=== PATIENT | female | born 1960 | race Caucasian/White ===

== ENCOUNTER 2016-05-15 10:09 | Inpatient (IN) | payer MEDICAID ==
--- NOTE | 2016-05-15 10:11 | EDPHY ---
H & P HPI/ROS: CHIEF COMPLAINT: Fainting in general malaise HISTORY OF PRESENT ILLNESS: This is a 56-year-old female brought to the emergency department by ambulance. She has a history of peptic ulcer disease/ alcohol induced gastritis, anemia, IBS, and depression/PTSD. She initially stated that she had a syncopal episode at home this morning. Upon further questioning she tells me that she was washing her hair, bending her head forward over a basin, began to feel as if she might faint, and was able to lower herself to the ground. She states that there was no actual loss of consciousness. She has not been taking her PPI. She had dark stools about 3 weeks ago, none since. She has had some recent vomiting but has not had coffee- ground emesis or bloody emesis. She reports heartburn in some mid epigastric discomfort that is not unusual for her. She has not taken NSAIDs. She was hospitalized in the spring at that time had upper endoscopy and colonoscopy performed. She has had multiple endoscopic procedures for evaluation of her peptic ulcer disease, gastritis, GI bleeding, and anemia. In addition to the presyncopal episode that she reports she states that she feels poorly overall. She has fatigue, headache, sore throat, and sinus congestion. She believes that she has had fevers on and off at home over the last few days. REVIEW OF SYSTEMS: A ten point review of systems was performed and is negative with the exception of the items mentioned in the HPI. Source: Patient Exam Limitations: No limitations - Personal History Tetanus Vaccine Date: 2005 - Medical/Surgical History Hx Asthma: No Hx Chronic Respiratory Disease: No Hx Diabetes: No Hx Cardiac Disease: No Hx Renal Disease: No Hx Cirrhosis: No Hx Alcoholism: Yes Hx HIV/AIDS: No Hx Splenectomy or Spleen Trauma: No Other PMH: 1. Peptic ulcer disease/alcohol induced gastritis. 2. History of alcohol abuse, sober for 8 years. 3. History of anemia with baseline hemoglobin between 9 and 11. 4. Charcot Carol Tooth deformities. 5. Depression , anxiety, and PTSD. 6. GERD with esophageal stricture requiring dilatation. 7. Hypertension. Number a cholecystectomy in 2010. 9. Bilateral mastectomies with breast reconstruction. 10. Shingles involving her scalp - Social History Smoking Status: Never smoked Alcohol Use: Sober Drug Use: None Additional Social History: She lives alone. She is originally from [place]. 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 She reports that her mother in February. She has a new primary care physician, Dr. Prajapati. She sees Dr. Carver, neurology - Physical Exam Exam: General Appearance: Alert. Vital signs reviewed. Blood pressure 141/92. Head: Scabs on the vertex that have been present for months. No vesicles. Eyes: Pupils equal and round, no conjunctival injection, no discharge. Anicteric. ENT, Mouth: Mucous membranes are slightly dry, mild oropharyngeal erythema or edema. Swallowing and managing her secretions easily. There is a tender 1/2 cm mass behind the right pinna. No mastoid tenderness. Neck: No lymphadenopathy, supple. Trachea midline. Respiratory: Lungs are clear to auscultation; no wheezes, rales, or rhonchi. Cardiovascular: Regular rate and rhythm; no murmur, rub, or gallop. Gastrointestinal: Abdomen is soft and nontender, no masses or organomegaly, bowel sounds normal. Skin: Warm and dry, normal color. Back: Nontender to palpation over the thoracolumbar spine. No CVAT. Extremities: No lower extremity edema, no calf tenderness or swelling. There is a cast on the left foot and lower leg. Neurological: Alert and oriented. Moving all four extremities easily and equally. Cranial nerves II through XII are examined and are intact (visual acuity not tested). Strength is 5 over 5 bilaterally with testing of all major motor groups--left lower extremity not tested due to cast in place. Sensation is intact to light touch over all 4 extremities. . Psychiatric: Slightly anxious. Constitutional: Initial Vital Signs Temperature (C) 37.7 C 05/15/16 10:10 Heart Rate 96 05/15/16 10:10 Respiratory Rate 16 05/15/16 10:10 Blood Pressure 141/92 H 05/15/16 10:10 O2 Sat (%) 99 05/15/16 10:10 O2 Delivery Mode Room Air Allergies/Adverse Reactions: Penicillins Allergy (Severe, Verified 04/02/16 09:54) Anaphylaxis meperidine HCl [From Demerol] Allergy (Mild, Verified 04/02/16 09:54) SITE RASH atenolol Allergy (Verified 04/02/16 09:54) hydrocodone bitartrate [From Lortab] Allergy (Verified 04/02/16 09:54) morphine Allergy (Verified 04/02/16 09:54) venom-honey bee [bee venom (honey bee)] Allergy (Verified 04/02/16 09:54) Home Medications: Medication Instructions Recorded Baclofen [Baclofen 10 mg (*)] 30 mg PO TID 11/12/11 Calcium Carb W/Vit D [Calcium Carb 500 mg PO DAILY 11/12/11 W/Vit D 500/200 (*)] Losartan/Hydrochlorothiazide 1 each PO DAILY 11/12/11 [Losartan-Hctz 100-25 mg Tab] clonazePAM [Klonopin (*)] 1 mg PO BID 11/12/11 Escitalopram Oxalate [Lexapro] 20 mg PO DAILY 03/23/14 Topiramate [Topamax 25MG (*)] 50 mg PO DAILY 08/15/14 Vitamin B Complex [B Complex] 1 each PO DAILY 08/15/14 Pantoprazole Sodium [Protonix 40mg 40 mg PO DAILY #30 tab 08/17/14 (*)] Pregabalin [Lyrica 75mg (*)] 75 mg PO BID 05/15/16 hydrOXYzine HCL [hydrOXYzine HCL 25 mg PO QID PRN 05/15/16 (RX)] Medical Decision Making - Diagnostics EKG Interpretation: 12 lead EKG is interpreted in Trace master View by emergency department physician. ED Course/Re-evaluation: 56-year-old female with a history of anemia and peptic ulcer disease who presents with what sounds like a presyncopal episode. I suspect that this is secondary to anemia and poor oral intake. I doubt a cardiac etiology. EKG shows normal sinus rhythm. She is found to have a hemoglobin of 6.7 and hematocrit of 23. Stool is negative for occult blood. She is not tachycardic or hypotensive in the emergency department. It is not clear whether there is ongoing bleeding or whether this is her chronic anemia. She is being typed and crossed for packed red blood cells. She will be admitted to the hospitalist service. Gastroenterology has been consulted via telephone. She has complained of headache, sinus congestion, and sore throat. Temperature was 37.7 in the emergency department. She does not have signs of strep pharyngitis on exam. Influenza is a possibility,albeit unlikely. She could have sinus infection--these are usually viral. I have reviewed her previous records, including her upper endoscopy report and colonoscopy report from August of 2014. Differential Diagnosis: Syncope including but not limited to vasovagal syncope, arrhythmia, dehydration , and blood loss. - Data Points Laboratory Results: Laboratory Results 05/15/16 10:12 05/15/16 10:12 05/15/16 05/15/16 05/15/16 11:55 11:30 10:12 WBC 6.83 10^3/uL (3.80-9.50) RBC 3.09 L 10^6/uL (4.18-5.33) Hgb 6.7 L g/dL (12.6-16.3) Hct 23.5 L % (38.0-47.0) MCV 76.1 L fL (81.5-99.8) MCH 21.7 L pg (27.9-34.1) MCHC 28.5 L g/dL (32.4-36.7) RDW 18.0 H % (11.5-15.2) Plt Count 605 H 10^3/uL (150-400) MPV 10.1 fL (8.7-11.7) Neut % (Auto) 75.8 H % (39.3-74.2) Lymph % (Auto) 17.3 % (15.0-45.0) [place] % (Auto) 6.1 % (4.5-13.0) Eos % (Auto) 0.1 L % (0.6-7.6) Baso % (Auto) 0.1 L % (0.3-1.7) Nucleat RBC Rel Count 0.3 H % (0.0-0.2) Absolute Neuts (auto) 5.17 10^3/uL (1.70-6.50) Absolute Lymphs (auto) 1.18 10^3/uL (1.00-3.00) Absolute Monos (auto) 0.42 10^3/uL (0.30-0.80) Absolute Eos (auto) 0.01 L 10^3/uL (0.03-0.40) Absolute Basos (auto) 0.01 L 10^3/uL (0.02-0.10) Absolute Nucleated RBC 0.02 H 10^3/uL (0-0.01) Immature Gran % 0.6 % (0.0-1.1) Immature Gran # 0.04 10^3/uL (0.00-0.10) Platelet Estimate INCREASED H (ADEQ) Polychromasia 1+ H Hypochromasia 2+ H Microcytic Cells 2+ H Target Cells 1+ H Tear Drop Cells 1+ H Stomatocytes 2+ H Elliptocytes 1+ H Smear Review By Pending Sodium 140 mEq/L (134-144) Potassium 3.6 mEq/L (3.5-5.2) Chloride 103 mEq/L (97-110) Carbon Dioxide 19 L mEq/l (22-31) Anion Gap 18 mEq/L (8-16) BUN 16 mg/dL (7-23) Creatinine 0.7 mg/dL (0.6-1.0) Estimated GFR > 60 Glucose 111 H mg/dL (70-100) Calcium 9.5 mg/dL (8.5-10.4) Iron 17.0 L mcg/dL (37-170) TIBC 559 H ug/dL (260-490) Iron Saturation 3 L % (20-55) Ferritin 3.5 L ng/mL (6.2-264.0) Troponin I < 0.012 ng/mL (0-0.034) Stool Occult Bld Scrn NEGATIVE (NEGATIVE) Patient ABO/Rh O POSITIVE Antibody Screen NEGATIVE Crossmatch IS Only See Detail Medications Given: Discontinued Medications Acetaminophen (Tylenol) 1,000 mg PO EDNOW ONE Stop: 05/15/16 10:41 Last Admin: 05/15/16 10:47 Dose: 500 mg Hydromorphone HCl (Dilaudid) 0.5 mg IVP EDNOW ONE Stop: 05/15/16 12:01 Last Admin: 05/15/16 12:36 Dose: 0.5 mg Lorazepam (Ativan Injection) 1 mg IVP EDNOW ONE Stop: 05/15/16 12:02 Last Admin: 05/15/16 12:37 Dose: 1 mg Ondansetron HCl (Zofran) 4 mg IVP EDNOW ONE Stop: 05/15/16 12:01 Last Admin: 05/15/16 12:37 Dose: 4 mg Oxycodone/Acetaminophen (Percocet 5/325) 1 tab PO EDNOW ONE Stop: 05/15/16 10:49 Last Admin: 05/15/16 10:50 Dose: 1 tab Departure - Departure Disposition: [facility] Inpatient Acute Clinical Impression: Pre-syncope Anemia Qualifiers: Anemia type: unspecified type Qualifier Code: (D64.9) Anemia, unspecified Condition: Good
--- NOTE | 2016-05-15 10:33 | CPEKG ---
Heart Rate: 94 RR Interval: 638 P-R Interval: 144 QRSD Interval: 78 QT Interval: 408 QTC Interval: 511 P [place]: 72 QRS [place]: 69 T Wave [place]: 8 EKG Severity - ABNORMAL ECG - EKG Impression: SINUS RHYTHM EKG Impression: PROLONGED QT INTERVAL Electronically Signed By: Jennifer Sellers 15-May-2016 15:18:52
[2016-05-15] MEDS ORDERED: ACETAMINOPHEN 500 MG TAB PO ONE (10:40)
[2016-05-15 10:42] LABS: % IMMATURE GRANULYOCYTES 0.6 % (0.0-1.1); ABSOLUTE IMMATURE GRANULOCYTES 0.04 10^3/uL (0.00-0.10); ABSOLUTE NRBC COUNT 0.02 10^3/uL (0-0.01); ADD DIFF? NO; ADD MORPH? YES; ADD SCAN? NO; ATYPICAL LYMPHOCYTE FLAG 20 (0-99); FRAGMENT RBC FLAG 40 (0-99); HEMATOCRIT 23.5 % (38.0-47.0); LEFT SHIFT FLG 0 (0-99); LIPEMIA HEMOLYSIS FLAG 70 (0-99); MEAN CELL HEMOGLOBIN 21.7 pg (27.9-34.1); MEAN CELL VOLUME 76.1 fL (81.5-99.8); MEAN PLATELET VOLUME 10.1 fL (8.7-11.7); NRBC-AUTO% 0.3 % (0.0-0.2); PLATELET CLUMPS FLAG 0 (0-99); PLATELET COUNT 605 10^3/uL (150-400); RED BLOOD CELL COUNT 3.09 10^6/uL (4.18-5.33)
[2016-05-15 10:43] LABS: HEMOGLOBIN 6.7 g/dL (12.6-16.3); MEAN CELL HEMOGLOBIN CONCENTR. 28.5 g/dL (32.4-36.7)
[2016-05-15] MEDS ORDERED: OXYCODONE/APAP 5/325 TAB PO ONE (10:48)
[2016-05-15] MEDS ORDERED: OXYCODONE/APAP 5/325 TAB ONE (10:48)
[2016-05-15 10:50] LABS: ANION GAP 18 mEq/L (8-16); CALCIUM 9.5 mg/dL (8.5-10.4); CARBON DIOXIDE 19 mEq/l (22-31); CHLORIDE 103 mEq/L (97-110); CREATININE 0.7 mg/dL (0.6-1.0); GLOMERULAR FILTRATION RATE > 60; GLUCOSE 111 mg/dL (70-100); POTASSIUM 3.6 mEq/L (3.5-5.2); SODIUM 140 mEq/L (134-144)
[2016-05-15 11:10] LABS: HYPOCHROMIA 2+; MICROCYTES 2+; POLYCHROMASIA 1+
[2016-05-15 11:11] LABS: ELLIPTOCYTES 1+; PLATELET ESTIMATE INCREASED (ADEQ); STOMATOCYTES 2+; TARGET CELLS 1+
[2016-05-15] MEDS ORDERED: PANTOPRAZOLE SODIUM 80 MG in NS 100 ML IV ONE ×2 (11:32→19:00)
[2016-05-15] MEDS ORDERED: HYDROmorphONE/DILAUDID 1 MG/ML SYR IVP ONE (12:00)
[2016-05-15] MEDS ORDERED: ONDANSETRON 4 MG/2 ML VIAL IVP ONE (12:00)
[2016-05-15] MEDS ORDERED: LORazepam 2 MG/ML INJ IVP ONE (12:01)
[2016-05-15] MEDS ORDERED: ONDANSETRON 4 MG/2 ML VIAL IVP PRN (13:25)
[2016-05-15] MEDS ORDERED: ONDANSETRON DISINTEGRATING 4 MG TAB PO PRN (13:25)
[2016-05-15] MEDS ORDERED: hydrOXYzine HCL 25 MG TAB PO PRN (13:31)
--- NOTE | 2016-05-15 14:44 | GHP ---
[f rep st] HISTORY AND PHYSICAL DATE OF ADMISSION: 05/15/2016 CHIEF COMPLAINT: Syncope, anemia. HISTORY OF PRESENT ILLNESS: Patient is a 56-year-old female with history of peptic ulcer disease, chronic anemia, alcohol-induced gastritis, presenting after a syncopal episode today. She reports having a syncopal episode about a week ago in which she went downstairs to get a package from the mailman. After climbing the stairs, she said she stumbled into her apartment. At that time, she reported only nausea with the episode. Today, she was getting ready to go to her new PCP appointment and just was feeling terrible all over. She felt a clammy sensation, sweaty, and a tightness in her chest, and then passed out. She said she was not out very long and she awoke without any confusion. Denies any tongue biting, or bowel or bladder incontinence. She says that she feels this way when she is needing blood. She reports having black, melenic stools 3 weeks ago for about 2-3 days. This was associated with increased heartburn and cramping. Also reports increased fatigue over this time period and has had a headache for 2 days. She also reports having sinus infection symptoms, including congestion, sore throat. She reports epigastric pain intermittently with decreased p.o. intake. Has had some nausea and vomiting this morning without any blood or coffee-grounds emesis. She has history of IBS and has loose stools, anywhere from 2-5 a day. She reports chronic numbness in hands and feet secondary to Charcot-Carol- Tooth. She also reports having shingles for several months and was never treated for it on her scalp. 02/2011: Normal colonoscopy, large hiatal hernia 08/2014: rectal polyp, duodenal biopsy negative REVIEW OF SYSTEMS: A complete a 10-point review of systems negative except as noted in HPI. PAST MEDICAL HISTORY: 1. Peptic ulcer disease, alcohol-induced gastritis. 2. Esophageal stricture, status post several dilatations. 3. History of anemia with a baseline hemoglobin 9.5 to 11. 4. History of alcoholism. 5. Jpryoss-Zniqe-Lfqcl. 6. Left broken foot in February 2016. 7. Major depressive disorder, anxiety, and PTSD. 8. GERD. 9. History of chronic pain . 10. IBS PAST SURGICAL HISTORY: 1. Bilateral mastectomies prophylactically. 2. Breast reconstruction bilaterally. 3. Gallbladder. 4. Ankle surgery on the right. 5. Several esophageal dilatations. SOCIAL HISTORY: Lives in [place] alone in an apartment with her dog. Recovering alcoholic, sober for 8 years. No illicits or drugs. Mother recently in February of 2016. ALLERGIES: Penicillin, Demerol, morphine. MEDICATIONS: See medication reconciliation. FAMILY HISTORY: Two sisters of breast cancer. Mother with aplastic anemia. PHYSICAL EXAM: VITAL SIGNS: Temperature 38, blood pressure 115/63, heart rate 80, respirations 18, 97% on room air. GENERAL: Patient is a tired-appearing, pale. HEENT: PERRLA, EOMI. Oropharynx with a left swollen tonsil, but no exudate or significant erythema. Airway is patent. Midline scalp: She has a scabbed over lesion. Pale conjunctivae. CV: Regular rate and rhythm. No murmurs, gallops, or rubs. LUNGS: Clear to auscultation bilaterally. ABDOMEN : Soft, nontender, nondistended. Positive bowel sounds. : No suprapubic tenderness. MUSCULOSKELETAL: 5/5 upper and lower extremity strength. Left foot is in a cast. NEURO: 2-12 intact. No focal deficits. PSYCH: Alert and oriented x3. Difficult to keep on point when asking questions. LABS: WBC 6.8, hemoglobin 6.7, hematocrit 23, platelets 605. Sodium 140, potassium 3.6, chloride 103, bicarb 26, BUN 16, creatinine 0.7, glucose 111. Iron studies are pending. Urine is pending. Fecal occult blood is negative. ASSESSMENT AND PLAN: 1. Syncope: Suspect this is multifactorial in the setting of anemia and decreased p.o. intake. There is no evidence of ischemia on the EKG. We will check a troponin. Monitor on telemetry. 2. Microcytic anemia: H/H here 6.7 23; baseline 02/02. Patient reports having dark, tarry stools 3 weeks ago; none recently. No recent NSAID use. Does have a history of peptic ulcer disease. In the last hospitalization in 2013 , she had an endoscopy, as well as a capsule study. She was supposed to follow up with a ticket manager at that time, which she has not done. It sounds like she has not. Will transfuse 2 units RBCs and GI will be consulted for further recommendations. Iron studies are pending. 3. History of gastroesophageal reflux disease: PPI drip. 4. Depression: Continue home medications. 5. Wnehhxq-Nlvuz-Jzymh: Continue home medications. 6. Reported shingles: Patient has scabbed over lesions over her scalp for several months; no blister or open lesions. Distribution not c/w shingles. 7. History of alcohol abuse: Reports being sober for 8 years. 8. Diet: clear diet 9. Deep venous thrombosis prophylaxis: SCDs given anemia. DISPOSITION: Patient warrants observation admission given anemia, warranting blood transfusion and GI evaluation. /[id number]/MODL MTDD
[2016-05-15 15:01] LABS: % SATURATION 3 % (20-55); TOTAL IRON BINDING CAPACITY 559 ug/dL (260-490)
[2016-05-15 15:06] LABS: TROPONIN I < 0.012 ng/mL (0-0.034)
[2016-05-15 15:29] LABS: FERRITIN - BCH 3.5 ng/mL (6.2-264.0)
[2016-05-15 16:00] LABS: APTT 28.6 SEC (23.0-38.0); PROTIME(PATIENT) 13.1 SEC (12.0-15.0)
[2016-05-15] MEDS: ACETAMINOPHEN 325 MG TAB PO PRN (16:07)
[2016-05-15] MEDS: BACLOFEN 10 MG TAB PO SCH ×2 (16:07→21:29)
[2016-05-15 16:24] LABS: ALBUMIN 3.9 g/dL (3.5-5.0); BILIRUBIN,TOTAL 0.4 mg/dL (0.1-1.4); BILIRUBIN-CONJUGATED 0.3 mg/dL (0.0-0.5); BILIRUBIN-UNCONJUGATED 0.1 mg/dL (0.0-1.1); TOTAL PROTEIN 6.7 g/dL (6.3-8.2)
[2016-05-15] MEDS: PSEUDOEPHEDRINE HCL 30 MG TAB PO PRN (17:18)
[2016-05-15] MEDS: guaiFENesin 200 MG TAB PO PRN (21:28)
[2016-05-15] MEDS: clonazePAM 0.5 MG TAB PO SCH (21:28)
[2016-05-15] MEDS: ZOLPIDEM TARTRATE 5 MG TAB PO PRN (21:28)
[2016-05-15] MEDS: PANTOPRAZOLE SODIUM 80 MG in NS 100 ML IV SCH (21:29)
[2016-05-15] MEDS: PREGABALIN 75 MG CAP PO SCH (21:29)
[2016-05-15 21:46] LABS: HEMATOCRIT 27.7 % (38.0-47.0); HEMOGLOBIN 8.5 g/dL (12.6-16.3)
[2016-05-15] MEDS: NS 1,000 ML IV SCH (22:03)
[2016-05-16] MEDS: PSEUDOEPHEDRINE HCL 30 MG TAB PO PRN ×2 (02:50→22:49)
[2016-05-16] MEDS: ACETAMINOPHEN 325 MG TAB PO PRN (04:47)
[2016-05-16] MEDS: guaiFENesin 200 MG TAB PO PRN ×4 (04:47→22:31)
[2016-05-16] MEDS: NS 1,000 ML IV SCH (06:06)
[2016-05-16] MEDS: PANTOPRAZOLE SODIUM 80 MG in NS 100 ML IV SCH ×2 (06:06→17:08)
[2016-05-16 06:15] LABS: HEMATOCRIT 25.6 % (38.0-47.0); HEMOGLOBIN 7.6 g/dL (12.6-16.3); MEAN CELL HEMOGLOBIN 23.6 pg (27.9-34.1); MEAN CELL HEMOGLOBIN CONCENTR. 29.7 g/dL (32.4-36.7); MEAN CELL VOLUME 79.5 fL (81.5-99.8); RED BLOOD CELL COUNT 3.22 10^6/uL (4.18-5.33); RED CELL DISTRIBUTION WIDTH 17.7 % (11.5-15.2)
[2016-05-16 06:33] LABS: ANION GAP 13 mEq/L (8-16); CALCIUM 8.2 mg/dL (8.5-10.4); CARBON DIOXIDE 20 mEq/l (22-31); CHLORIDE 110 mEq/L (97-110); CREATININE 0.5 mg/dL (0.6-1.0); GLOMERULAR FILTRATION RATE > 60; GLUCOSE 96 mg/dL (70-100); POTASSIUM 3.5 mEq/L (3.5-5.2); SODIUM 143 mEq/L (134-144)
[2016-05-16] MEDS: VITAMIN B COMPLEX 1 EA CAP/TAB PO SCH (08:56)
[2016-05-16] MEDS: PREGABALIN 75 MG CAP PO SCH ×2 (08:56→22:30)
[2016-05-16] MEDS: TOPIRAMATE 25 MG TAB PO SCH (08:57)
[2016-05-16] MEDS: BACLOFEN 10 MG TAB PO SCH ×3 (08:57→22:31)
[2016-05-16] MEDS: ESCITALOPRAM OXALATE 10 MG TAB PO SCH (08:57)
[2016-05-16] MEDS: CALCIUM CARB W/VIT D 500 MG TAB PO SCH (08:57)
[2016-05-16] MEDS: clonazePAM 0.5 MG TAB PO SCH ×2 (08:57→22:30)
[2016-05-16] MEDS ORDERED: FLU VACC QS 2016-17(3-64YR)/PF 0.5 ML SYR (FLUARIX QUAD) IM ONE ×2 (09:06→12:30)
[2016-05-16] MEDS ORDERED: PNEUMOCOCCAL 0.5ML VACCINE VIAL IM ONE ×2 (09:06→12:30)
[2016-05-16 12:39] LABS: HEMATOCRIT 28.3 % (38.0-47.0); HEMOGLOBIN 8.3 g/dL (12.6-16.3)
[2016-05-16] MEDS: CHLORHEXIDINE GLUCONATE 15 ML UDL PO SCH ×2 (14:40→22:31)
--- NOTE | 2016-05-16 15:18 | GCON ---
[f rep st] CONSULTATION DATE OF CONSULTATION: 05/16/2016 REFERRING PHYSICIAN: Chica Palomino MD INDICATION FOR CONSULTATION: Anemia. HISTORY OF PRESENT ILLNESS: Ms. Oseguera is a pleasant 56-year-old female, who is known from previous EGDs and colonoscopies in 2014 and 2010, for iron deficiency anemia. She also has a history of having peptic ulcer disease, likely related to her alcohol abuse in the past, and reportedly has esophageal strictures status post several dilations, though this was not done by our group , as our previous endoscopies did not reveal any evidence of esophageal strictures. She has history of anemia and had undergone EGD, colonoscopy, and capsule endoscopy in 2010, an EGD and colonoscopy in 2014. The source of blood loss was likely a large hiatal hernia with Ej erosions, even though they were not noted at time of EGD, as they can be difficult to see at times. She is supposed to be on pantoprazole twice daily but the Medicaid does not approve that, so she has only been taking it daily. Approximately 3 weeks ago she had an episode of melenic stools which cleared up after about 2-3 days. At that point she also has some increased heartburn and burping. She ran out of her Protonix about 7-10 days ago and has had some episodes of dysphagia, which she thinks is related to being off her medications. She states that she has had intermittent dysphagia to meats, prior to the most recent 1 about 3 months ago, and then about 6 months ago. She presented to the hospital because of syncope, dyspnea on exertion, and anemia. She has now received some blood transfusions, and she is on IV PPI. I am now called to help evaluate her anemia. PAST MEDICAL HISTORY: Major depressive disorder, anxiety, PTSD, Charcot-Carol- Tooth, history of alcoholism, but no drinks for approximately a year, history of anemia likely that became an erosion with previous EGD, colonoscopy, and capsule endoscopy as noted in the HPI. History of esophageal stricture, but we do not have them in our data, so it must have been prior to this, history of peptic ulcer disease likely related to some of her alcohol abuse as well, back pain, and IBS. PAST SURGICAL HISTORY: Includes bilateral mastectomies, breast reconstructions , cholecystectomy, ankle surgery to the right, and reported esophageal dilation. SOCIAL HISTORY: She lives in [place]. She has been sober for many years. Her mother from aplastic anemia. No tobacco. ALLERGIES: Penicillin - anaphylaxis. Demerol - site reaction. Atenolol - cough. MEDICATIONS: At home included pantoprazole, baclofen, Hyzaar, Lyrica, Lexapro. In hospital she is written for Tylenol p.r.n., baclofen 30 mg twice daily, calcium vitamin D 500 mg daily, Peridex 15 mg twice daily, Klonopin 1 mg twice daily, Lexapro 20 mg daily, guaifenesin p.r.n., hydroxyzine 25 mg p.o. four times daily anxiety, Zofran p.r.n., Protonix IV drip, Lyrica 75 mg twice daily, Sudafed p.r.n., Topamax 50 mg daily, vitamin B complex, Ambien 5 mg p.o. at bedtime. FAMILY HISTORY: Breast cancer in her sister. Mother from aplastic anemia. Father had colon cancer she thinks in his 50s. REVIEW OF SYSTEMS: A complete review of systems was done and negative other than in HPI. Pertinent negatives include no diaphoresis, palpitations, although she does have some chest discomfort which may be related to her reflux , off pantoprazole. Dysphagia as noted in the HPI. Dyspnea on exertion as noted in the HPI. No overt blood loss recently with no hematochezia, melena, hematemesis, hematuria. PHYSICAL EXAM: GENERAL: Well developed, well nourished, no acute distress. VITAL SIGNS: Blood pressure 114/77, pulse 94, respirations 20, 99% on room air. 36.8 temperature. HEENT: Eyes anicteric, PERRL, EOMI. Mouth no lesions, moist membranes. NECK: Supple. Full range of motion. No JVD. BACK: No spine tenderness. No CVA tenderness. LUNGS: Clear to auscultation. CARDIAC: S1, S2. Regular rate and rhythm. No murmurs, rubs, gallops appreciated. ABDOMEN: Bowel sounds are normal in pitch and frequency. Soft, nontender. No hepatosplenomegaly. EXTREMITIES: No cyanosis, clubbing, or edema. NEUROLOGIC : Cranial nerves intact. Nonfocal. SKIN: No stigmata of advanced liver disease. No rashes. LABORATORY DATA: From admission on May 15, 2016: WBC 6.3, hemoglobin 6.7, hematocrit 23.5, platelet count 605. This morning H and H are 8.3 and 28.3. ProTime from May 15, 2016, is 13.1, INR 1.0, PTT 28.5. From May 16, 2016, sodium 143, potassium 3.5, chloride 110, BUN 9, creatinine 0.5, glucose 96, calcium 8.2. From May 15, 2016, iron 17, TIBC 559, iron saturation 3%, ferritin 3.5. Also from the AST 22, ALT 27, alkaline phosphatase 94, bilirubin 0.4. From the , Hemoccult stool negative. EKG showed normal sinus rhythm. Somewhat prolonged QT. No evidence of ischemia. Previous Endoscopies: EGD and colonoscopy performed August 16, 2014. EGD showed large hiatal hernia. They did not note any Ej erosions, but as noted above these can be missed at times of EGDs. Small-bowel biopsies were obtained. Colonoscopy procedure report from that time: Rectal polyp measuring 5 mm. Rectal ulceration. Otherwise normal colonoscopy to cecum. From February 04, 2011: Colonoscopy with only fair prep, showed normal colonoscopy. EGD from February 03, 2011: Revealed a large hiatal hernia. She had a capsule endoscopy as an outpatient in 2010, which was not a great prep , and showed 1 tiny small erosion. Otherwise was normal. Pathology from February 2011: Duodenal mucosa showed no diagnostic features. Pathology report from August 2014: Revealed a rectal polyp to be hyperplastic. Duodenal biopsies were unremarkable. No evidence of celiac sprue. The biopsies of the ulceration mild superficial nonspecific changes. Negative for proctitis. ASSESSMENT: 1. Recurrent iron deficiency anemia. Likely related to Ej erosions from a large hiatal hernia. 2. Dysphagia, query motility disorder secondary to acid reflux versus EoE versus stricture. 3. Personal history of rectal polyp and family history of colon cancer in her father in his 50s. Recommend colonoscopy in 5 years. 4. Qsuzwdt-Kruxx-Vmfvr. 5. History of shingles. 6. DVT prophylaxis. RECOMMENDATIONS: 1. EGD for evaluation of dysphagia. I will evaluate her lager hiatal hernia to see if any Ej erosions are active. Even if I do not see Ej erosions, I think those are going to be the etiology for her iron deficiency anemia. 2. IF EGD is negative, recommend repeat capsule endoscopy as an outpatient. The procedure in 2010, was poor prep and we want to make sure there is no vascular ectasias. I am not worried about malignancy given the 6 year interval from her previous capsule endoscopy. 3. After PPI IV drip is finished, change to p.o. twice daily 40 mg of pantoprazole twice daily or omeprazole twice daily. 4. Antireflux lifestyle changes. She is to cut food into small pieces and chew well. 5. Treatment of her other issues: Depression, Tpksaqv-Zrybh-Kcwvx, shingles as per hospitalist. 6. I also recommend a colonoscopy in 5 years from previous, given family history. Thank you for allowing me to participate in the care of this patient. Please do not hesitate to call with questions. /[id number]/MODL MTDD
[2016-05-16] MEDS ORDERED: PROPOFOL/EMULSION 500 MG/50 ML BOTTLE IV ONE (16:22)
[2016-05-16] MEDS ORDERED: LIDOCAINE 2% 5 ML SDV ONE (16:27)
--- NOTE | 2016-05-16 16:52 | POSTOPPROG ---
Post Op Note Date of Operation: 05/16/16 Surgeon: Mark Robin Anesthesiologist: fabienne Anesthesia: Other (Specify) (IV general) Pre-op Diagnosis: dysphagia, anemia Post-op Diagnosis: gastritis, distal esoph stenosis, HH with Ej quinn, query EoE? Indication: dysphagia Procedure: EGD with bx and dilation Findings: possible EoE in mid esoph, distal esoph GE junstion stenosis, gastritis ero Inf/Abcess present in the surg proc area at time of surgery?: No EBL: Minimal (few ml) Complications: none immediate Specimen(s): 1) gastric antrum - gastritis (erosions on EGD) 2) mid esoph - r/o EoE 3) distal esoph - eval for EoE
--- NOTE | 2016-05-16 18:17 | HOSPPROG ---
Hospitalist Progress Note Assessment/Plan: #Microcytic anemia -appreciate GI consultation. Plan for EGD today. Cont PPI. H/H stabe #h/o gastritis: cont PPI #Depression/anxiety: very tearful today. Has a lot of stressors with mother passing Oct, breaking foot, etc. Feel that mood is effecting her overall symptoms -cont home meds. Follows at [facility] #Syncope -suspect due to anemia, decreased PO intake -no e/o arrhythmia, trop and EKG negative for ischemia #Chronic pain -cont home meds. Not increasing these here; she can FU with PCP #Diet: clears and ADAT DVT ppx: SCDs Disp: warrant inpt admission for EGD and serial H/H Subjective: tearful. Hurt all over. No melena Objective: Vital Signs Temp Pulse Resp BP Pulse Ox 37.1 C 84 18 117/90 H 93 05/16/16 18:02 05/16/16 18:02 05/16/16 18:02 05/16/16 18:02 05/16/16 18:02 05/15/16 05/16/16 05/17/16 05:59 05:59 05:59 Intake Total 150 Output Total 0 Balance 150 PT 13.1 SEC (12.0-15.0) 05/15/16 15:30 INR 1.00 (0.83-1.16) 05/15/16 15:30 - Physical Exam Constitutional: other (tearful) Eyes: PERRL, pale conjunctiva Ears, Nose, Mouth, Throat: moist mucous membranes, hearing normal Cardiovascular: regular rate and rhythym, no murmur, rub, or gallop Respiratory: no respiratory distress, no rales or rhonchi Gastrointestinal: normoactive bowel sounds, soft, non-tender abdomen, no palpable masses Genitourinary: no bladder fullness Musculoskeletal: other (left foot in cast) Neurologic: AAOx3 Psychiatric: anxious, other (tearful) ICD10 Worksheet Patient Problems: Problems Problem Status Diagnosed Alcohol abuse Active Esophagitis Active Gastritis Active Gastrointestinal hemorrhage Active Anemia Acute Pre-syncope Acute
[2016-05-16] MEDS: PANTOPRAZOLE SODIUM 40 MG TAB PO SCH (22:31)
[2016-05-16] MEDS: ZOLPIDEM TARTRATE 5 MG TAB PO PRN (22:31)
--- NOTE | 2016-05-17 03:39 | GPN ---
[f rep st] PROCEDURE NOTE PROCEDURE: Esophagogastroduodenoscopy with biopsy and dilation. INDICATIONS: 1. Dysphagia. 2. Anemia likely related to Ej erosions from hiatal hernia even though they were not seen on previous EGD. POSTOPERATIVE DIAGNOSES: 1. Possible eosinophilic esophagitis status post biopsies to mid and distal esophagus. 2. Esophageal stenosis at gastroesophageal junction status post dilation with TTS balloon from 15 through 20 mm. 3. Large hiatal hernia with Ej erosions noted. 4. Antral erosive gastritis. 5. Normal duodenal. INFORMED CONSENT: I had a detailed discussion with the patient regarding the procedure, alternatives, benefits, and risks including bleeding, perforation, infection, risk of medication. Informed consent was signed and witnessed. COMPLICATIONS: None immediate. MEDICATIONS USED: IV general as per Dr. Guy. DESCRIPTION OF PROCEDURE: After adequate sedation, patient was in left lateral decubitus position. The forward viewing upper endoscope and oropharynx advanced under direct visualization down the esophagus. There was some ringed mucosa in the midesophagus suggestive of EOE. The endoscope was advanced down to the distal esophagus. There was an obvious stenosis at the GE junction. The endoscope was advanced beyond this. There was a large hiatal hernia sac and active Ej erosions noted in the hiatal hernia area. The endoscope was advanced down into the antrum of the stomach and there was some erosive gastritis with a number of different small punctate erosions in the antrum. No active bleeding. The endoscope was advanced through pylorus into a normal duodenal bulb and sweep. The endoscope was withdrawn back in the stomach. Retroflex examination was performed. The Ej erosions were again noted. The endoscope was unretroflexed and biopsies were taken from the antrum for histologic review. The endoscope was withdrawn back into the esophagus and biopsies from the mid esophagus and distal esophagus were obtained in separate jars for evaluation of eosinophilic esophagitis. A TTS balloon was then placed through the endoscope, across the stenosis at the GE junction and inflated to 15 mm for 30 seconds with no significant resistance and then inflated to 16.5 mm with recommended pressure for 1 minute, then 18 mm recommended pressure for 1 minute. The balloon was deflated. The areas were examined endoscopically. Mild dilation was noted. Additional TTS balloon was placed through the endoscope, down into the GE junction, inflated to 19 mm under recommended pressure for 1 minute, then 20 mm under rectal pressure for 1 minute. The balloon was then deflated and withdrawn. The area was examined endoscopically. More moderate dilation was noted. The endoscope was then advanced in the stomach and any remaining air and fluid was suctioned out. The endoscope was then completely withdrawn, confirming the above findings. Patient tolerated the procedure well and was transferred to the recovery room in satisfactory condition. IMPRESSION: 1. Possible eosinophilic esophagitis in mid esophagus with ringed esophagus status post biopsies of the mid and distal esophagus for evaluation of eosinophilic esophagitis (EOE). 2. Distal esophageal stenosis at gastroesophageal junction status post TTS balloon dilation from 15-20 mm. 3. Large hiatal hernia with active Ej erosions. 4. Antral erosive gastritis. 5. Normal duodenal. RECOMMENDATIONS: 1. Follow up pathology. 2. If there is no evidence of H pylori on stomach biopsy, recommend rechecking H pylori antibody or stool antigen, although the antibody may be more accurate since she is on PPIs. 3. Follow up biopsy from the esophagus. If evidence of eosinophilic esophagitis, would recommend the patient see an labor delivery rn and we may treat with swallowed not inhaled fluticasone. 4. Cut food into small pieces and chew well. 5. Advance diet. 6. Return back to [facility] for [facility] care. 7. Patient can be discharged from [facility] when hospitalist feels that she is stable. I do not think that she will have any significant active bleeding from the lesions that we noted. 8. PPI p.o. b.i.d. half an hour before breakfast and dinner as a treatment for her Ej erosions. We may need to contact Medicaid in order to approve a b.i.d. dosage. 9. Iron replacement until no longer iron deficient, then stop iron and follow on PPI BID. If becomes anemic again, then capsule endoscopy. She may require [facility] iron replacement. If she emains with good Hb/HCT, after 6 months can try on PPI once daily, although I suspect she will probalby bleed from her Ej erosion on once daily PPI. The correct amount of PPI is the least amount that control her slow GI blood loss from her Ej erosions. 10. Further recommendations following the above and clinical course. Thank you for allowing me to participate in this patient's healthcare. Do not hesitate to call me with any questions. /[id number]/MODL MTDD
[2016-05-17 05:11] LABS: HEMATOCRIT 23.4 % (38.0-47.0); HEMOGLOBIN 7.2 g/dL (12.6-16.3); MEAN CELL HEMOGLOBIN 23.9 pg (27.9-34.1); MEAN CELL HEMOGLOBIN CONCENTR. 30.8 g/dL (32.4-36.7); MEAN CELL VOLUME 77.7 fL (81.5-99.8); RED BLOOD CELL COUNT 3.01 10^6/uL (4.18-5.33); RED CELL DISTRIBUTION WIDTH 17.6 % (11.5-15.2)
[2016-05-17 05:33] LABS: ANION GAP 8 mEq/L (8-16); CALCIUM 8.6 mg/dL (8.5-10.4); CARBON DIOXIDE 25 mEq/l (22-31); CHLORIDE 108 mEq/L (97-110); CREATININE 0.6 mg/dL (0.6-1.0); GLOMERULAR FILTRATION RATE > 60; GLUCOSE 94 mg/dL (70-100); POTASSIUM 3.6 mEq/L (3.5-5.2); SODIUM 141 mEq/L (134-144)
[2016-05-17] MEDS: ACETAMINOPHEN 325 MG TAB PO PRN ×2 (05:42→21:10)
[2016-05-17] MEDS: guaiFENesin 200 MG TAB PO PRN ×2 (05:42→21:09)
[2016-05-17] MEDS: PSEUDOEPHEDRINE HCL 30 MG TAB PO PRN ×2 (05:42→21:18)
--- NOTE | 2016-05-17 08:37 | HOSPPROG ---
Hospitalist Progress Note Assessment/Plan: #UGIB -appreciate GI consultation -EGD showed large hiatal hernia with Ej lesions, erosive gastritis -possible eosinophilic esophagitis; bx pending -H pylori negative -cont PPI BID, repeat H/H low, but stable #Symptomatic microcytic anemia -dizzy this morning with small drop in H/H. Suspect due to instrumentation with EGD -will monitor overnight #h/o gastritis: cont PPI BID #Depression/anxiety: very tearful today. Has a lot of stressors with mother passing Oct, breaking foot, etc. Feel that mood is effecting her overall symptoms -cont home meds. Follows at [facility] #Syncope -suspect due to anemia, decreased PO intake -no e/o arrhythmia, trop and EKG negative for ischemia #Chronic pain -cont home meds. Not increasing these here; she can FU with PCP #Diet: clears and ADAT DVT ppx: SCDs Disp: plan for DC in morning if H/H stable Subjective: dark stool this morning and dizzy Objective: Vital Signs Temp Pulse Resp BP Pulse Ox 37.1 C 88 20 119/72 94 05/17/16 07:19 05/17/16 07:19 05/17/16 07:19 05/17/16 07:19 05/17/16 07:19 Laboratory Results 05/17/16 04:49 05/17/16 04:49 05/16/16 05/17/16 05/18/16 05:59 05:59 05:59 Intake Total 350 Output Total 0 Balance 350 PT 13.1 SEC (12.0-15.0) 05/15/16 15:30 INR 1.00 (0.83-1.16) 05/15/16 15:30 - Physical Exam Constitutional: other (pale) Eyes: PERRL, pale conjunctiva Ears, Nose, Mouth, Throat: moist mucous membranes, hearing normal Cardiovascular: regular rate and rhythym, no murmur, rub, or gallop Respiratory: no respiratory distress, no rales or rhonchi Gastrointestinal: normoactive bowel sounds, soft, non-tender abdomen, no palpable masses Genitourinary: no bladder fullness Musculoskeletal: other (left foot in cast) Neurologic: AAOx3 Psychiatric: interacting appropriately ICD10 Worksheet Patient Problems: Problems Problem Status Diagnosed Alcohol abuse Active Esophagitis Active Gastritis Active Gastrointestinal hemorrhage Active Anemia Acute Pre-syncope Acute
[2016-05-17] MEDS: BACLOFEN 10 MG TAB PO SCH ×3 (08:58→21:09)
[2016-05-17] MEDS: CALCIUM CARB W/VIT D 500 MG TAB PO SCH (08:58)
[2016-05-17] MEDS: TOPIRAMATE 25 MG TAB PO SCH (08:58)
[2016-05-17] MEDS: VITAMIN B COMPLEX 1 EA CAP/TAB PO SCH (08:58)
[2016-05-17] MEDS: PREGABALIN 75 MG CAP PO SCH ×2 (08:58→21:09)
[2016-05-17] MEDS: ESCITALOPRAM OXALATE 10 MG TAB PO SCH (08:59)
[2016-05-17] MEDS: CHLORHEXIDINE GLUCONATE 15 ML UDL PO SCH ×2 (08:59→21:10)
[2016-05-17] MEDS: clonazePAM 0.5 MG TAB PO SCH ×2 (08:59→21:09)
[2016-05-17] MEDS: PANTOPRAZOLE SODIUM 40 MG TAB PO SCH ×2 (08:59→21:09)
--- NOTE | 2016-05-17 09:46 | SOAPPROG ---
[facility] Progress Note Assessment/Plan: Assessment:Plan: 1) UGI bleed - EGD with erosive gastritis and Ej erosions and large HH, no DU no . Will need PPI BID (see EGD report), check h pylori 2) Lower HB/HCT this am - did bx's and dilation, BUN/Cr ratio increased, so wonder if the blood loss form that accounts for drop and darkish stools last, monitor H/H later today 3) Esoph Stricture - s/p dilation and bx, either related to acid reflux or EoE, follow up bx, PPI BID for now 4) Diet - regular pt's history is a bit off, she is quite tangential when answering questions. She now says she been taking PPI BID and ran out 10-12 days ago. I spoke to [facility] and she did get 90 days of PPI in February - if on BID should have ran out over a month ago. Not clear to me exactly what dose she has been taking. 05/17/16 09:48 Subjective: CC- UBGI blood loss with anemia, large HH with Ej erosions, esoph stricture had dark stool last night, some abdo pain with PO intake no n/v, no CP Objective: Vital Signs Temp Pulse Resp BP Pulse Ox 37.1 C 88 20 119/72 94 05/17/16 07:19 05/17/16 07:19 05/17/16 07:19 05/17/16 07:19 05/17/16 07:19 Laboratory Results 05/17/16 04:49 05/17/16 04:49 05/16/16 05/17/16 05/18/16 05:59 05:59 05:59 Intake Total 350 Output Total 0 Balance 350 PT 13.1 SEC (12.0-15.0) 05/15/16 15:30 INR 1.00 (0.83-1.16) 05/15/16 15:30 A+Ox3 CTA S1S2, RRR +BS, soft mild tenderness no r/g Laboratory Tests 05/16/16 05/16/16 05/17/16 06:03 12:33 04:49 Hgb 7.6 L 8.3 L 7.2 L Hct 25.6 L 28.3 L 23.4 L Carbon Dioxide 20 L 25 Anion Gap 13 8 H. pylori IgG Antibody Pending ICD10 Worksheet Patient Problems: Problems Problem Status Diagnosed Alcohol abuse Active Esophagitis Active Gastritis Active Gastrointestinal hemorrhage Active Anemia Acute Pre-syncope Acute
[2016-05-17 12:34] LABS: HEMATOCRIT 25.2 % (38.0-47.0); HEMOGLOBIN 7.9 g/dL (12.6-16.3)
[2016-05-17] MEDS ORDERED: LORazepam 1 MG TAB PO ONE (13:01)
[2016-05-17] MEDS: BACITRACIN OINTMENT 1 PACKET TP SCH ×2 (13:25→21:10)
--- NOTE | 2016-05-17 17:18 | DX ---
Portable Chest May 17, 2016, 1622 hours Clinical Indications: Fever, cough. Findings: Compare 2013 and 2011. Frontal view (only) shows clear lungs and no masses. Heart size a nd pulmonary vessels appear normal. No evidence of pleural effusion. Breast implants are present. Hi atal hernia appears larger than before. Impression: Hiatal hernia. Recommend departmental PA and lateral chest radiographs.
[2016-05-17] MEDS ORDERED: NS 1,000 ML IV SCH (17:30)
[2016-05-17 17:52] LABS: COLOR YELLOW; LEUKOCYTE ESTERASE,URINE 2+ (NEGATIVE); NITRITE,URINE NEGATIVE (NEGATIVE)
[2016-05-17 18:03] LABS: AMORPHOUS PRESENT /hpf (NONE-1+); BACTERIA TRACE /hpf (NONE SEEN); MUCUS TRACE /lpf (NONE-1+); RBC,URINE NONE SEEN /hpf (0-3); WBC,URINE 50-182 /hpf (0-3)
[2016-05-17 19:54] VITALS: RESP 16
[2016-05-17] MEDS: ZOLPIDEM TARTRATE 5 MG TAB PO PRN (21:09)
[2016-05-18 05:53] LABS: HEMATOCRIT 23.9 % (38.0-47.0); HEMOGLOBIN 7.2 g/dL (12.6-16.3); MEAN CELL HEMOGLOBIN 23.3 pg (27.9-34.1); MEAN CELL HEMOGLOBIN CONCENTR. 30.1 g/dL (32.4-36.7); MEAN CELL VOLUME 77.3 fL (81.5-99.8); RED BLOOD CELL COUNT 3.09 10^6/uL (4.18-5.33); RED CELL DISTRIBUTION WIDTH 17.7 % (11.5-15.2)
[2016-05-18 07:57] VITALS: BP 136/105; PULSE 82; TEMP 98.1; O2SAT 95
--- NOTE | 2016-05-18 08:20 | SOAPPROG ---
[facility] Progress Note Assessment/Plan: Assessment:Plan: 1) UGI bleed - EGD with erosive gastritis and Ej erosions and large HH, no DU no . Will need PPI BID (see EGD report), check h pylori 2) Lower HB/HCT this am - did bx's and dilation, BUN/Cr ratio increased, so wonder if the blood loss form that accounts for drop and darkish stools last, monitor H/H later today 3) Esoph Stricture - s/p dilation and bx, either related to acid reflux or EoE, follow up bx, PPI BID for now 4) Diet - regular pt's history is a bit off, she is quite tangential when answering questions. She now says she been taking PPI BID and ran out 10-12 days ago. I spoke to [facility] and she did get 90 days of PPI in February - if on BID should have ran out over a month ago. Not clear to me exactly what dose she has been taking. 05/17/16 09:48 05/18/16 08:16 as above 1) HH with Ej erosions - PPI BID, iron replacement, when iron is nml, stop iron and keep PPI BID. IF becomes iron def again, then need buttermaker iron. H pylori negative 2) Anemia - iron replacement, PCP to follow. Stable BUN /Cr ratio going down so bleeding has stopped 3) esoph stricture - repeat EGD prn dysphagia, PPI, antireflux lifestyle changes will sign off please recall if needed thank you Subjective: CC- UGI bleed, Ej erosions no pain, no melena, no n/v Objective: Vital Signs Temp Pulse Resp BP Pulse Ox 36.7 C 82 16 136/105 H 95 05/18/16 07:55 05/18/16 07:55 05/18/16 07:55 05/18/16 07:55 05/18/16 07:55 Laboratory Results 05/18/16 05:01 05/17/16 04:49 05/17/16 05/18/16 05/19/16 05:59 05:59 05:59 Intake Total 350 1520 Output Total 0 1800 Balance 350 -280 PT 13.1 SEC (12.0-15.0) 05/15/16 15:30 INR 1.00 (0.83-1.16) 05/15/16 15:30 A+Ox3 CTA S1S2 +BS, soft nt Laboratory Tests 05/17/16 05/17/16 05/18/16 04:49 12:20 05:01 Hgb 7.2 L 7.9 L 7.2 L Hct 23.4 L 25.2 L 23.9 L ICD10 Worksheet Patient Problems: Problems Problem Status Diagnosed Alcohol abuse Active Esophagitis Active Gastritis Active Gastrointestinal hemorrhage Active Anemia Acute Pre-syncope Acute
[2016-05-18] MEDS: PREGABALIN 75 MG CAP PO SCH (09:10)
[2016-05-18] MEDS: CHLORHEXIDINE GLUCONATE 15 ML UDL PO SCH (09:10)
[2016-05-18] MEDS: clonazePAM 0.5 MG TAB PO SCH (09:10)
[2016-05-18] MEDS: BACLOFEN 10 MG TAB PO SCH (09:10)
[2016-05-18] MEDS: ESCITALOPRAM OXALATE 10 MG TAB PO SCH (09:10)
[2016-05-18] MEDS: TOPIRAMATE 25 MG TAB PO SCH (09:11)
[2016-05-18] MEDS: BACITRACIN OINTMENT 1 PACKET TP SCH (09:11)
[2016-05-18] MEDS: PANTOPRAZOLE SODIUM 40 MG TAB PO SCH (09:11)
[2016-05-18] MEDS: VITAMIN B COMPLEX 1 EA CAP/TAB PO SCH (09:11)
[2016-05-18] MEDS: CALCIUM CARB W/VIT D 500 MG TAB PO SCH (09:11)
--- NOTE | 2016-05-18 15:57 | PDIAF ---
- Diagnosis Diagnosis: GIB Code Status: Full Code - Medication Management Discharge Medications: Medications to Continue on Transfer Baclofen [Baclofen 10 mg (*)] 30 mg PO TID 11/12/11 [Last Taken 05/14/16 21:00] Calcium Carb W/Vit D [Calcium Carb W/Vit D 500/200 (*)] 500 mg PO DAILY [Last Taken 08/15/14] Losartan/Hydrochlorothiazide [Losartan-Hctz 100-25 mg Tab] 1 each PO DAILY 11/11 [Last Taken 05/14/16] clonazePAM [Klonopin (*)] 1 mg PO BID 11/12/11 [Last Taken 05/14/16 21:00] Escitalopram Oxalate [Lexapro] 20 mg PO DAILY 03/23/14 [Last Taken 05/14/16] Topiramate [Topamax 25MG (*)] 50 mg PO DAILY 08/15/14 [Last Taken 05/14/16] Vitamin B Complex [B Complex] 1 each PO DAILY 08/15/14 [Last Taken 08/15/14] Pregabalin [Lyrica 75mg (*)] 75 mg PO BID 05/15/16 [Last Taken 05/14/16 21:00] Pantoprazole Sodium [Protonix 40mg (*)] 40 mg PO BID #60 tab 05/17/16 [Last Taken Unknown] Discharge Medications: Refer to the Discharge Home Medication list for PRN reason. - Orders Services needed: Home Care, Registered Nurse, Physical Therapy Home Care Face to Face: I certify that this patient was under my care and that I had the required [id number] encounter meeting the encounter requirements on the discharge day. My findings support the fact that the patient is homebound as defined in CMS Chapter 7 Medicare Benefits Manual 30.1.1, The condition of the patient is such that there exists a normal inability to leave home and consequently, leaving home would require a considerable and taxing effort. Diet Recommendation: no restrictions on diet Diet Texture: Regular Texture Diet - Follow Up Care Current Providers and Referrals: IN STATE,. [Unknown] - Mark Robin MD [Medical Doctor] -
--- NOTE | 2016-05-19 03:40 | GDS ---
[f rep st] DISCHARGE SUMMARY DISCHARGE DIAGNOSES: Include: 1. Upper gastrointestinal bleed secondary to Ej lesions and erosive gastritis. 2. Severe microcytic anemia. 3. Depression and anxiety. 4. Syncope thought secondary to anemia and hypovolemia. 5. Chronic pain. 6. History of esophageal stricture status post dilation. 7. History of alcoholism. 8. Irritable bowel syndrome. HISTORY OF PRESENT ILLNESS: A 56-year-old female with a history of peptic ulcer disease, anemia, and alcohol-induced gastritis who presents with syncope. For details of patient's initial presentation, please see the History and Physical dated 05/15/2015. CONSULTATIVE SERVICES: Include gastroenterology, Dr. Robin. PROCEDURES: On 05/16/2016, patient underwent EGD with biopsy and dilation. HOSPITAL COURSE: By issue: 1. Acute upper GI bleed. Patient was stabilized and taken for EGD. Biopsies were obtained and the patient is being discharged on b.i.d. PPI. She has received 3-unit blood transfusion during her hosp ital stay and is hemodynamically stable on the day of disposition. She is to follow in the outpatien t setting with both Dr. Robin and her primary care provider for post disposition followup and lab ch ecks. 2. Severe anemia. Patient was symptomatic at presentation. Presented with a hemoglobin of 6.7. As mentioned above, she received 3-unit blood transfusion prior to disposition. H and H remained stabl e in the last 48 hours of her stay. She will be sent on b.i.d. PPI and outpatient monitoring. 3. Depression/anxiety. Continued on her home medications. FOLLOWUP: Appointments include: 1. With Home Health to follow in the short course post disposition for lab checks and vital monitori ng. 2. With Dr. Robin for post disposition followup of her EGD results and path from her biopsies. 3. With her primary care provider for long-term management of her chronic pain and medical comorbidi ties. PENDING STUDIES: At the time of this dictation include pathology specimens from her EGD which are pe nding. Dr. Robin will follow. I spent greater than 30 minutes in the planning and coordination of this discharge. /[id number]/MODL
== END 2016-05-18 15:16 | disposition home or self-care (01) | DRG 379 ==
LOC: EDUNIT# → INTOOBSV 12:05 → F3E 13:57 → OBSVTOIN 05-16 14:44
PROVIDERS: ADMIT Internal Medicine; ATTEND Hospitalist
PROC: 0DB68ZX Excision of Stomach, Via Natural or Artificial Opening Endoscopic, Diagnostic (ICD-10-PCS; principal; 2016-05-16 16:23)
PROC: 30233N1 Transfusion of Nonautologous Red Blood Cells into Peripheral Vein, Percutaneous Approach (ICD-10-PCS; principal; 2016-05-16 16:23)
PROC: 0DB28ZX Excision of Middle Esophagus, Via Natural or Artificial Opening Endoscopic, Diagnostic (ICD-10-PCS; principal; 2016-05-16 16:23)
PROC: 0D738ZZ Dilation of Lower Esophagus, Via Natural or Artificial Opening Endoscopic (ICD-10-PCS; principal; 2016-05-16 16:23)
PROC: 0DB38ZX Excision of Lower Esophagus, Via Natural or Artificial Opening Endoscopic, Diagnostic (ICD-10-PCS; principal; 2016-05-16 16:23)
DX: K92.2 Gastrointestinal hemorrhage, unspecified (principal); D50.9 Iron deficiency anemia, unspecified; K29.60 Other gastritis without bleeding; K22.2 Esophageal obstruction; R13.10 Dysphagia, unspecified; K44.9 Diaphragmatic hernia without obstruction or gangrene; K21.0 Gastro-esophageal reflux disease with esophagitis; R55 Syncope and collapse; I10 Essential (primary) hypertension; K58.0 Irritable bowel syndrome with diarrhea; G89.29 Other chronic pain; F43.10 Post-traumatic stress disorder, unspecified; F10.21 Alcohol dependence, in remission; G60.0 Hereditary motor and sensory neuropathy; Z87.11 Personal history of peptic ulcer disease; Z23 Encounter for immunization
CPT/HCPCS: 96374; 97165-GO; C1726; G0008; G0009; G0378; J1170; J2405; J2704; P9016

== ENCOUNTER 2016-09-03 12:25 | Observation (INO) | payer MEDICAID ==
[2016-09-03 13:09] LABS: COLOR YELLOW; LEUKOCYTE ESTERASE,URINE TRACE (NEGATIVE); NITRITE,URINE NEGATIVE (NEGATIVE)
[2016-09-03 13:12] LABS: BACTERIA TRACE /hpf (NONE SEEN); MUCUS TRACE /lpf (NONE-1+); RBC,URINE 15-25 /hpf (0-3)
--- NOTE | 2016-09-03 13:17 | EDPHY ---
H & P Time Seen by Provider: 09/03/16 12:57 HPI/ROS: CHIEF COMPLAINT: Multiple complaints HISTORY OF PRESENT ILLNESS: 56-year-old female with a history of peptic ulcer disease and chronic pain presents with multiple complaints. 5 months ago she sustained fractures of 3 metacarpals in the left foot. She was placed in a cast and then a walking boot. The pain had almost completely resolved. She states that 2 days ago she was getting out of bed when she twisted her foot wrong and now has recurrent pain in her left foot. The pain is moderate and increases with any movement or with weight-bearing. She also complains of dysuria and urinary frequency and thinks that she has a urinary tract infection. She also has a history of GI bleeds. 2 weeks ago she had 1 episode of black stools, but no black stool since then. She is concerned that she is anemic again and requests a CBC. REVIEW OF SYSTEMS: Constitutional: No fever, no chills Eyes: No visual changes ENT: No sore throat Respiratory: No cough, no shortness of breath Cardiac: No chest pain Gastrointestinal: No nausea, no vomiting, no abdominal pain Skin: No rash Neurological: No headache, no numbness, no weakness Past Medical/Surgical History: Chronic pain Anxiety UTIs GI bleed Social History: No recent alcohol Smoking Status: Never smoked Physical Exam: General Appearance: Alert, does not appear in pain Eyes: Pupils equal and round, conjunctival pallor ENT, Mouth: Mucous membranes moist Neck: Normal inspection Respiratory: Lungs are clear to auscultation Cardiovascular: Regular rate and rhythm Gastrointestinal: Abdomen is soft and nontender Neurological: A&O, nonfocal exam Skin: Warm and dry Extremities: left foot-tenderness and swelling over the entire midfoot and forefoot, especially over the lateral aspect distal forefoot, no erythema or warmth Psychiatric: Mood and affect normal Constitutional: Initial Vital Signs Temperature (C) 38 C 09/03/16 12:31 Heart Rate 92 09/03/16 12:31 Respiratory Rate 18 09/03/16 12:31 Blood Pressure 123/86 H 09/03/16 12:31 O2 Sat (%) 94 09/03/16 12:31 O2 Delivery Mode Room Air Allergies/Adverse Reactions: Penicillins Allergy (Severe, Verified 09/03/16 12:29) Anaphylaxis meperidine HCl [From Demerol] Allergy (Mild, Verified 09/03/16 12:29) SITE RASH atenolol Allergy (Verified 09/03/16 12:29) hydrocodone bitartrate [From Lortab] Allergy (Verified 09/03/16 12:29) morphine Allergy (Verified 09/03/16 12:29) venom-honey bee [bee venom (honey bee)] Allergy (Verified 09/03/16 12:29) Home Medications: Medication Instructions Recorded Baclofen [Baclofen 10 mg (*)] 10 mg PO TID 09/03/16 Calcium Carbonate/Vitamin D3 1 each PO DAILY 09/03/16 [Calcium 500-Vit D3 200 Tablet] Escitalopram Oxalate [Lexapro] 20 mg PO DAILY 09/03/16 Losartan/Hydrochlorothiazide 1 each PO DAILY 09/03/16 [Losartan-Hctz 100-25 mg Tab] Pregabalin [Lyrica 75mg (*)] 75 mg PO BID PRN 09/03/16 Topiramate [Topamax 100MG (*)] 100 mg PO BID 09/03/16 clonazePAM [Klonopin (*)] 0.5 mg PO DAILY 09/03/16 hydrOXYzine HCL [Vistaril 25MG] 25 mg PO QID PRN 09/03/16 oxyCODONE IR [Oxycodone Ir (*)] 5 mg PO TID PRN 09/03/16 Pantoprazole Sodium [Protonix 40mg 40 mg PO BID #60 tab 09/04/16 (*)] levOFLOXACIN [levAQUIN (*)] 500 mg PO DAILY AT 10AM #3 tab 09/04/16 Medical Decision Making ED Course/Re-evaluation: This patient presents with multiple concerns, but the primary reason for her visit today is because of pain in her left foot. Tylenol and a Lidoderm patch given for foot pain. X-ray results discussed with the patient. She will be placed in a [facility] boot. She will follow up with her orthopedic surgeon as an outpatient. She also has a possible urinary tract infection. Keflex prescribed and a urine culture was sent. Her hematocrit is 23.7, similar to her hematocrit when she was discharged from the hospital in May 2016. She is symptomatic, with fatigue and generalized weakness. She is requesting a blood transfusion, which is certainly reasonable given her severe anemia. 1 unit of packed red blood cells were ordered. No evidence of hemodynamic instability. The hospitalist service was consulted for admission. Differential Diagnosis: Includes though not limited to pyelonephritis, kidney stone, dislocation, severe ongoing hemorrhage, hypotension. - Data Points Laboratory Results: Laboratory Results 09/03/16 13:55 Microbiology Results: MICROBIOLOGY 09/03/16 12:45 Urine,Clean Catch Urine Culture - Final Escherichia Coli Medications Given: Discontinued Medications Acetaminophen (Tylenol) 650 mg PO EDNOW ONE Stop: 09/03/16 13:58 Last Admin: 09/03/16 14:02 Dose: 650 mg Acetaminophen (Tylenol) 650 mg PO Q4HRS PRN PRN Reason: Pain, Mild/Fever, Can Take PO Stop: 03/02/17 16:26 Last Admin: 09/04/16 08:38 Dose: 650 mg Artificial Tears (Natural Balance Tears) 1 drop EACHEYE Q2 PRN PRN Reason: Dry Irritated Eyes Stop: 03/02/17 20:20 Last Admin: 09/03/16 21:32 Dose: 1 drop Baclofen (Baclofen) 10 mg PO TID MICHELLE Stop: 03/02/17 21:59 Last Admin: 09/04/16 08:38 Dose: 10 mg Clonazepam (Klonopin) 0.5 mg PO DAILY MICHELLE Stop: 03/03/17 08:59 Last Admin: 09/04/16 08:39 Dose: 0.5 mg Escitalopram Oxalate (Lexapro) 20 mg PO DAILY MICHELLE Stop: 03/03/17 08:59 Last Admin: 09/04/16 08:38 Dose: 20 mg HCTZ/Losartan Potassium (Hyzaar 50/12.5) 2 tab PO DAILY MICHELLE Stop: 03/03/17 08:59 Last Admin: 09/04/16 08:40 Dose: 2 tab Ferric Sodium Gluconate Complex 125 mg/ Sodium Chloride 110 mls @ 110 mls/hr IV DAILY MICHELLE Stop: 03/02/17 16:29 Last Admin: 09/04/16 08:38 Dose: 110 mls Levofloxacin (Levaquin) 750 mg PO EDNOW ONE PRN Reason: Protocol Stop: 09/03/16 15:02 Last Admin: 09/03/16 15:17 Dose: 750 mg Levofloxacin (Levaquin) 500 mg PO DAILY AT 10AM MICHELLE PRN Reason: Protocol Stop: 10/04/16 09:59 Last Admin: 09/04/16 08:40 Dose: 500 mg Lidocaine (Lidoderm 5%) 1 ea TD EDNOW ONE Stop: 09/04/16 13:13 Last Admin: 09/03/16 13:33 Dose: 1 ea Oxycodone HCl (Oxycodone Ir) 5 mg PO TID PRN PRN Reason: Pain, Breakthrough Stop: 09/13/16 16:28 Last Admin: 09/04/16 08:40 Dose: 5 mg Pantoprazole Sodium (Protonix) 40 mg PO DAILY [facility] Stop: 03/03/17 08:59 Last Admin: 09/04/16 08:39 Dose: 40 mg Phenazopyridine HCl (Pyridium) 200 mg PO PC [facility] Stop: 03/03/17 08:59 Last Admin: 09/04/16 08:38 Dose: 200 mg Pregabalin (Lyrica) 75 mg PO BID PRN PRN Reason: SHINGLES Stop: 03/02/17 16:28 Last Admin: 09/04/16 08:39 Dose: 75 mg Topiramate (Topamax) 100 mg PO BID [facility] Stop: 03/02/17 20:59 Last Admin: 09/04/16 08:39 Dose: 100 mg Departure - Departure Disposition: Home, Routine, Self-Care Clinical Impression: Severe anemia Metatarsal fracture Qualifiers: Encounter type: initial encounter Metatarsal bone: fifth Fracture type: closed Fracture alignment: nondisplaced Laterality: left Qualified Code(s): S92.355A - Nondisplaced fracture of fifth metatarsal bone, left foot, initial encounter for closed fracture Urinary tract infection Qualifiers: Urinary tract infection type: acute cystitis Hematuria presence: without hematuria Qualified Code(s): N30.00 - Acute cystitis without hematuria Condition: Fair
[2016-09-03] MEDS ORDERED: LIDOCAINE 5% 1 EA PATCH TD ONE (13:28)
[2016-09-03] MEDS ORDERED: ACETAMINOPHEN 325 MG TAB PO ONE (13:57)
[2016-09-03 14:07] LABS: % IMMATURE GRANULYOCYTES 0.5 % (0.0-1.1); ABSOLUTE IMMATURE GRANULOCYTES 0.04 10^3/uL (0.00-0.10); ADD DIFF? NO; ADD MORPH? YES; ADD SCAN? NO; ATYPICAL LYMPHOCYTE FLAG 40 (0-99); FRAGMENT RBC FLAG 40 (0-99); HEMATOCRIT 23.7 % (38.0-47.0); LEFT SHIFT FLG 0 (0-99); LIPEMIA HEMOLYSIS FLAG 70 (0-99); MEAN CELL HEMOGLOBIN CONCENTR. 29.1 g/dL (32.4-36.7); MEAN CELL VOLUME 75.5 fL (81.5-99.8); MEAN PLATELET VOLUME 9.9 fL (8.7-11.7); PLATELET CLUMPS FLAG 20 (0-99); PLATELET COUNT 358 10^3/uL (150-400); RED BLOOD CELL COUNT 3.14 10^6/uL (4.18-5.33); RED CELL DISTRIBUTION WIDTH 18.1 % (11.5-15.2)
[2016-09-03 14:12] LABS: HEMOGLOBIN 6.9 g/dL (12.6-16.3)
[2016-09-03 14:53] LABS: HYPOCHROMIA 2+; MICROCYTES 1+
[2016-09-03 14:54] LABS: PLATELET ESTIMATE ADEQUATE (ADEQ); POLYCHROMASIA 1+
[2016-09-03] MEDS ORDERED: ACETAMINOPHEN 325 MG TAB PO PRN (16:27)
[2016-09-03] MEDS ORDERED: ONDANSETRON 4 MG/2 ML VIAL IVP PRN (16:27)
[2016-09-03] MEDS ORDERED: ONDANSETRON DISINTEGRATING 4 MG TAB PO PRN (16:27)
[2016-09-03] MEDS ORDERED: hydrOXYzine HCL 25 MG TAB PO PRN (16:29)
--- NOTE | 2016-09-03 16:58 | GHP ---
[f rep st] HISTORY AND PHYSICAL DATE OF ADMISSION: 09/03/2016 CHIEF COMPLAINT: Worsening anemia, possible urinary tract infection, left foot pain. HISTORY OF PRESENT ILLNESS: This is a 56-year-old female with a history of chronic iron deficiency anemia. She was admitted in May of this year for syncope and anemia. At that time, she underwe nt EGD which showed Ej erosions and esophagitis. She has had multiple workups in the past in 2 011 and in 2014, which included a capsule endoscopy in 2010 and EGD and colonoscopy in 2014. She says she has been feeling tired, consistent with previous anemia. She had 1 episode of melena a week ago. She has some abdominal discomfort, it feels like food does not get through into her smal l intestines. The patient is also complaining of dysuria and thinks she has urinary tract infection. She has had some chills and back pain in regard to this. Patient also has left foot pain. She has a history of Hfhiymf-Nqedr-Lihua and some previous broken bones in her foot. She twisted her foot and broke her 5th toe. REVIEW OF SYSTEMS: A 10-point review of systems was obtained and was otherwise negative. PAST MEDICAL HISTORY: 1. Chronic anemia with workup as above including EGD, capsule endoscopy and colonoscopy with last E GD in May showing esophageal stenosis, status post dilation, with a large hiatal hernia and Came billy erosions, and possibly eosinophilic esophagitis but biopsy did not confirm that. 2. History of esophageal stricture, status post several dilations. 3. History of peptic ulcer disease and alcohol-induced gastritis. 4. History of alcoholism 8-9 years ago. 5. Wxcaqcx-Uonry-Wtjgg. 6. Chronic pain. 7. IBS. 8. Depression and anxiety. PTSD. PAST SURGICAL HISTORY: 1. Bilateral mastectomies prophylactically. 2. Breast reduction surgery bilaterally. 3. Gallstone cholecystitis. 4. Ankle surgery on the right. 5. Several esophageal dilations. SOCIAL HISTORY: Lives in [place]. Quit alcohol 8-9 years ago. Mother in February 2016 but the patient talks as if it was just recently. She is quite tearful about it. FAMILY HISTORY: Mother of aplastic anemia. Sister of breast cancer. Another sister as well. PHYSICAL EXAM: VITAL SIGNS: Afebrile, blood pressure is 131/73, heart rate 102, oxygen saturation 99% on room air. GENERAL: The patient is well developed, in no apparent distress although she is s omewhat tearful during the interview. HEENT: Nonicteric sclerae. Extraocular movements intact. M oist mucous membranes. NECK: Supple. No thyromegaly. LUNGS: Good effort. Clear to auscultation bilaterally. CARDIOVASCULAR: Regular rate and rhythm. No murmurs, gallops. ABDOMEN: Positive b owel sounds. Slightly distended, soft. Mild epigastric tenderness. No rebound or guarding. EXTRE MITIES: No clubbing, cyanosis, or edema. NEUROLOGIC: Alert and oriented x3. Moving all 4 extremi ties equally. PSYCH: Normal mood and affect. LABS: White count 8, hemoglobin is 6.9 with an MCV of 75; her hemoglobin on discharge was 7.2. Sod ium 141, potassium 3.6, BUN is 14, creatinine 0.6. UA does suggest urinary tract infection. Foot x -ray shows left 5th toe fracture, metatarsal. ASSESSMENT: This is a 56-year-old female with a history of chronic anemia, presenting with symptoms of anemia, although her hemoglobin is not much changed from previous, among other complaints. 1. Chronic microcytic anemia. We will check iron studies. She is getting a unit of blood. We dontae l give her a couple doses of IV iron for her iron deficiency, which I am sure she has. She has had several workups in the past including capsule endoscopy, EGD and colonoscopy. At this point, I am n ot sure repeating these studies would be of benefit. She probably should be on oral iron. I am sweta ng to hold off on calling Gastroenterology at this time. I think that we can give her a unit of blo od and she can follow up with them outpatient. 2. Urinary tract infection. We will continue Levaquin, it has been given in the emergency departme nt. 3. Left foot fracture. She will need outpatient followup. 4. Anxiety, depression. Continue medications. 5. Hypertension. We will continue her medicines. 6. History of shingles on the scalp with a postherpetic neuralgia. We will continue Lyrica and Top amax. 7. Admission: The patient will be admitted under observation status. Case discussed with ER physi chito. Old records reviewed and summarized in the HPI. /[id number]/MODL
[2016-09-03 17:43] LABS: FERRITIN - BCH 5.4 ng/mL (6.2-264.0)
[2016-09-03 17:53] LABS: % SATURATION 4 % (20-55); TOTAL IRON BINDING CAPACITY 475 ug/dL (260-490)
[2016-09-03] MEDS: PREGABALIN 75 MG CAP PO PRN (18:03)
[2016-09-03] MEDS: oxyCODONE IR 5 MG TAB PO PRN ×2 (18:03→22:14)
[2016-09-03] MEDS: SODIUM FERRIC GLUCONAT/SUCROSE 125 MG in NS 100 ML IV SCH (19:22)
[2016-09-03] MEDS ORDERED: TEARS/DEXTRAN 70/HYPROMELLOSE 15 ML OPHT.BTL EACHEYE PRN (20:21)
[2016-09-03] MEDS: BACLOFEN 10 MG TAB PO SCH (21:32)
[2016-09-03] MEDS: TOPIRAMATE 100 MG TAB PO SCH (22:19)
[2016-09-04 04:35] LABS: % IMMATURE GRANULYOCYTES 0.5 % (0.0-1.1); ABSOLUTE IMMATURE GRANULOCYTES 0.03 10^3/uL (0.00-0.10); ADD DIFF? NO; ADD MORPH? NO; ADD SCAN? NO; ATYPICAL LYMPHOCYTE FLAG 0 (0-99); FRAGMENT RBC FLAG 20 (0-99); HEMATOCRIT 25.5 % (38.0-47.0); HEMOGLOBIN 7.8 g/dL (12.6-16.3); LEFT SHIFT FLG 0 (0-99); LIPEMIA HEMOLYSIS FLAG 80 (0-99); MEAN CELL HEMOGLOBIN 22.7 pg (27.9-34.1); MEAN CELL HEMOGLOBIN CONCENTR. 30.6 g/dL (32.4-36.7); MEAN CELL VOLUME 74.1 fL (81.5-99.8); MEAN PLATELET VOLUME 10.1 fL (8.7-11.7); PLATELET CLUMPS FLAG 0 (0-99); PLATELET COUNT 346 10^3/uL (150-400); RED BLOOD CELL COUNT 3.44 10^6/uL (4.18-5.33); RED CELL DISTRIBUTION WIDTH 17.5 % (11.5-15.2)
[2016-09-04 04:59] LABS: ANION GAP 9 mEq/L (8-16); CALCIUM 9.2 mg/dL (8.5-10.4); CARBON DIOXIDE 22 mEq/l (22-31); CHLORIDE 109 mEq/L (97-110); CREATININE 0.7 mg/dL (0.6-1.0); GLOMERULAR FILTRATION RATE > 60; GLUCOSE 88 mg/dL (70-100); POTASSIUM 4.3 mEq/L (3.5-5.2); SODIUM 140 mEq/L (134-144)
[2016-09-04 08:09] VITALS: BP 105/64; PULSE 80; RESP 19; TEMP 98.7; O2SAT 90
[2016-09-04] MEDS: BACLOFEN 10 MG TAB PO SCH (08:38)
[2016-09-04] MEDS: SODIUM FERRIC GLUCONAT/SUCROSE 125 MG in NS 100 ML IV SCH (08:38)
[2016-09-04] MEDS: TOPIRAMATE 100 MG TAB PO SCH (08:39)
[2016-09-04] MEDS: PREGABALIN 75 MG CAP PO PRN (08:39)
[2016-09-04] MEDS: oxyCODONE IR 5 MG TAB PO PRN (08:40)
[2016-09-04] MEDS ORDERED: PANTOPRAZOLE SODIUM 40 MG TAB PO SCH (09:00)
[2016-09-04] MEDS ORDERED: ESCITALOPRAM OXALATE 10 MG TAB PO SCH (09:00)
[2016-09-04] MEDS ORDERED: PHENAZOPYRIDINE HCL 200 MG TAB PO SCH (09:00)
[2016-09-04] MEDS ORDERED: NON-FORMULARY NEW DRUG (Escitalopram Oxalate [Lexapro] 20 MG) PO SCH (09:00)
[2016-09-04] MEDS ORDERED: NON-FORMULARY NEW DRUG (Losartan/Hydrochlorothiazide [Losartan-Hctz 100-25 Mg Tab] 1 EACH) PO SCH (09:00)
[2016-09-04] MEDS ORDERED: LOSARTAN/HCTZ 50/12.5 1 TAB PO SCH (09:00)
[2016-09-04] MEDS ORDERED: clonazePAM 0.5 MG TAB PO SCH (09:00)
[2016-09-04] MEDS ORDERED: LIDOCAINE 5% 1 EA PATCH TD ONE (13:12)
--- NOTE | 2016-09-05 04:17 | GDS ---
[f rep st] DISCHARGE SUMMARY DISCHARGE DIAGNOSES: 1. Iron-deficiency anemia. 2. Slow persistent gastrointestinal bleed. 3. Urinary tract infection. 4. Left foot fracture. 5. Postherpetic neuralgia. 6. Anxiety and depression. HISTORY: The patient is a 56-year-old female with a chronic iron-deficiency anemia. She most recen tly had an EGD which showed Ej erosions and esophagitis. She has also previously had colonosco py and capsule endoscopy. She had an episode of melena 1 week ago. She presented with fatigue cons istent with her previous anemia. She was found to have a hemoglobin of 6.9 and a hematocrit of 23.7 . She was admitted under observation. She was given a unit of blood. It was not felt that recurre nt endoscopy was needed at this time, and she can follow up as an outpatient. I did increase her pr oton pump inhibitor to twice a day. Patient presented with symptoms of urinary tract infection. Urinalysis was positive. She was start ed on Levaquin. Urine culture is pending at discharge, and she has followup already scheduled with her primary care doctor tomorrow. She also complains of left foot pain and has a history of Crdthfh-Wieub-Tejzj. X-ray did show a new acute fracture. In the emergency room, she was put in a splint and recommended for outpatient orth opedic surgery followup. Regarding her iron-deficiency anemia, she is intolerant of oral iron. She was given 2 doses of IV i billy as an inpatient. She has an established outpatient relationship with Dr. Shah, and it is rec ommended she follow up with him and consider IV iron as an outpatient to prevent future similar admi ssions. DISCHARGE MEDICATIONS: Please see computer record for full detailed list. New medications: Levaqu in 500 mg p.o. daily for 3 more days. Protonix increased to 40 mg p.o. b.i.d. ADDITIONAL DISCHARGE INSTRUCTIONS: 1. Follow up with Dr. Shah regarding iron-deficiency anemia and consideration for outpatient IV iron infusions. 2. Outpatient orthopedic surgery consultation for foot fracture. 3. Followup with primary care is already scheduled in 24 hours. Patient was seen and examined by me on the day of discharge. /[id number]/MODL
== END 2016-09-04 12:42 | disposition home or self-care (01) ==
LOC: F2W 17:19
PROVIDERS: ADMIT Internal Medicine; ATTEND Internal Medicine
PROC: 2W3TXYZ Immobilization of Left Foot using Other Device (ICD-10-PCS; principal; 2016-09-03)
PROC: 30233N1 Transfusion of Nonautologous Red Blood Cells into Peripheral Vein, Percutaneous Approach (ICD-10-PCS; principal; 2016-09-03)
DX: K92.2 Gastrointestinal hemorrhage, unspecified (principal); D50.9 Iron deficiency anemia, unspecified; N39.0 Urinary tract infection, site not specified; S92.355A Nondisplaced fracture of fifth metatarsal bone, left foot, initial encounter for closed fracture; B02.29 Other postherpetic nervous system involvement; I10 Essential (primary) hypertension; X58.XXXA Exposure to other specified factors, initial encounter; Y92.013 Bedroom of single-family (private) house as the place of occurrence of the external cause
CPT/HCPCS: 73630; 97161; G0378; P9016; J2916; L4386

== ENCOUNTER 2016-09-26 12:30 | Inpatient (IN) | payer MEDICAID ==
--- NOTE | 2016-09-26 12:56 | EDPHY ---
H & P Time Seen by Provider: 09/26/16 12:49 HPI/ROS: CHIEF COMPLAINT: Tarry stools HISTORY OF PRESENT ILLNESS: The patient is a 56-year-old female with h/o recurrent GI bleed secondary to esophagitis and Ej erosions presenting with 2 days of black, tarry stools. She has associated moderate abdominal pain and generalized weakness. Feels that she needs a blood transfusion. She saw her PCP yesterday and had Hemoccult and blood work done. The patient reports she vomited after eating today. No associated hematemesis. She states she is concerned she has cancer, though she has never had a diagnosis of cancer. REVIEW OF SYSTEMS: A comprehensive 10 point review of systems is otherwise negative aside from elements mentioned in the history of present illness. Past Medical/Surgical History: Chronic anemia, Esophageal stricture, Peptic ulcer disease, Alcoholism-quit 8-9 years ago, IBS, Chronic pain, Depression, Anxiety. Social History: Lives in [place]. Quit alcohol 8-9 years ago. Smoking Status: Never smoked Physical Exam: General Appearance: Alert, tearful Eyes: Pupils equal and round, conjunctival pallor ENT, Mouth: Mucous membranes moist Neck: Normal inspection Respiratory: Lungs are clear to auscultation Cardiovascular: Regular rate and rhythm Gastrointestinal: mild epigastric tenderness Rectal: Black stool Neurological: A&O, nonfocal exam Skin: Warm and dry, no rash Extremities: Nontender, no pedal edema Psychiatric: Mood and affect normal Constitutional: Initial Vital Signs Temperature (C) 37.4 C 09/26/16 13:21 Heart Rate 99 09/26/16 13:21 Respiratory Rate 16 09/26/16 13:21 Blood Pressure 100/85 H 09/26/16 13:21 O2 Sat (%) 95 09/26/16 13:21 O2 Delivery Mode Room Air Allergies/Adverse Reactions: Penicillins Allergy (Severe, Verified 09/03/16 12:29) Anaphylaxis meperidine HCl [From Demerol] Allergy (Mild, Verified 09/03/16 12:29) SITE RASH atenolol Allergy (Verified 09/03/16 12:29) hydrocodone bitartrate [From Lortab] Allergy (Verified 09/03/16 12:29) morphine Allergy (Verified 09/03/16 12:29) venom-honey bee [bee venom (honey bee)] Allergy (Verified 09/03/16 12:29) Home Medications: Medication Instructions Recorded Baclofen [Baclofen 10 mg (*)] 30 mg PO TID 09/03/16 Escitalopram Oxalate [Lexapro] 20 mg PO DAILY 09/03/16 Losartan/Hydrochlorothiazide 1 each PO DAILY 09/03/16 [Losartan-Hctz 100-25 mg Tab] Pregabalin [Lyrica 75mg (*)] 75 mg PO BID PRN 09/03/16 Topiramate [Topamax 100MG (*)] 200 mg PO DAILY 09/03/16 clonazePAM [Klonopin (*)] 0.5 mg PO DAILY 09/03/16 hydrOXYzine HCL [Vistaril 25MG] 25 mg PO QID PRN 09/03/16 oxyCODONE IR [Oxycodone Ir (*)] 5 mg PO TID PRN 09/03/16 Pantoprazole Sodium [Protonix 40mg 40 mg PO BID #60 tab 09/04/16 (*)] Medical Decision Making ED Course/Re-evaluation: The patient is a 56-year-old female with history of peptic ulcer disease, who presents with black tarry stools for the past 2 days. Patient has associated abdominal pain with one episode of emesis. Rectal exam shows black stool. The patient was admitted 09/03/16 for chronic anemia. Plan for Hemoccult, BMP, and CBC. IV was established, the patient received 40mg Protonix and 1L normal saline. Lab work is consistent with severe anemia. Hgb 7.2, Hct 23.6 Stool occult is positive for blood. Findings are consistent with upper GI bleed. Hematocrit is similar to prior recent hematocrits. The patient feels quite weak and feels that she needs a blood transfusion. 1 unit packed red blood cells ordered. 1:45 p.m.: The hospitalist service was consulted for admission. The patient will be admitted to Dr. Sierra. Differential Diagnosis: Differential diagnosis includes does not limited to peptic ulcer disease, esophageal varices, diverticulitis, AVM. - Data Points Laboratory Results: Laboratory Results 09/26/16 13:25 09/26/16 13:25 Medications Given: Discontinued Medications Sodium Chloride (Ns) 1,000 mls @ 0 mls/hr IV ONCE ONE PRN Reason: Wide Open Stop: 09/26/16 13:01 Last Admin: 09/26/16 13:28 Dose: 1,000 mls Pantoprazole Sodium (Protonix) 40 mg IVP EDNOW ONE Stop: 09/26/16 13:01 Last Admin: 09/26/16 13:41 Dose: 40 mg Departure - Departure Disposition: [facility] Inpatient Acute Clinical Impression: Upper GI bleed Condition: Fair Report Scribed for: Angie Mcelroy Report Scribed by: Althea Rodrigues Date of Report: 09/26/16 Time of Report: 12:52 Physician Review and Approval Statement: 09/26/16 12:52 Portions of this note were transcribed by a medical sales. I personally performed the history, physical exam, and medical decision-making; and confirmed the accuracy of the information in the transcribed note.
[2016-09-26] MEDS ORDERED: NS 1,000 ML IV ONE (13:00)
[2016-09-26] MEDS ORDERED: PANTOPRAZOLE SODIUM 40 MG VIAL IVP ONE (13:00)
[2016-09-26 13:34] LABS: % IMMATURE GRANULYOCYTES 0.4 % (0.0-1.1); ABSOLUTE IMMATURE GRANULOCYTES 0.02 10^3/uL (0.00-0.10); ADD DIFF? NO; ADD MORPH? YES; ADD SCAN? NO; ATYPICAL LYMPHOCYTE FLAG 20 (0-99); FRAGMENT RBC FLAG 40 (0-99); HEMATOCRIT 23.6 % (38.0-47.0); HEMOGLOBIN 7.2 g/dL (12.6-16.3); LEFT SHIFT FLG 0 (0-99); LIPEMIA HEMOLYSIS FLAG 80 (0-99); MEAN CELL HEMOGLOBIN 23.8 pg (27.9-34.1); MEAN CELL HEMOGLOBIN CONCENTR. 30.5 g/dL (32.4-36.7); MEAN CELL VOLUME 77.9 fL (81.5-99.8); MEAN PLATELET VOLUME 9.8 fL (8.7-11.7); PLATELET CLUMPS FLAG 0 (0-99); PLATELET COUNT 373 10^3/uL (150-400); RED BLOOD CELL COUNT 3.03 10^6/uL (4.18-5.33)
[2016-09-26 13:35] LABS: RED CELL DISTRIBUTION WIDTH 21.7 % (11.5-15.2)
[2016-09-26 13:44] LABS: ANION GAP 9 mEq/L (8-16); CALCIUM 8.9 mg/dL (8.5-10.4); CARBON DIOXIDE 21 mEq/l (22-31); CHLORIDE 110 mEq/L (97-110); CREATININE 0.7 mg/dL (0.6-1.0); GLOMERULAR FILTRATION RATE > 60; GLUCOSE 86 mg/dL (70-100); POTASSIUM 3.9 mEq/L (3.5-5.2); SODIUM 140 mEq/L (134-144)
[2016-09-26 14:35] LABS: ELLIPTOCYTES 1+; HYPOCHROMIA 2+; KERATOCYTES 1+; MICROCYTES 2+; PLATELET ESTIMATE ADEQUATE (ADEQ)
[2016-09-26] MEDS ORDERED: HYDROmorphONE/DILAUDID 1 MG/ML SYR ONE (16:12)
[2016-09-26] MEDS ORDERED: HYDROmorphONE/DILAUDID 2 MG TAB PO PRN (16:20)
[2016-09-26] MEDS ORDERED: ONDANSETRON 4 MG/2 ML VIAL IVP PRN (16:22)
[2016-09-26] MEDS ORDERED: ONDANSETRON DISINTEGRATING 4 MG TAB PO PRN ×2 (16:22→16:28)
[2016-09-26] MEDS ORDERED: PROMETHAZINE HCL 25 MG TAB PO PRN (16:30)
[2016-09-26] MEDS: HYOSCYAMINE SULFATE 0.125 MG TAB PO PRN ×2 (16:58→22:31)
[2016-09-26] MEDS ORDERED: hydrOXYzine HCL 25 MG TAB PO PRN (17:22)
[2016-09-26] MEDS ORDERED: oxyCODONE IR 5 MG TAB PO PRN (17:22)
[2016-09-26 17:28] LABS: INR 1.03 (0.83-1.16); PROTIME(PATIENT) 13.4 SEC (12.0-15.0)
[2016-09-26 17:29] LABS: APTT 27.2 SEC (23.0-38.0)
--- NOTE | 2016-09-26 18:15 | GHP ---
[f rep st] HISTORY AND PHYSICAL DATE OF ADMISSION: 09/26/2016 CHIEF COMPLAINT: Abdominal pain and dark-colored diarrhea. HISTORY OF PRESENT ILLNESS: This is a 56-year-old female with history of chronic anemia that has be en worked up extensively with EGD, capsule endoscopy, and colonoscopy, where she has been found to h ave a large hiatal hernia and Ej erosions as well as possible eosinophilic esophagitis, and pre sents to the emergency department today with abdominal pain and dark-colored diarrhea. The patient states that on Saturday afternoon, she had multiple episodes of what she describes as dark -colored diarrhea. This was associated with severe 10/10 diffuse cramping over her abdomen. She fulton s also had some nonbloody emesis. Since the onset on Saturday, she has continued to have similar prob lems ever since. She was seen by her PCP on Saturday where reportedly her hemoglobin was above 8. Sh e denies any fevers or chills. She has been compliant with her PPI medication. PAST MEDICAL HISTORY: 1. Chronic anemia as detailed in the HPI. 2. Esophageal stricture, status post several dilations. 3. Peptic ulcer disease and alcohol induced gastritis. 4. Alcoholism, in remission. 5. Wgreuve-Fthnp-Xwtqb syndrome. 6. Chronic abdominal pain. 7. IBS. 8. Depression and anxiety. 9. PTSD. PAST SURGICAL HISTORY: 1. Bilateral mastectomy. 2. Breast reduction surgery bilaterally. 3. Cholecystectomy for cholecystitis. 4. Right ankle surgery. 5. Multiple esophageal dilations. HOME MEDICATIONS: Were reviewed. Refer to navabi for details. ALLERGIES: Were reviewed. Refer to navabi for details. SOCIAL HISTORY: She lives in [place]. She quit drinking about 8 or 9 years ago. Her mother in February of 2016. Denies any tobacco or illicit drug use. FAMILY HISTORY: Significant for aplastic anemia in her mother as well as 2 sisters with breast canc er. REVIEW OF SYSTEMS: A comprehensive 10-point review of systems was done and was negative except for as mentioned in the HPI. PHYSICAL EXAMINATION: VITAL SIGNS: Blood pressure 113/78, pulse 78, respiratory rate 18, O2 satura tion 97% on room air, temperature afebrile. GENERAL: No acute distress. HEENT: Head: Normocepha lic, atraumatic. Eyes are PERRLA. Sclerae anicteric. Mouth: Moist mucous membranes. NECK: Supp le. No lymphadenopathy. CARDIOVASCULAR: S1-S2. No murmurs, rubs, clicks, gallops, or JVD. No lo wer extremity edema. PULMONARY: Lungs are clear. No wheezes, rales, or rhonchi. ABDOMEN: Soft, mildly distended. Normoactive bowel sounds. There is no guarding or rebound tenderness. EXTREMITI ES: No clubbing or cyanosis. Left foot in a boot. NEUROLOGIC: Cranial nerves 2-12 grossly intact . No focal motor or sensory deficits. SKIN: Clear. No rashes, however, the nurse reported after the time of my exam that she has some scabbed over vesicles over her scalp that once again I did not notice. DIAGNOSTICS: WBC is 4.89, hemoglobin 7.2, hematocrit 23.6, platelets 373. 2+ hypochromasia, 2+ anna rocytic cells, 1+ elliptocytes, 1+ keratocytes. Coags are pending. Sodium 140, potassium 3.9, chlo ride 110, CO2 of 21, BUN 27, creatinine 0.7, glucose 86. Stool occult blood was positive. H pylori antibody was negative in May of 2016. Discharge summary dated 09/04/2016, was reviewed at which time she was recommended to follow up with Dr. Shah regarding iron deficiency anemia. ASSESSMENT AND PLAN: This is a 56-year-old female with history of chronic iron deficiency anemia wi th Ej ulcers seen on esophagogastroduodenoscopy 05/16/2016, presenting with: 1. Abdominal pain with heme-positive stools. Plan: The patient will be placed on observation wher e we will continue her b.i.d. Protonix. We will trial Levsin for abdominal pain and continue both I V and p.o. opiates as needed. I discussed the case with Dr. Aldo Zimmer, who is personal banker for GI, w ho asked to be notified in the morning if she continues to have signs of bleeding at which time she would likely require a repeat endoscopy. The patient has been typed and screened, and we will trans fuse per protocol. We will repeat a CBC later on tonight. We will need to follow up coags. 2. Left foot fracture. Continue boot and outpatient followup with Ortho. 3. Reported healing herpes zoster on the scalp. Plan: Once again, I did not notice this on my exa m and was notified about this by the nurse after I had left the hospital. The patient will be start ed on contact isolation per hospital protocol if indicated. 4. Lovenox for deep venous thrombosis prophylaxis, contraindicated in light of possible bleeding. We will order SCDs. /[id number]/MODL
[2016-09-26] MEDS: HYDROmorphONE/DILAUDID 1 MG/ML SYR IVP PRN ×2 (18:49→22:30)
[2016-09-26] MEDS: BACLOFEN 10 MG TAB PO SCH (22:31)
[2016-09-26] MEDS: PREGABALIN 75 MG CAP PO PRN (22:31)
[2016-09-26] MEDS: oxyCODONE IR 5 MG TAB PO PRN (22:32)
[2016-09-26] MEDS: PANTOPRAZOLE SODIUM 40 MG TAB PO SCH (22:33)
[2016-09-26 22:48] LABS: HEMATOCRIT 22.2 % (38.0-47.0)
[2016-09-26 22:49] LABS: HEMOGLOBIN 6.6 g/dL (12.6-16.3)
[2016-09-27] MEDS: oxyCODONE IR 5 MG TAB PO PRN ×2 (03:38→08:56)
[2016-09-27] MEDS: HYOSCYAMINE SULFATE 0.125 MG TAB PO PRN ×3 (03:38→22:18)
[2016-09-27 06:11] LABS: % IMMATURE GRANULYOCYTES 0.5 % (0.0-1.1); ABSOLUTE IMMATURE GRANULOCYTES 0.02 10^3/uL (0.00-0.10); ADD DIFF? NO; ADD MORPH? YES; ADD SCAN? NO; ATYPICAL LYMPHOCYTE FLAG 40 (0-99); FRAGMENT RBC FLAG 20 (0-99); HEMATOCRIT 23.8 % (38.0-47.0); HEMOGLOBIN 7.3 g/dL (12.6-16.3); LEFT SHIFT FLG 0 (0-99); LIPEMIA HEMOLYSIS FLAG 80 (0-99); MEAN CELL HEMOGLOBIN 25.2 pg (27.9-34.1); MEAN CELL HEMOGLOBIN CONCENTR. 30.7 g/dL (32.4-36.7); MEAN CELL VOLUME 82.1 fL (81.5-99.8); MEAN PLATELET VOLUME 9.7 fL (8.7-11.7); PLATELET CLUMPS FLAG 10 (0-99); PLATELET COUNT 273 10^3/uL (150-400)
[2016-09-27] MEDS: HYDROmorphONE/DILAUDID 1 MG/ML SYR IVP PRN ×4 (06:11→22:16)
[2016-09-27 06:12] LABS: RED CELL DISTRIBUTION WIDTH 21.2 % (11.5-15.2)
[2016-09-27 06:33] LABS: ANION GAP 7 mEq/L (8-16); CALCIUM 8.3 mg/dL (8.5-10.4); CARBON DIOXIDE 23 mEq/l (22-31); CHLORIDE 111 mEq/L (97-110); CREATININE 0.7 mg/dL (0.6-1.0); GLOMERULAR FILTRATION RATE > 60; GLUCOSE 82 mg/dL (70-100); POTASSIUM 4.1 mEq/L (3.5-5.2); SODIUM 141 mEq/L (134-144)
[2016-09-27 06:38] LABS: ELLIPTOCYTES 1+; HYPOCHROMIA 2+; MICROCYTES 2+; PLATELET ESTIMATE ADEQUATE (ADEQ); POLYCHROMASIA 1+
[2016-09-27] MEDS: LOSARTAN/HCTZ 50/12.5 1 TAB PO SCH (08:40)
[2016-09-27] MEDS: ESCITALOPRAM OXALATE 10 MG TAB PO SCH (08:48)
[2016-09-27] MEDS: clonazePAM 0.5 MG TAB PO SCH (08:52)
[2016-09-27] MEDS: PANTOPRAZOLE SODIUM 40 MG TAB PO SCH ×2 (08:53→22:19)
[2016-09-27] MEDS: BACLOFEN 10 MG TAB PO SCH ×3 (08:53→22:19)
[2016-09-27] MEDS: TOPIRAMATE 100 MG TAB PO SCH (10:28)
--- NOTE | 2016-09-27 10:31 | HOSPPROG ---
Hospitalist Progress Note Assessment/Plan: 56 yo F w iron deficient anemia anemia dark diarrhea: concerning for ongoing blood loss in setting of known HH w zuleyma lesions last scope 2 months ago no NSAIDS or alcohol i think repeat egd indicated acute on chronic blood loss anemia: give add'l unit packed cells now zoster: lesions not seen continue contact precaustions proph: scd's dispo: inpt Subjective: case discussed w dr carter. continued dark diarrhea. no hematemesis. minimal bump from 1 unit of packed cellls Objective: Vital Signs Temp Pulse Resp BP Pulse Ox 36.8 C 74 18 104/70 91 L 09/27/16 08:00 09/27/16 08:00 09/27/16 08:00 09/27/16 08:40 09/27/16 08:00 Laboratory Results 09/27/16 05:40 09/27/16 05:40 09/26/16 09/27/16 09/28/16 05:59 05:59 05:59 Intake Total 3000 Output Total 450 Balance 2550 PT 13.4 SEC (12.0-15.0) 09/26/16 17:07 INR 1.03 (0.83-1.16) 09/26/16 17:07 - Physical Exam Constitutional: no apparent distress, appears nourished Eyes: PERRL, anicteric sclera Ears, Nose, Mouth, Throat: moist mucous membranes, hearing normal Cardiovascular: regular rate and rhythym, no murmur, rub, or gallop Respiratory: no respiratory distress, no rales or rhonchi Gastrointestinal: normoactive bowel sounds, soft, non-tender abdomen Genitourinary: No craft in urethra Skin: warm, normal color Musculoskeletal: full muscle strength Neurologic: AAOx3, sensation intact bilaterally ICD10 Worksheet Patient Problems: Problems Problem Status Onset Upper GI bleed Acute Alcohol abuse Active Esophagitis Active Gastritis Active Gastrointestinal hemorrhage Active Anemia Acute Metatarsal fracture Acute Pre-syncope Acute Severe anemia Acute Urinary tract infection Acute
[2016-09-27] MEDS ORDERED: LIDOCAINE 2% 5 ML SDV ONE (16:35)
[2016-09-27] MEDS ORDERED: PROPOFOL 200 MG/20 ML VIAL ONE (16:35)
[2016-09-27] MEDS ORDERED: MIDAZOLAM 2 MG/2 ML VIAL ONE (16:39)
--- NOTE | 2016-09-27 17:01 | SOAPPROG ---
SOAP Progress Note Assessment/Plan: Assessment:EGD requested for melena and anemia. Patient has h/o recurrent UGI bleeds suspected to be due to Ej ulcers in her large hiatal hernia. Hs has previous negative colonoscopy and capsule endoscopy performed by GI of the [facility]. EGD shows an 8 cm hiatal hernia will non bleeding Ej ulcerations. The remainder of the exam was negative. Plan:Transfusion as per Hospitalist team. Consideration should be given to Surgical repair of hiatal hernia. 09/27/16 16:59 Objective: Vital Signs Temp Pulse Resp BP Pulse Ox 37.2 C 72 16 91/51 L 98 09/27/16 12:29 09/27/16 12:29 09/27/16 12:29 09/27/16 12:29 09/27/16 12:29 PT 13.4 SEC (12.0-15.0) 09/26/16 17:07 INR 1.03 (0.83-1.16) 09/26/16 17:07 ICD10 Worksheet Patient Problems: Problems Problem Status Onset Upper GI bleed Acute Alcohol abuse Active Esophagitis Active Gastritis Active Gastrointestinal hemorrhage Active Anemia Acute Metatarsal fracture Acute Pre-syncope Acute Severe anemia Acute Urinary tract infection Acute
[2016-09-27] MEDS ORDERED: fentaNYL 100 MCG/2 ML INJ ONE (17:12)
--- NOTE | 2016-09-27 17:40 | GPN ---
[f rep st] PROCEDURE NOTE PROCEDURE: Gastroscopy. INDICATION: The patient is a 56-year-old female who presents with melena and anemia. She has a history of recurrent GI bleeding felt to be due to Ej ulcers. She has had multiple endoscopies, including one in May of this year. She has had previous colonoscopies and capsule endoscopy which, by report , are negative. Gastroscopy is being requested to evaluate for active upper GI bleeding and treat accordingly. PROCEDURE: After proper consent was obtained, patient was placed in left lateral decubitus position and received IV general anesthesia. Video gastroscope was introduced through the mouth, down the esophagus, into the stomach, and past the pylorus into the duodenal. FINDINGS: 1. Esophagus was normal. 2. An 8 cm hiatal hernia sac. 3. Multiple small Ej ulcerations, none of which were actively bleeding. 4. The remainder of stomach and duodenum are normal. At this point, instruments were removed. Patient tolerated procedure well and was returned to Recovery in stable condition. RECOMMENDATIONS: 1. Transfusions, as per Hospitalist team. 2. Continue proton pump inhibitors. 3. Consideration should be given to hiatal hernia repair by Surgery to try to correct the cause of these Ej ulcerations. 4. At this moment, I see no reason to proceed with a repeat colonoscopy or capsule endoscopy. /[id number]/MODL MTDD
[2016-09-27] MEDS: PREGABALIN 75 MG CAP PO PRN (22:19)
[2016-09-28] MEDS: ACETAMINOPHEN 325 MG TAB PO PRN ×3 (00:15→21:34)
[2016-09-28] MEDS: oxyCODONE IR 5 MG TAB PO PRN ×4 (00:16→20:12)
[2016-09-28] MEDS: HYDROmorphONE/DILAUDID 1 MG/ML SYR IVP PRN (02:43)
[2016-09-28 04:54] LABS: % IMMATURE GRANULYOCYTES 0.2 % (0.0-1.1); ABSOLUTE IMMATURE GRANULOCYTES 0.01 10^3/uL (0.00-0.10); ADD DIFF? NO; ADD MORPH? YES; ADD SCAN? NO; ATYPICAL LYMPHOCYTE FLAG 0 (0-99); FRAGMENT RBC FLAG 20 (0-99); HEMATOCRIT 28.8 % (38.0-47.0); HEMOGLOBIN 8.9 g/dL (12.6-16.3); LEFT SHIFT FLG 0 (0-99); LIPEMIA HEMOLYSIS FLAG 80 (0-99); MEAN CELL HEMOGLOBIN 25.8 pg (27.9-34.1); MEAN CELL HEMOGLOBIN CONCENTR. 30.9 g/dL (32.4-36.7); MEAN CELL VOLUME 83.5 fL (81.5-99.8); MEAN PLATELET VOLUME 9.6 fL (8.7-11.7); PLATELET CLUMPS FLAG 0 (0-99); PLATELET COUNT 259 10^3/uL (150-400); RED BLOOD CELL COUNT 3.45 10^6/uL (4.18-5.33)
[2016-09-28 05:05] LABS: RED CELL DISTRIBUTION WIDTH 20.2 % (11.5-15.2)
[2016-09-28 05:09] LABS: ANION GAP 7 mEq/L (8-16); CALCIUM 8.4 mg/dL (8.5-10.4); CARBON DIOXIDE 23 mEq/l (22-31); CHLORIDE 108 mEq/L (97-110); CREATININE 0.7 mg/dL (0.6-1.0); GLOMERULAR FILTRATION RATE > 60; GLUCOSE 86 mg/dL (70-100); POTASSIUM 4.2 mEq/L (3.5-5.2); SODIUM 138 mEq/L (134-144)
[2016-09-28 06:20] LABS: HYPOCHROMIA 2+; MACROCYTES 1+; MICROCYTES 1+; PLATELET ESTIMATE ADEQUATE (ADEQ); POLYCHROMASIA 1+
[2016-09-28] MEDS: BACLOFEN 10 MG TAB PO SCH ×3 (09:03→21:34)
[2016-09-28] MEDS: PANTOPRAZOLE SODIUM 40 MG TAB PO SCH ×2 (09:04→20:12)
[2016-09-28] MEDS: ESCITALOPRAM OXALATE 10 MG TAB PO SCH (09:04)
[2016-09-28] MEDS: clonazePAM 0.5 MG TAB PO SCH (09:04)
[2016-09-28] MEDS: TOPIRAMATE 100 MG TAB PO SCH (09:04)
[2016-09-28] MEDS: LOSARTAN/HCTZ 50/12.5 1 TAB PO SCH (09:04)
--- NOTE | 2016-09-28 10:12 | HOSPPROG ---
Hospitalist Progress Note Assessment/Plan: 56 yo F w iron deficient anemia anemia dark diarrhea: concerning for ongoing blood loss in setting of known HH w zuleyma lesions EGD yesterday showed zuleyma lesions, but no active bleeding H&H stable no NSAIDS or alcohol fever - new, possible viral etiology given general malaise and non-specific symptoms vs atelectasis vs PNA with cough, +recent UTI check ua, CXR, send BCx's add IS follow fever curve acute on chronic blood loss anemia: hgb stable this am s/p 2 units prbcs no e/o active bleeding zoster: lesions on scalp are old, excoriated, pt continues to pick at these. this does not appear c/w active zoster infection continue contact precaustions proph: scd's dispo: inpt Subjective: Pt feels poorly, reports general malaise, headache. Had a dark stool last night, but seemed improved from prior. Fever this am. Pt endorses cough. Had UTI recently, completed atbx course. Poor oral intake. Objective: Vital Signs Temp Pulse Resp BP Pulse Ox 38.4 C H 95 18 118/94 H 90 L 09/28/16 08:04 09/28/16 08:04 09/28/16 08:04 09/28/16 08:04 09/28/16 08:04 Laboratory Results 09/28/16 04:28 09/28/16 04:28 PT 13.4 SEC (12.0-15.0) 09/26/16 17:07 INR 1.03 (0.83-1.16) 09/26/16 17:07 - Physical Exam Constitutional: no apparent distress Eyes: PERRL Ears, Nose, Mouth, Throat: moist mucous membranes Cardiovascular: regular rate and rhythym, no murmur, rub, or gallop Respiratory: no respiratory distress, reduced air movement Gastrointestinal: normoactive bowel sounds, soft, non-tender abdomen Skin: warm Musculoskeletal: full muscle strength Neurologic: AAOx3 ICD10 Worksheet Patient Problems: Problems Problem Status Onset Upper GI bleed Acute Alcohol abuse Active Esophagitis Active Gastritis Active Gastrointestinal hemorrhage Active Anemia Acute Metatarsal fracture Acute Pre-syncope Acute Severe anemia Acute Urinary tract infection Acute
[2016-09-28 12:40] VITALS: RESP 16
[2016-09-28 15:40] LABS: COLOR PALE YELLOW; LEUKOCYTE ESTERASE,URINE NEGATIVE (NEGATIVE); NITRITE,URINE NEGATIVE (NEGATIVE)
[2016-09-28] MEDS: HYOSCYAMINE SULFATE 0.125 MG TAB PO PRN ×2 (16:37→21:34)
[2016-09-28] MEDS: PREGABALIN 75 MG CAP PO PRN (21:34)
[2016-09-29 04:40] VITALS: O2SAT 91
[2016-09-29 05:35] LABS: ADD DIFF? NO; ADD MORPH? YES; ADD SCAN? NO; ATYPICAL LYMPHOCYTE FLAG 0 (0-99); FRAGMENT RBC FLAG 20 (0-99); HEMATOCRIT 28.5 % (38.0-47.0); HEMOGLOBIN 8.9 g/dL (12.6-16.3); LEFT SHIFT FLG 0 (0-99); LIPEMIA HEMOLYSIS FLAG 80 (0-99); MEAN CELL HEMOGLOBIN 25.8 pg (27.9-34.1); MEAN CELL HEMOGLOBIN CONCENTR. 31.2 g/dL (32.4-36.7); MEAN CELL VOLUME 82.6 fL (81.5-99.8); MEAN PLATELET VOLUME 9.7 fL (8.7-11.7); PLATELET CLUMPS FLAG 0 (0-99); PLATELET COUNT 241 10^3/uL (150-400); RED BLOOD CELL COUNT 3.45 10^6/uL (4.18-5.33)
[2016-09-29 05:42] LABS: RED CELL DISTRIBUTION WIDTH 20.7 % (11.5-15.2)
[2016-09-29 05:46] LABS: ANION GAP 7 mEq/L (8-16); CALCIUM 8.8 mg/dL (8.5-10.4); CARBON DIOXIDE 24 mEq/l (22-31); CHLORIDE 108 mEq/L (97-110); CREATININE 0.6 mg/dL (0.6-1.0); GLOMERULAR FILTRATION RATE > 60; GLUCOSE 90 mg/dL (70-100); POTASSIUM 3.7 mEq/L (3.5-5.2); SODIUM 139 mEq/L (134-144)
[2016-09-29 07:16] LABS: HYPOCHROMIA 1+; MACROCYTES 1+; MICROCYTES 1+
[2016-09-29 07:17] LABS: PLATELET ESTIMATE ADEQUATE (ADEQ)
[2016-09-29 09:17] VITALS: BP 112/75; PULSE 64; TEMP 97.9
[2016-09-29] MEDS: ESCITALOPRAM OXALATE 10 MG TAB PO SCH (09:18)
[2016-09-29] MEDS: BACLOFEN 10 MG TAB PO SCH (09:18)
[2016-09-29] MEDS: TOPIRAMATE 100 MG TAB PO SCH (09:18)
[2016-09-29] MEDS: clonazePAM 0.5 MG TAB PO SCH (09:18)
[2016-09-29] MEDS: PANTOPRAZOLE SODIUM 40 MG TAB PO SCH (09:18)
--- NOTE | 2016-09-29 09:38 | GDS ---
[f rep st] DISCHARGE SUMMARY DISCHARGE DIAGNOSES: 1. Upper gastrointestinal bleed requiring 2 units packed red blood cells with discharge hemoglobin of 8.9. 2. Acute on chronic blood loss anemia, transfusion as above. 3. Hiatal hernia with Ej lesions. This is the suspected source of bleeding. 4. Fever, likely atelectatic, resolved. No evidence of infection. 5. Herpes zoster, resolving. Not likely an acute zoster infection. CONSULTANTS: Dr. Aldo Zimmer, gastroenterology. IMAGING/PROCEDURES: EGD performed September 27, 2016 showed a normal esophagus and an 8 cm hiatal hernia with multiple small Ej ulcerations, none of which were actively bleeding. The remainder of the stomach and duodenal were normal. HISTORY: For details, please see the history and physical dated September 26. In brief, the patient is a 56-year-old female with a history of chronic anemia in the setting of a large hiatal hernia and C ameron erosions, who presented to the emergency department with abdominal pain and melenic stool. HOSPITAL COURSE: The patient was admitted to the medical-surgical unit. She was started on PPI the rapy and a trial of Levsin for abdominal pain. Gastroenterology was consulted. An EGD was performe d with results as above. It is recommended that she have outpatient followup with General Surgery t o consider repair of her hiatal hernia, as this might resolve her bleeding source from the Ej l esions. I discussed the case with Dr. Lopez, and he agrees with outpatient consultation. She did require 2 units of packed red blood cells. Her hemoglobin improved from 6.6 to 8.9 and has uriel ined stable for greater than 48 hours with no evidence of active bleeding. The day of discharge, he modynamically stable. She did have 1 episode of a low-grade fever with a negative urinalysis and ne gative chest x-ray, and no localizing symptoms of infection. This was suspected to most likely be a n atelectatic fever, which is consistent with her findings on chest x-ray. She was given incentive spirometer. Her fevers resolved. DISPOSITION: Patient is discharged home in stable condition. FOLLOWUP: 1. Dr. Cliff Lopez, general surgery, to discuss possible hiatal hernia repair. 2. Primary care physician. DISCHARGE MEDICATIONS: Please see [facility] for complete updated outpatient medication list. She wi ll continue all outpatient medications as previously prescribed. New medication on discharge includ es Levsin 0.125 mg p.o. q.4 hours p.r.n. #60, no refills. /[id number]/MODL
== END 2016-09-29 11:20 | disposition home or self-care (01) | DRG 378 ==
LOC: EDUNIT# → F1N 14:35 → OBSVTOIN 09-27 12:26
PROVIDERS: ADMIT Family Medicine; ATTEND Hospitalist
DX: K92.2 Gastrointestinal hemorrhage, unspecified (principal); D62 Acute posthemorrhagic anemia; K22.10 Ulcer of esophagus without bleeding; K44.9 Diaphragmatic hernia without obstruction or gangrene; B02.9 Zoster without complications; S92.902D Unspecified fracture of left foot, subsequent encounter for fracture with routine healing
CPT/HCPCS: 96374; J1170; J2250; J2704; J3010; P9016; P9021

== ENCOUNTER 2016-10-29 09:22 | Inpatient (IN) | payer MEDICAID ==
[2016-10-29] MEDS ORDERED: BUPIVACAINE/EPI 0.25% 30 ML SDV ONE ×2 (09:26→09:33)
[2016-10-29] MEDS ORDERED: CLINDAMYCIN 900 MG/DEXTROSE 50 ML IV ONE (09:37)
[2016-10-29] MEDS ORDERED: LIDOCAINE 1% 2 ML INJ ID PRN (09:42)
[2016-10-29] MEDS ORDERED: LR 1,000 ML IV ONE (09:42)
[2016-10-29] MEDS ORDERED: LIDOCAINE 1% 2 ML INJ ONE (09:48)
--- NOTE | 2016-10-29 09:59 | PDGENHP ---
History and Physical - Chief Complaint Camerons - History of Present Illness Long standing GERD, Camerons ulcer with chronic UGIB History Information - Allergies/Home Medication List Allergies/Adverse Reactions: Penicillins Allergy (Severe, Verified 09/03/16 12:29) Anaphylaxis meperidine HCl [From Demerol] Allergy (Mild, Verified 09/03/16 12:29) SITE RASH atenolol Allergy (Verified 10/26/16 15:09) Wheezing hydrocodone bitartrate [From Lortab] Allergy (Verified 10/26/16 15:09) Itching morphine Allergy (Verified 10/26/16 15:09) Rash venom-honey bee [bee venom (honey bee)] Allergy (Verified 10/26/16 15:09) Anaphylaxis Home Medications: Baclofen [Baclofen 10 mg (*)] 30 mg PO TID 09/03/16 [Last Taken 10/28/16 19:00] Escitalopram Oxalate [Lexapro] 20 mg PO DAILY 09/03/16 [Last Taken 10/28/16 08: 00] Losartan/Hydrochlorothiazide [Losartan-Hctz 100-25 mg Tab] 1 each PO DAILY 09/03 [Last Taken 10/28/16] Pregabalin [Lyrica 75mg (*)] 75 mg PO BID PRN 09/03/16 [Last Taken 10/24/16] Topiramate [Topamax 100MG (*)] 200 mg PO DAILY 09/03/16 [Last Taken 10/28/16] clonazePAM [Klonopin (*)] 0.5 mg PO DAILY 09/03/16 [Last Taken 10/28/16 09:00] hydrOXYzine HCL [Vistaril 25MG] 25 mg PO QID PRN 09/03/16 [Last Taken 10/28/16] oxyCODONE IR [Oxycodone Ir (*)] 5 mg PO TID PRN 09/03/16 [Last Taken 10/22/16] I have personally reviewed and updated: family history, medical history, social history, surgical history - Social History Smoking Status: Never smoked Review of Systems ROS: 10pt was reviewed & negative except for what was stated in HPI & below Physical Exam Constitutional: no apparent distress Eyes: PERRL Cardiovascular: regular rate and rhythym Respiratory: no respiratory distress Gastrointestinal: normoactive bowel sounds Assessment & Plan Assessment: Camerons Ulcer Plan: OR, Hiatal hernia repair with Mario. RBA discussed
[2016-10-29 10:17] LABS: % IMMATURE GRANULYOCYTES 0.2 % (0.0-1.1); ABSOLUTE IMMATURE GRANULOCYTES 0.01 10^3/uL (0.00-0.10); ADD DIFF? NO; ADD MORPH? NO; ADD SCAN? NO; ATYPICAL LYMPHOCYTE FLAG 30 (0-99); FRAGMENT RBC FLAG 40 (0-99); HEMATOCRIT 23.7 % (38.0-47.0); HEMOGLOBIN 7.1 g/dL (12.6-16.3); LEFT SHIFT FLG 0 (0-99); LIPEMIA HEMOLYSIS FLAG 80 (0-99); MEAN CELL HEMOGLOBIN 24.5 pg (27.9-34.1); MEAN CELL VOLUME 81.7 fL (81.5-99.8); PLATELET CLUMPS FLAG 0 (0-99); PLATELET COUNT 298 10^3/uL (150-400); RED CELL DISTRIBUTION WIDTH 19.9 % (11.5-15.2)
[2016-10-29] MEDS ORDERED: MIDAZOLAM 2 MG/2 ML VIAL IVP ONE (10:18)
--- NOTE | 2016-10-29 10:18 | PDANEPAE ---
ANE History of Present Illness h/o GERD and hiatal hernia ANE Past Medical History - Cardiovascular History Hx Hypertension: No Hx Arrhythmias: No Hx Chest Pain: No Hx Coronary Artery / Peripheral Vascular Disease: No Hx CHF / Valvular Disease: No Hx Palpitations: No - Pulmonary History Hx COPD: No Hx Asthma/Reactive Airway Disease: No Hx Recent Upper Respiratory Infection: No Hx Oxygen in Use at Home: No - Neurologic History Hx Cerebrovascular Accident: No Hx Seizures: No Hx Dementia: No - Endocrine History Hx Diabetes: No - Renal History Hx Renal Disorders: No - Liver History Hx Hepatic Disorders: No - Neurological & Psychiatric Hx Hx Neurological and Psychiatric Disorders: Yes - Cancer History Hx Cancer: No - Congenital Disorder History Hx Congenital Disorders: No - GI History Hx Gastrointestinal Disorders: Yes - Chronic Pain History Chronic Pain: Yes ANE Review of Systems - Exercise capacity METS (RN): 4 METS ANE Patient History - Allergies Allergies/Adverse Reactions: Penicillins Allergy (Severe, Verified 09/03/16 12:29) Anaphylaxis meperidine HCl [From Demerol] Allergy (Mild, Verified 09/03/16 12:29) SITE RASH atenolol Allergy (Verified 10/26/16 15:09) Wheezing hydrocodone bitartrate [From Lortab] Allergy (Verified 10/26/16 15:09) Itching morphine Allergy (Verified 10/26/16 15:09) Rash venom-honey bee [bee venom (honey bee)] Allergy (Verified 10/26/16 15:09) Anaphylaxis - Home Medications Home Medications: Baclofen [Baclofen 10 mg (*)] 30 mg PO TID 09/03/16 [Last Taken 10/28/16 19:00] Escitalopram Oxalate [Lexapro] 20 mg PO DAILY 09/03/16 [Last Taken 10/28/16 08: 00] Losartan/Hydrochlorothiazide [Losartan-Hctz 100-25 mg Tab] 1 each PO DAILY 09/03 [Last Taken 10/28/16] Pregabalin [Lyrica 75mg (*)] 75 mg PO BID PRN 09/03/16 [Last Taken 10/24/16] Topiramate [Topamax 100MG (*)] 200 mg PO DAILY 09/03/16 [Last Taken 10/28/16] clonazePAM [Klonopin (*)] 0.5 mg PO DAILY 09/03/16 [Last Taken 10/28/16 09:00] hydrOXYzine HCL [Vistaril 25MG] 25 mg PO QID PRN 09/03/16 [Last Taken 10/28/16] oxyCODONE IR [Oxycodone Ir (*)] 5 mg PO TID PRN 09/03/16 [Last Taken 10/22/16] - NPO status NPO Since - Liquids (Date): 10/28/16 NPO Since - Liquids (Time): 23:55 NPO Since - Solids (Date): 10/28/16 NPO Since - Solids (Time): 20:00 - Anes Hx Anes Hx: no prior problems - Smoking Hx Smoking Status: Never smoked - Family Anes Hx Family Anes Hx: none Family Hx Anesthesia Complications: none ANE Labs/Vital Signs - Labs Result Diagrams: 10/29/16 10:12 - Vital Signs Blood Pressure: 146/89 Heart Rate: 95 Respiratory Rate: 18 O2 Sat (%): 97 Height: 162.56 cm Weight: 61.689 kg ANE Physical Exam - Airway Neck exam: FROM Mallampati Score: Class 1 Mouth exam: normal dental/mouth exam - Pulmonary Pulmonary: no respiratory distress - Cardiovascular Cardiovascular: regular rate and rhythym - ASA Status ASA Status: III ANE Anesthesia Plan Anesthesia Plan: general endotracheal anesthesia
[2016-10-29] MEDS ORDERED: fentaNYL 100 MCG/2 ML INJ ONE ×4 (10:25→13:07)
[2016-10-29] MEDS ORDERED: OXYCODONE/APAP 5/325 TAB PO PRN (12:43)
[2016-10-29] MEDS ORDERED: PROMETHAZINE HCL 25 MG/ML INJ IVP PRN ×2 (12:43→13:26)
[2016-10-29] MEDS ORDERED: ALBUTEROL 3 ML DEYVIAL IH PRN (12:43)
[2016-10-29] MEDS ORDERED: LABETALOL HCL 50 MG/10 ML SYR IVP PRN (12:43)
[2016-10-29] MEDS ORDERED: NALOXONE HCL 0.4 MG/ML INJ IVP PRN (12:43)
[2016-10-29] MEDS ORDERED: ONDANSETRON 4 MG/2 ML VIAL IVP PRN ×2 (12:43→13:26)
[2016-10-29] MEDS ORDERED: HYDROmorphONE/DILAUDID 1 MG/ML SYR ONE ×2 (12:56→13:07)
[2016-10-29] MEDS: fentaNYL 100 MCG/2 ML INJ IVP PRN ×4 (12:57→13:15)
--- NOTE | 2016-10-29 12:57 | POSTANESTH ---
Post Anesthetic Evaluation Cardiovascular Status: Normal, Stable Respiratory Status: Normal, Stable Level of Consciousness/Mental Status: Can Participate in Eval Pain Control: Adequate, Prn Tx Ordered Nausea/Vomiting Control: Adequate, Prn Tx Ordered Complications Possibly Related to Anesthesia: None Noted
[2016-10-29] MEDS: HYDROmorphONE/DILAUDID 1 MG/ML SYR IVP PRN ×6 (12:59→13:50)
[2016-10-29] MEDS ORDERED: HYDROCODONE/APAP 5/325 TAB PO PRN (13:26)
[2016-10-29] MEDS ORDERED: hydrOXYzine HCL 25 MG TAB PO PRN (13:41)
[2016-10-29] MEDS ORDERED: PREGABALIN 75 MG CAP PO PRN (13:41)
[2016-10-29] MEDS: D5W 1/2 NS W/ 20 KCl/L 1,000 ML IV SCH (14:41)
[2016-10-29] MEDS: BACLOFEN 10 MG TAB PO SCH ×2 (15:58→21:05)
[2016-10-29] MEDS: KETOROLAC 15 MG/1 ML SDV IVP SCH (18:11)
[2016-10-29] MEDS: oxyCODONE IR 5 MG TAB PO PRN (18:12)
--- NOTE | 2016-10-29 20:29 | GOP ---
[f rep st] OPERATIVE REPORT DATE OF OPERATION: 10/29/2016 SURGEON: Cliff Lopez MD WEBBING INSPECTOR: Nikolay Hess MD ANESTHESIA: General endotracheal. ANESTHESIOLOGIST: Dr. Núñez PREOPERATIVE DIAGNOSIS: 1. Transfusion-requiring Ej ulcers. 2. Longstanding gastroesophageal reflux. POSTOPERATIVE DIAGNOSIS: 1. Transfusion-requiring Ej ulcers. 2. Longstanding gastroesophageal reflux. PROCEDURE PERFORMED: 1. Laparoscopic hiatal hernia repair. 2. Mario fundoplication. FINDINGS: Fairly large hiatal hernia with about a third of the stomach within there successfully reduced. Hiatus reapproximated primarily. 360 degree wrap performed over 48-Yoruba bougie. SPECIMENS: None. ESTIMATED BLOOD LOSS: 20 cc. DESCRIPTION OF PROCEDURE: The patient was greeted in the preoperative suite. Once again, risks, benefits, and alternatives were discussed, consent was signed. She was then brought back to the operative suite, placed on the OR table in supine position. After all anesthesia machines, including SCDs, were on and functioning, a World Health Organization time-out was performed ending with all in agreement. Antibiotics were given on-call to the operating room. After successful anesthetic induction, the patient's abdomen was widely prepped and draped in the typical sterile fashion. I entered the abdomen using the Veress needle via a stab incision in the left upper quadrant and achieved pneumoperitoneum to 15 mmHg which was well tolerated. I then, using the Visiport technique, used a 12 mm trocar and inserted it into the left upper abdomen. I then inserted 5 additional trocars, both 5 and 12 mm throughout the abdomen all under direct visualization. I turned my attention first toward dividing the pars flaccida creating a window into the lesser sac. After this was done, I carried my dissection all the way to the right hugo where I freed it from the hernia sac and reduced the stomach contents into the patient's abdomen. I then carried my dissection circumferentially all the way around to the left hugo where I did that in the same manner. After the entire sac had been reduced back into the abdominal cavity and I had approximately 3 cm of esophagus into the patient's abdomen, I turned my attention toward the hugo and performed a posterior repair. Once again, inspected both crura which were free of any hernia contents and clean. Using multiple interrupted Ethibond sutures, I successfully reapproximated the crura posteriorly, leaving adequate room for the esophagus to enter the patient's abdomen. After this was done, I turned my attention toward dividing a portion of the short gastrics and the superior portion of the gastric fundus. Once this was done, I placed a 48-Yoruba bougie successfully into the patient's stomach. Over this, I fashioned my wrap. I performed a shoeshine maneuver successfully. I then fashioned my wrap using multiple interrupted Ethibond sutures incorporating the esophagus into the wrap itself. Once this was done, I removed the bougie, noted that the wrap was just tight enough to allow me to pass my dissector but not overly constricting. I then irrigated the right upper quadrant using a liter of warm normal saline, noting clear effluent in the suction canister. I infiltrated all port sites with local anesthesia which were then removed under direct visualization. I closed my initial port site using an interrupted 0 Vicryl stitch, noting excellent fascial reapproximation. All skin sites were closed with running 4-0 Monocryl over which Dermabond was placed. Patient was then extubated in the operative suite and placed in in the PACU in satisfactory condition. DRAINS: None. COUNTS: All counts were reported as correct x2. /[id number]/MODL MTDD
[2016-10-29] MEDS: PANTOPRAZOLE SODIUM 40 MG TAB PO SCH (21:05)
[2016-10-29] MEDS: oxyCODONE IR 5 MG TAB PO SCH (21:05)
[2016-10-30] MEDS: KETOROLAC 15 MG/1 ML SDV IVP SCH ×5 (00:41→23:22)
[2016-10-30] MEDS: D5W 1/2 NS W/ 20 KCl/L 1,000 ML IV SCH (00:41)
[2016-10-30] MEDS: oxyCODONE IR 5 MG TAB PO PRN ×4 (00:42→19:49)
[2016-10-30] MEDS: HYDROmorphONE/DILAUDID 1 MG/ML SYR IVP PRN ×4 (00:51→23:22)
[2016-10-30 07:22] LABS: HEMATOCRIT 20.4 % (38.0-47.0)
[2016-10-30] MEDS ORDERED: NON-FORMULARY NEW DRUG (Losartan/Hydrochlorothiazide [Losartan-Hctz 100-25 Mg Tab] 1 EACH) PO SCH (09:00)
--- NOTE | 2016-10-30 09:45 | SOAPPROG ---
SOAP Progress Note Assessment/Plan: Assessment/Plan: POD#1 s/p Lap hiatal hernia repair with Mario - Pain controlled, transition to orals - MADELINE - HDS - Abd soft, aTTP. TOlerating clears, will advance to fulls - Hb down to 6, only started pre op at 7. Transfusion today - Will likely be here addl 24hrs, advance diet, recheck Hb after transfusion 10/30/16 09:44 Subjective: Tired, no nausea Objective: Vital Signs Temp Pulse Resp BP Pulse Ox 36.6 C 86 16 115/72 91 L 10/30/16 07:38 10/30/16 07:38 10/30/16 07:38 10/30/16 07:38 10/30/16 07:38 Laboratory Results 10/30/16 07:15 10/29/16 10/30/16 10/31/16 05:59 05:59 05:59 Intake Total 2688 Output Total 950 Balance 1738 ICD10 Worksheet Patient Problems: Problems Problem Status Onset Alcohol abuse Active Esophagitis Active Gastritis Active Gastrointestinal hemorrhage Active Anemia Acute Metatarsal fracture Acute Pre-syncope Acute Severe anemia Acute Upper GI bleed Acute Urinary tract infection Acute
[2016-10-30] MEDS: oxyCODONE IR 5 MG TAB PO SCH ×3 (09:54→23:21)
[2016-10-30] MEDS: BACLOFEN 10 MG TAB PO SCH ×3 (09:54→23:21)
[2016-10-30] MEDS: ESCITALOPRAM OXALATE 10 MG TAB PO SCH (09:55)
[2016-10-30] MEDS: clonazePAM 0.5 MG TAB PO SCH (09:55)
[2016-10-30] MEDS: TOPIRAMATE 100 MG TAB PO SCH (09:55)
[2016-10-30] MEDS: LOSARTAN/HCTZ 50/12.5 1 TAB PO SCH (09:55)
[2016-10-30] MEDS: PANTOPRAZOLE SODIUM 40 MG TAB PO SCH ×2 (09:55→19:50)
[2016-10-30] MEDS: METOCLOPRAMIDE 10 MG/2 ML VIAL IVP PRN (23:22)
[2016-10-31] MEDS: D5W 1/2 NS W/ 20 KCl/L 1,000 ML IV SCH (03:52)
[2016-10-31] MEDS: HYDROmorphONE/DILAUDID 1 MG/ML SYR IVP PRN (03:52)
[2016-10-31] MEDS: KETOROLAC 15 MG/1 ML SDV IVP SCH ×4 (05:24→23:23)
[2016-10-31 07:20] LABS: HEMOGLOBIN 9.3 g/dL (12.6-16.3); MEAN CELL HEMOGLOBIN 26.4 pg (27.9-34.1); MEAN CELL HEMOGLOBIN CONCENTR. 32.1 g/dL (32.4-36.7); MEAN CELL VOLUME 82.4 fL (81.5-99.8); RED BLOOD CELL COUNT 3.52 10^6/uL (4.18-5.33)
[2016-10-31] MEDS: oxyCODONE IR 5 MG TAB PO PRN ×4 (07:52→23:23)
[2016-10-31] MEDS: BACLOFEN 10 MG TAB PO SCH ×3 (09:13→21:21)
[2016-10-31] MEDS: clonazePAM 0.5 MG TAB PO SCH (09:14)
[2016-10-31] MEDS: ESCITALOPRAM OXALATE 10 MG TAB PO SCH (09:14)
[2016-10-31] MEDS: PANTOPRAZOLE SODIUM 40 MG TAB PO SCH ×2 (09:14→21:20)
[2016-10-31] MEDS: TOPIRAMATE 100 MG TAB PO SCH (09:14)
[2016-10-31] MEDS: oxyCODONE IR 5 MG TAB PO SCH ×3 (09:14→21:20)
[2016-10-31] MEDS: LOSARTAN/HCTZ 50/12.5 1 TAB PO SCH (09:14)
--- NOTE | 2016-10-31 13:59 | SOAPPROG ---
SOAP Progress Note Assessment/Plan: Assessment/Plan: 56 Y F GERD, Ej ulcers, s/p lap large hiatal hernia repair , Mario fundoplication, POD#2. Acute on chronic anemia, 2/2 ej ulcers, acute post op blood loss. H&H much improved since transfusion. Repeat in AM. Advance to dysphagia II diet. Continue pain control. Continue routine post op care. Declines PT/OT eval. Dispo: wants to go home. Lives alone. Likely dc in am. S: c/o pain across upper abdomen, "like a stitch from running." +flatus, no BM. No N/V. No dizziness. O: alert, nad mmm chest clear cor rrr abd soft, +BS, inc cdi. 10/31/16 13:55 Objective: Vital Signs Temp Pulse Resp BP Pulse Ox 37.4 C 78 16 108/65 96 10/31/16 07:32 10/31/16 07:32 10/31/16 07:32 10/31/16 07:32 10/31/16 07:32 Laboratory Results 10/31/16 07:12 10/30/16 10/31/16 11/01/16 05:59 05:59 05:59 Intake Total 1474 2401 Output Total 950 2200 Balance 1738 -463 ICD10 Worksheet Patient Problems: Problems Problem Status Onset Alcohol abuse Active Esophagitis Active Gastritis Active Gastrointestinal hemorrhage Active Anemia Acute Metatarsal fracture Acute Pre-syncope Acute Severe anemia Acute Upper GI bleed Acute Urinary tract infection Acute
[2016-10-31] MEDS: METOCLOPRAMIDE 10 MG/2 ML VIAL IVP PRN (15:50)
[2016-11-01] MEDS: KETOROLAC 15 MG/1 ML SDV IVP SCH ×2 (05:09→11:41)
[2016-11-01] MEDS: oxyCODONE IR 5 MG TAB PO PRN (05:10)
[2016-11-01 05:19] LABS: HEMATOCRIT 33.4 % (38.0-47.0); HEMOGLOBIN 10.5 g/dL (12.6-16.3)
[2016-11-01 07:43] VITALS: BP 117/76; PULSE 70; RESP 17; TEMP 98.3; O2SAT 97
[2016-11-01] MEDS: TOPIRAMATE 100 MG TAB PO SCH (08:00)
[2016-11-01] MEDS: oxyCODONE IR 5 MG TAB PO SCH (08:00)
[2016-11-01] MEDS: PANTOPRAZOLE SODIUM 40 MG TAB PO SCH (08:00)
[2016-11-01] MEDS: clonazePAM 0.5 MG TAB PO SCH (08:00)
[2016-11-01] MEDS: ESCITALOPRAM OXALATE 10 MG TAB PO SCH (08:00)
[2016-11-01] MEDS: LOSARTAN/HCTZ 50/12.5 1 TAB PO SCH (08:01)
[2016-11-01] MEDS: BACLOFEN 10 MG TAB PO SCH (08:01)
--- NOTE | 2016-11-01 16:10 | PDDCSUM ---
Discharge Summary Discharge Summary: DISCHARGE SUMMARY Date of Admission: 10/29 Date of Discharge: 11/01 DISCHARGE DIAGNOSES - transfusion requiring Ej's ulcers - hiatal hernia - chronic gastroesophageal reflux disease HOSPITAL COURSE The patient was admitted on the above date for her elective procedure. Her surgery had no intraoperative complications. They were subsequently taken to the PACU and then the general medical floor. The hospital course was uneventful , their diet was advanced to a soft diet which was well tolerated and their pain was well controlled. They were discharged home in stable condition on November 01, 2016 DISCHARGE MEDICATIONS All home medications restarted, only new medications were oxycodone and Zofran ODT DISPOSITION Home FOLLOW UP Follow up with me in the office in 10-14 days for a general post-operative visit
== END 2016-11-01 14:27 | disposition home or self-care (01) | DRG 328 ==
LOC: F3E 09:22 → OBSVTOIN 13:27 → F3E 14:12
PROVIDERS: ADMIT Surgery; ATTEND Surgery
PROC: 0DV44ZZ Restriction of Esophagogastric Junction, Percutaneous Endoscopic Approach (ICD-10-PCS; principal; 2016-10-29 10:00)
PROC: 30233N1 Transfusion of Nonautologous Red Blood Cells into Peripheral Vein, Percutaneous Approach (ICD-10-PCS; 2016-10-30)
DX: K25.4 Chronic or unspecified gastric ulcer with hemorrhage (principal); K21.9 Gastro-esophageal reflux disease without esophagitis; K44.9 Diaphragmatic hernia without obstruction or gangrene
CPT/HCPCS: J1170; J1885; J2250; J2405; J2550; J2765; J3010; P9016

== ENCOUNTER 2017-07-20 14:58 | Inpatient (IN) | payer MEDICAID ==
[2017-07-20] MEDS ORDERED: NS 500 ML IV ONE (15:12)
--- NOTE | 2017-07-20 15:15 | EDPHY ---
H & P Time Seen by Provider: 07/20/17 15:02 HPI/ROS: CHIEF COMPLAINT: Fall HISTORY OF PRESENT ILLNESS: The patient is a 57-year-old female who fell [place]. Patient states he was of significantly steep great. She tumbled multiple times. She may have lost consciousness but she is not sure. She complains of a head laceration and headache. She also complains of left shoulder and left arm pain. She denies neck or back pain. No shortness of breath or chest pain. No abdominal pain. No nausea or vomiting. No pelvic pain. REVIEW OF SYSTEMS: My complete review of systems is negative except as mentioned in the HPI. Past Medical/Surgical History: Includes Dslireb-Osufb-Vumco, idiopathic neuropathy, post herpetic neuralgia, upper GI bleed, ulcers, anemia, esophageal stricture, alcoholism, IBS, depression, anxiety, chronic pain Smoking Status: Never smoked Physical Exam: Vitals noted GENERAL: Well-appearing, in no acute distress, alert. HEAD: Patient has a 4 cm gaping laceration on her right brow. There is a noted hematoma posterior to the laceration. Significant amount of dry blood. EYES: PERRLA, EOMI, normal to inspection. ENT: Airway intact, no dental or oral injury, no malocclusion, no hemotympanum , normal external examination. NECK: The trachea is midline. There is no crepitus. The C-spine is nontender. NEXUS criteria is negative (no midline tenderness, no distracting injury, no altered mental status, no recent alcohol use, no focal neurologic deficit). RESPIRATORY: Clear to auscultation bilaterally, no rales, rhonchi or wheezing. There is no crepitus or palpable rib fractures. CVS: Regular rate and rhythm, no rubs, murmurs, or gallops. ABDOMEN: Soft, nontender, nondistended, normal bowel sounds, no bruising or abrasions. Pelvis: Stable. No tenderness palpation. Hips full range of motion. GENITAL/RECTAL: Normal external exam. BACK: Normal to inspection, no spinal tenderness, no spinal step off, no notable bruising or abrasions. SKIN: Normal color, warm, dry. No pallor or diaphoresis. EXTREMITIES: Right upper extremity: Atraumatic. No visible signs of trauma. No tenderness palpation. Neurovascular intact distally. Left upper extremity: Patient has diffuse tenderness in her left upper extremity. There is no obvious deformity. The patient has a flex splint in place. Neurovascular intact distally. Right lower extremity: Atraumatic. No visible signs of trauma. No tenderness palpation. Neurovascular intact distally. Left lower extremity: Atraumatic. No visible signs of trauma. No tenderness palpation. Neurovascular intact distally. Atraumatic, neurovascularly intact distally in all extremities, pelvis is stable , hips with full range of motion, moves all extremities freely. NEURO/PSYCH: Alert and oriented x 3, GCS 15, normal mood and affect, normal motor sensory exam. Constitutional: Initial Vital Signs Temperature (C) 36.9 C 07/20/17 15:09 Heart Rate 94 07/20/17 15:09 Respiratory Rate 16 07/20/17 15:09 Blood Pressure 117/80 07/20/17 15:09 O2 Sat (%) 91 L 07/20/17 15:09 O2 Delivery Mode Nasal Cannula O2 (L/minute) 2 Allergies/Adverse Reactions: Penicillins Allergy (Severe, Verified 09/03/16 12:29) Anaphylaxis meperidine HCl [From Demerol] Allergy (Mild, Verified 09/03/16 12:29) SITE RASH atenolol Allergy (Verified 10/26/16 15:09) Wheezing hydrocodone bitartrate [From Lortab] Allergy (Verified 10/26/16 15:09) Itching morphine Allergy (Verified 10/26/16 15:09) Rash venom-honey bee [bee venom (honey bee)] Allergy (Verified 10/26/16 15:09) Anaphylaxis Home Medications: Medication Instructions Recorded Baclofen [Baclofen 10 mg (*)] 30 mg PO TID 09/03/16 Escitalopram Oxalate [Lexapro] 20 mg PO DAILY 09/03/16 Losartan/Hydrochlorothiazide 1 each PO DAILY 09/03/16 [Losartan-Hctz 100-25 mg Tab] Topiramate [Topamax 100MG (*)] 200 mg PO DAILY 09/03/16 clonazePAM [Klonopin (*)] 0.5 mg PO DAILY 09/03/16 hydrOXYzine HCL [Vistaril 25MG] 25 mg PO QID PRN 09/03/16 oxyCODONE IR [Oxycodone Ir (*)] 5 mg PO TID PRN 09/03/16 Calcium Carb W/Vit D [Calcium Carb 500 mg PO BID 07/20/17 W/Vit D 500/200 (*)] Ferrous Sulfate [Ferrous Sulf 325 325 mg PO DAILY 07/20/17 MG (*)] Herbals/Supplements -Info Only 1 tab PO DAILY 07/20/17 Multivitamins [Multivitamin (*)] 1 tab PO DAILY 07/20/17 Pregabalin [LYRICA] 200 mg PO BID 07/20/17 Medical Decision Making - Diagnostics Imaging Results: Imaging Impressions Cervical Spine CT 07/20/17 15:12 Impression: Scalp wound in the right frontal and parietal scalp. No evidence for skull fracture. No evidence for acute intracranial abnormality. CT Cervical Spine Without Contrast History: Trauma. Fall. Technique: 1.5 mm helical images were obtained of the cervical spine without contrast. Multiplanar evaluation was performed at the workstation. Radiation dose reduction technique was utilized. Findings: A nondisplaced fracture is seen in the left occipital condyle. 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 No other findings for a fracture. Disk height narrowing and osteophytosis of C3-C4, C4-C5 , C5-C6, and C6-C7. No significant spondylolisthesis. No evidence for prevertebral soft tissue swelling. Degenerative change is seen in the anterior arch of C1 articulation with the dens. There is mild to moderate bilateral neural foraminal narrowing and mild spinal canal narrowing at C3-C4, C4-C5, C5- C6, and C6-C7. Impression: 1. Nondisplaced fracture of the left occipital condyle. 2. 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 3. Multilevel degenerative disk and degenerative joint disease of the cervical spine at C3-C4 through C6-C7. Results called and discussed with Dr. Jacque Cole on 07/20/2017, 16:44. Chest X-Ray 07/20/17 15:12 Impression: No evidence for acute cardiopulmonary abnormality. Head CT 07/20/17 15:12 Impression: Scalp wound in the right frontal and parietal scalp. No evidence for skull fracture. No evidence for acute intracranial abnormality. CT Cervical Spine Without Contrast History: Trauma. Fall. Technique: 1.5 mm helical images were obtained of the cervical spine without contrast. Multiplanar evaluation was performed at the workstation. Radiation dose reduction technique was utilized. Findings: A nondisplaced fracture is seen in the left occipital condyle. 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 No other findings for a fracture. Disk height narrowing and osteophytosis of C3-C4, C4-C5 , C5-C6, and C6-C7. No significant spondylolisthesis. No evidence for prevertebral soft tissue swelling. Degenerative change is seen in the anterior arch of C1 articulation with the dens. There is mild to moderate bilateral neural foraminal narrowing and mild spinal canal narrowing at C3-C4, C4-C5, C5- C6, and C6-C7. Impression: 1. Nondisplaced fracture of the left occipital condyle. 2. 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 3. Multilevel degenerative disk and degenerative joint disease of the cervical spine at C3-C4 through C6-C7. Results called and discussed with Dr. Jacque Cole on 07/20/2017, 16:44. Shoulder X-Ray 07/20/17 15:12 Impression: Mildly displaced fracture of the distal left clavicle. Humerus X-Ray 07/20/17 15:13 Impression: No evidence for fracture of the humerus. There is a mildly displaced fracture of the distal clavicle and comminuted fracture of the mid diaphysis of the ulna included in the [id number]. Forearm X-Ray 07/20/17 15:14 Impression: Mildly comminuted and angulated fracture of mid diaphysis, left ulna. Knee X-Ray 07/20/17 16:20 Impression: Moderate degenerative change of medial and patellofemoral compartment of left knee. Hand X-Ray 07/20/17 17:23 Impression: No evidence for acute fracture of the right hand. ED Course/Re-evaluation: In the emergency department I met EMS on arrival. The patient was limited trauma activation. I took report from the entry level electrician. I discussed the plan with the patient. I answered all her questions. Patient was removed from the air splint. C-spine precautions were maintained. Laboratory studies, head CT, C-spine CT, chest x-ray, left arm x-rays were ordered. Patient was given fentanyl IV for pain and Zofran for nausea. Head CT/C-spine CT: Please refer the dictated report by Dr. Pinto. No intracranial bleed. The patient does have a fracture of the base of her occiput. The C-spine has degenerative change but otherwise intact. Left forearm x-ray: The patient has a midshaft comminuted ulna fracture with mild angulation. Left shoulder x-ray: The patient has a distal left clavicle fracture. Chest x-ray: A noted clavicle fracture. No pneumothorax or hemothorax. I discussed the results with the patient. I answered all her questions. She was placed in a [employer] Glass splint by the [facility]. She is placed in a shoulder sling for clavicle fracture. She is placed in a Kari collar to maintain her C-spine precautions. 1640: I discussed the case with Dr. Palmer from trauma. He will admit the patient for further care. 1645: I discussed the case with Dr. Kaur from [place]surgery[place] [address]. Hematocrit was low at 34. Platelets were normal at 282. Patient's chemistry panel was notable for a low carbon dioxide of 20. Her creatinine was 0.8 Patient was given fentanyl for pain control. Dr. Kaur was in the emergency department. We discussed the care plan. The patient is to be left in cervical collar. I discussed the case with Dr. Palmer when he came to the emergency department. I rechecked the patient on numerous occasions. She complained of right hand pain on repeat exam. Right hand x-ray was added. Hand x-ray: Please refer the dictated report. No fracture. I discussed the results with the patient. I answered her questions. Patient had her wound thoroughly cleaned numerous times by the [facility] and the PA. Please refer to the PAs procedure note. I discussed the wound with Dr. Palmer. He recommended irrigation and loose closure due to the contamination. Differential Diagnosis: My differential includes but is not limited to laceration, concussion, skull fracture, subarachnoid hemorrhage, subdural hematoma, epidural hematoma, spinal injury, shoulder fracture, dislocation, arm fracture, dislocation - Data Points Laboratory Results: Laboratory Results 07/20/17 17:00 07/20/17 17:00 07/20/17 07/20/17 07/20/17 17:00 17:00 17:00 WBC 17.78 10^3/uL H 10^3/uL (3.80-9.50) RBC 3.55 10^6/uL L 10^6/uL (4.18-5.33) Hgb 11.7 g/dL L g/dL (12.6-16.3) Hct 34.8 % L % (38.0-47.0) MCV 98.0 fL fL (81.5-99.8) MCH 33.0 pg pg (27.9-34.1) MCHC 33.6 g/dL g/dL (32.4-36.7) RDW 14.1 % % (11.5-15.2) Plt Count 282 10^3/uL 10^3/uL (150-400) MPV 9.8 fL fL (8.7-11.7) Neut % (Auto) 87.6 % H % (39.3-74.2) Lymph % (Auto) 6.3 % L % (15.0-45.0) Nelson % (Auto) 5.2 % % (4.5-13.0) Eos % (Auto) 0.0 % L % (0.6-7.6) Baso % (Auto) 0.2 % L % (0.3-1.7) Nucleat RBC Rel Count 0.0 % % (0.0-0.2) Absolute Neuts (auto) 15.59 10^3/uL H 10^3/uL (1.70-6.50) Absolute Lymphs (auto) 1.12 10^3/uL 10^3/uL (1.00-3.00) Absolute Monos (auto) 0.92 10^3/uL H 10^3/uL (0.30-0.80) Absolute Eos (auto) 0.00 10^3/uL L 10^3/uL (0.03-0.40) Absolute Basos (auto) 0.03 10^3/uL 10^3/uL (0.02-0.10) Absolute Nucleated RBC 0.00 10^3/uL 10^3/uL (0-0.01) Immature Gran % 0.7 % % (0.0-1.1) Immature Gran # 0.12 10^3/uL H 10^3/uL (0.00-0.10) PT 14.7 SEC SEC (12.0-15.0) INR 1.13 (0.83-1.16) APTT 26.1 SEC SEC (23.0-38.0) Sodium 144 mEq/L mEq/L (135-145) Potassium 3.7 mEq/L mEq/L (3.5-5.2) Chloride 112 mEq/L H mEq/L (97-110) Carbon Dioxide 20 mEq/l L mEq/l (22-31) Anion Gap 12 mEq/L mEq/L (8-16) BUN 19 mg/dL mg/dL (7-23) Creatinine 0.8 mg/dL mg/dL (0.6-1.0) Estimated GFR > 60 Glucose 122 mg/dL H mg/dL (70-100) Calcium 10.0 mg/dL mg/dL (8.5-10.4) Medications Given: Discontinued Medications Fentanyl (Sublimaze) 75 mcg IVP EDNOW ONE Stop: 07/20/17 15:09 Last Admin: 07/20/17 17:00 Dose: 50 mcg Fentanyl (Sublimaze) 50 mcg IVP EDNOW ONE Stop: 07/20/17 16:11 Last Admin: 07/20/17 16:12 Dose: 50 mcg Fentanyl (Sublimaze) 50 mcg IVP EDNOW ONE Stop: 07/20/17 16:56 Last Admin: 07/20/17 17:06 Dose: 50 mcg Fentanyl (Sublimaze) 50 mcg IVP EDNOW ONE Stop: 07/20/17 18:28 Last Admin: 07/20/17 18:34 Dose: 50 mcg Sodium Chloride (Ns) 500 mls @ 0 mls/hr IV ONCE ONE; Wide Open PRN Reason: Protocol Stop: 07/20/17 15:13 Last Admin: 07/20/17 17:02 Dose: 500 mls Ondansetron HCl (Zofran) 4 mg IVP EDNOW ONE Stop: 07/20/17 15:09 Last Admin: 07/20/17 15:26 Dose: 4 mg Departure - Departure Disposition: [facility] Acute Clinical Impression: Scalp laceration Qualifiers: Encounter type: initial encounter Qualified Code(s): S01.01XA - Laceration without foreign body of scalp, initial encounter Head injury Qualifiers: Encounter type: initial encounter Qualified Code(s): S09.90XA - Unspecified injury of head, initial encounter Ulnar fracture Qualifiers: Encounter type: initial encounter Ulna location: shaft Fracture type: closed Fracture morphology: comminuted Fracture alignment: displaced Laterality: left Qualified Code(s): S52.252A - Displaced comminuted fracture of shaft of ulna, left arm, initial encounter for closed fracture Condition: Good
[2017-07-20] MEDS: ONDANSETRON 4 MG/2 ML VIAL IVP ONE (15:26)
[2017-07-20] MEDS: fentaNYL 100 MCG/2 ML INJ IVP ONE ×2 (15:27→17:00)
[2017-07-20] MEDS ORDERED: fentaNYL 100 MCG/2 ML INJ IVP ONE ×3 (16:10→18:27)
[2017-07-20] MEDS ORDERED: fentaNYL 100 MCG/2 ML INJ ONE (16:11)
[2017-07-20 17:12] LABS: PLATELET COUNT 282 10^3/uL (150-400)
[2017-07-20 17:22] LABS: INR 1.13 (0.83-1.16); PROTIME(PATIENT) 14.7 SEC (12.0-15.0)
--- NOTE | 2017-07-20 17:29 | PDGENHP ---
History and Physical - Chief Complaint Trauma: Left forearm/shoulder pain, paresthesias in b/l upper extremities - History of Present Illness This is a 57-year-old woman with a history of Ykyzycg-Zrirp-Ylsvl who presents to the hospital after fall while hiking. The patient fell down removing it was witnessed. The patient did not lose consciousness. The patient complains of pain in her left arm and shoulder as well as paresthesias in both arms. She has abrasions along her right flank and abdomen. She also sustained a stellate right frontal temporal laceration. The patient was brought in by emergency medical services after extraction. She was found have left forearm fracture, distal left clavicle fracture and a nondisplaced left occipital fracture. History Information - Allergies/Home Medication List Allergies/Adverse Reactions: Penicillins Allergy (Severe, Verified 09/03/16 12:29) Anaphylaxis meperidine HCl [From Demerol] Allergy (Mild, Verified 09/03/16 12:29) SITE RASH atenolol Allergy (Verified 10/26/16 15:09) Wheezing hydrocodone bitartrate [From Lortab] Allergy (Verified 10/26/16 15:09) Itching morphine Allergy (Verified 10/26/16 15:09) Rash venom-honey bee [bee venom (honey bee)] Allergy (Verified 10/26/16 15:09) Anaphylaxis Home Medications: Baclofen [Baclofen 10 mg (*)] 30 mg PO TID 09/03/16 [Last Taken 10/28/16 19:00] Escitalopram Oxalate [Lexapro] 20 mg PO DAILY 09/03/16 [Last Taken 10/28/16 08: 00] Losartan/Hydrochlorothiazide [Losartan-Hctz 100-25 mg Tab] 1 each PO DAILY 09/03 [Last Taken 10/28/16] Pregabalin [Lyrica 75mg (*)] 75 mg PO BID PRN 09/03/16 [Last Taken 10/24/16] Topiramate [Topamax 100MG (*)] 200 mg PO DAILY 09/03/16 [Last Taken 10/28/16] clonazePAM [Klonopin (*)] 0.5 mg PO DAILY 09/03/16 [Last Taken 10/28/16 09:00] hydrOXYzine HCL [Vistaril 25MG] 25 mg PO QID PRN 09/03/16 [Last Taken 10/28/16] oxyCODONE IR [Oxycodone Ir (*)] 5 mg PO TID PRN 09/03/16 [Last Taken 10/22/16] I have personally reviewed and updated: family history, medical history, social history, surgical history - Past Medical History Additional medical history: Qdkqtxa-Jzckr-Rymqy. BRCA mutation - Surgical History Additional surgical history: Bilateral mastectomy with reconstruction, Mario fundoplication and paraesophageal hernia repair, multiple foot surgeries - Family History Additional family history: BRCA - Social History Smoking Status: Never smoked Alcohol Use: Sober Drug Use: None Review of Systems Review of Systems: ROS: 10pt was reviewed & negative except for what was stated in HPI & below Constitutional: Reports: weakness EENMT: Reports: other (Hearing loss) Muscolosketal: Reports: muscle stiffness Neurological: Reports: paresthesia, tingling Physical Exam Physical Exam: Alert and oriented x3 Stellate laceration right temporal region measures 6 cm x 2 cm for Pupils 3 mm reactive Bite intact Trachea midline Mild posterior neck tenderness Collar in place Left shoulder deformity mild consistent with clavicular fracture Ulnar gutter splint being placed on the left hand distally neurovascularly intact Clear to auscultation bilaterally Regular rate and rhythm Abdomen soft nontender nondistended well-healed scars Multiple abrasions on abdomen and flank on the right Right hand swelling abrasion and bruising No other extremity deformities Temp Pulse Resp BP Pulse Ox 36.9 C 86 16 127/89 H 99 07/20/17 17:16 07/20/17 17:16 07/20/17 17:16 07/20/17 17:16 07/20/17 17:16 O2 (L/minute) 2 Peripheral Pulses: 2+: carotid (R), carotid (L), femoral (R), femoral (L), dorsalis-pedis (R), dorsalis-pedis (L) Respiratory: No expiratory wheeze Lab Data & Imaging Review 07/20/17 17:00 07/20/17 17:00 WBC 17.78 10^3/uL (3.80-9.50) H 07/20/17 17:00 RBC 3.55 10^6/uL (4.18-5.33) L 07/20/17 17:00 Hgb 11.7 g/dL (12.6-16.3) L 07/20/17 17:00 Hct 34.8 % (38.0-47.0) L 07/20/17 17:00 MCV 98.0 fL (81.5-99.8) 07/20/17 17:00 MCH 33.0 pg (27.9-34.1) 07/20/17 17:00 MCHC 33.6 g/dL (32.4-36.7) 07/20/17 17:00 RDW 14.1 % (11.5-15.2) 07/20/17 17:00 Plt Count 282 10^3/uL (150-400) 07/20/17 17:00 MPV 9.8 fL (8.7-11.7) 07/20/17 17:00 Neut % (Auto) 87.6 % (39.3-74.2) H 07/20/17 17:00 Lymph % (Auto) 6.3 % (15.0-45.0) L 07/20/17 17:00 Crowley % (Auto) 5.2 % (4.5-13.0) 07/20/17 17:00 Eos % (Auto) 0.0 % (0.6-7.6) L 07/20/17 17:00 Baso % (Auto) 0.2 % (0.3-1.7) L 07/20/17 17:00 Nucleat RBC Rel Count 0.0 % (0.0-0.2) 07/20/17 17:00 Absolute Neuts (auto) 15.59 10^3/uL (1.70-6.50) H 07/20/17 17:00 Absolute Lymphs (auto) 1.12 10^3/uL (1.00-3.00) 07/20/17 17:00 Absolute Monos (auto) 0.92 10^3/uL (0.30-0.80) H 07/20/17 17:00 Absolute Eos (auto) 0.00 10^3/uL (0.03-0.40) L 07/20/17 17:00 Absolute Basos (auto) 0.03 10^3/uL (0.02-0.10) 07/20/17 17:00 Absolute Nucleated RBC 0.00 10^3/uL (0-0.01) 07/20/17 17:00 Immature Gran % 0.7 % (0.0-1.1) 07/20/17 17:00 Immature Gran # 0.12 10^3/uL (0.00-0.10) H 07/20/17 17:00 PT 14.7 SEC (12.0-15.0) 07/20/17 17:00 INR 1.13 (0.83-1.16) 07/20/17 17:00 APTT 26.1 SEC (23.0-38.0) 07/20/17 17:00 Imaging Review: Imaging Impressions Cervical Spine CT 07/20/17 15:12 Impression: Scalp wound in the right frontal and parietal scalp. No evidence for skull fracture. No evidence for acute intracranial abnormality. CT Cervical Spine Without Contrast History: Trauma. Fall. Technique: 1.5 mm helical images were obtained of the cervical spine without contrast. Multiplanar evaluation was performed at the workstation. Radiation dose reduction technique was utilized. Findings: A nondisplaced fracture is seen in the left occipital condyle. 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 No other findings for a fracture. Disk height narrowing and osteophytosis of C3-C4, C4-C5 , C5-C6, and C6-C7. No significant spondylolisthesis. No evidence for prevertebral soft tissue swelling. Degenerative change is seen in the anterior arch of C1 articulation with the dens. There is mild to moderate bilateral neural foraminal narrowing and mild spinal canal narrowing at C3-C4, C4-C5, C5- C6, and C6-C7. Impression: 1. Nondisplaced fracture of the left occipital condyle. 2. 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 3. Multilevel degenerative disk and degenerative joint disease of the cervical spine at C3-C4 through C6-C7. Results called and discussed with Dr. Jacque Cole on 07/20/2017, 16:44. Chest X-Ray 07/20/17 15:12 Impression: No evidence for acute cardiopulmonary abnormality. Head CT 07/20/17 15:12 Impression: Scalp wound in the right frontal and parietal scalp. No evidence for skull fracture. No evidence for acute intracranial abnormality. CT Cervical Spine Without Contrast History: Trauma. Fall. Technique: 1.5 mm helical images were obtained of the cervical spine without contrast. Multiplanar evaluation was performed at the workstation. Radiation dose reduction technique was utilized. Findings: A nondisplaced fracture is seen in the left occipital condyle. 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 No other findings for a fracture. Disk height narrowing and osteophytosis of C3-C4, C4-C5 , C5-C6, and C6-C7. No significant spondylolisthesis. No evidence for prevertebral soft tissue swelling. Degenerative change is seen in the anterior arch of C1 articulation with the dens. There is mild to moderate bilateral neural foraminal narrowing and mild spinal canal narrowing at C3-C4, C4-C5, C5- C6, and C6-C7. Impression: 1. Nondisplaced fracture of the left occipital condyle. 2. 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 3. Multilevel degenerative disk and degenerative joint disease of the cervical spine at C3-C4 through C6-C7. Results called and discussed with Dr. Jacque Cole on 07/20/2017, 16:44. Shoulder X-Ray 07/20/17 15:12 Impression: Mildly displaced fracture of the distal left clavicle. Humerus X-Ray 07/20/17 15:13 Impression: No evidence for fracture of the humerus. There is a mildly displaced fracture of the distal clavicle and comminuted fracture of the mid diaphysis of the ulna included in the [id number]. Forearm X-Ray 07/20/17 15:14 Impression: Mildly comminuted and angulated fracture of mid diaphysis, left ulna. Knee X-Ray 07/20/17 16:20 Impression: Moderate degenerative change of medial and patellofemoral compartment of left knee. Visualized and Interpreted Chest x-ray results: Yes Assessment & Plan Assessment: Head injury (Acute) Occipital fracture left nondisplaced Scalp laceration (Acute) Ulnar fracture (Acute) Left clavicular fracture Plan: [facility] to [facility] for nondisplaced occipital fx neurosurgery consultation Dr. Reyes Ulnar gutter splint orthopedic surgery consult Dr. Wallace Wound closure in the emergency room Right hand x-ray pending PT OT Regular diet
[2017-07-20] MEDS ORDERED: NALOXONE HCL 0.4 MG/ML INJ IVP PRN (17:35)
--- NOTE | 2017-07-20 17:35 | GCON ---
[f rep st] CONSULTATION DATE OF CONSULTATION: 07/20/2017 REASON FOR CONSULTATION: Left upper extremity injuries. HISTORY OF PRESENT ILLNESS: Patient is a 57-year-old, right-hand dominant woman who sustained a fall down a hill. She sustained occiput injury. Orthopedic injuries consisted of her left shoulder and left forearm. EXAMINATION: Relative to her consultation, there is tenderness and a palpable "fracture" along the m id aspect of her left ulna. She has minimal tenderness at her distal or proximal radioulnar joints. She is able to bend her wrist and elbow gently. Her distal neurovascular exam is grossly intact. S he is additionally tender along the distal aspect of her clavicle. IMAGING: AP and lateral radiographs were performed and show evidence of a mid-diaphyseal ulnar fract ure with mild angulation. There is no evidence of displacement at the distal or proximal radioulnar joints. AP radiograph of her left clavicle shows a minimally superiorly displaced distal clavicle fracture. ASSESSMENT: 1. Left "night stick" ulna fracture. 2. Left distal clavicle fracture. PLAN: It is recommended that a nonoperative treatment option be pursued for both these. Regarding t he ulna, she is placed in an ulnar gutter splint. She will be placed in a sling for her clavicle fra cture. Followup would be in approximately 1 week. /[id number]/MODL
--- NOTE | 2017-07-20 18:22 | PDMN ---
Medical Necessity Medical necessity: C/M review: est. > 2 MN LOS for eval and TX of acute - head injury, occipital fracture left nondisplaced, scalp laceration, left ulnar fracture, left clavicular fracture requiring scalp wound closure in ED, Neurosurgery consult, Orthopedic consult, planned Rehab eval consult, ongoing [facility] cervical collar, left ulnar gutter splint, frequent neuro checks, pain management, acute inpt PT/OT/ST, comorbid fall while hiking just prior to this admission, comorbid history of Rguaxqg-Iwvym-Bljwo, BRCA mutation per H/P.
[2017-07-20] MEDS: oxyCODONE IR 5 MG TAB PO PRN (20:32)
[2017-07-20] MEDS ORDERED: hydrOXYzine HCL 25 MG TAB PO PRN (21:11)
--- NOTE | 2017-07-20 21:11 | GCON ---
[f rep st] CONSULTATION NEUROSURGERY CONSULTATION DATE OF CONSULTATION: 07/20/2017 REASON FOR CONSULTATION: Left occipital condyle fracture. HISTORY OF PRESENT ILLNESS: The patient is a 57-year-old female with history of Nheufwi-Zdmst-Xxgmf, who presents to the hospital after a fall while hiking. It was a witnessed fall. She did not lose consciousness. She was complaining of pain in her left arm and shoulder as well as paresthesias in b oth arms. She was found have abrasions along her right flank and abdomen. She was found to have a l eft nondisplaced type I occipital condyle fracture. For this, I am consulted. She has no complaints on my interview. Her significant other is present with a service dog in his arms. PAST MEDICAL AND SURGICAL HISTORY: Per HPI, Onvqthv-Wrqyp-Mkppu syndrome, BRCA mutation, bilateral m astectomy with reconstruction, Mario fundoplication, paraesophageal hernia repair, and multiple foot surgeries. CODE STATUS: Full. ALLERGIES: Penicillins, meperidine, atenolol, hydrocodone, morphine, and honey bee venom. MEDICATIONS: Home medications are baclofen, Lexapro, losartan, hydrochlorothiazide, pregabalin, Topa max, Klonopin, hydroxyzine, and oxycodone. FAMILY HISTORY: She has a history of the BRCA mutation. SOCIAL HISTORY: Denies smoking, drinking, or illicit drug abuse. REVIEW OF SYSTEMS: Ten points reviewed and negative other than mentioned HPI. PHYSICAL EXAMINATION: VITAL SIGNS: Afebrile at 36.9, blood pressure is 117/80, heart rate is 94, re spiratory rate 16, saturating 91% on room air. NEUROLOGIC: The patient is awake, alert, and oriente d x3 and appears her stated age. She is lying flat on her gurney with her lacerations being tended t o by the nurses, but she is in no acute distress. She is able to communicate freely. She has normal cranial nerves and a nonfocal neurologic exam with normal strength and sensation and normal reflexes . LABS: White blood cell count 17.7, hemoglobin 11.7, platelets are 282. INR is 1.13. Sodium is 144, potassium is 3.7, BUN is 19, creatinine 0.8, glucose 122. Review of imaging: I reviewed the patient's head CT and CT of the cervical spine and agree she has a nondisplaced left occipital condyle fracture, which is a type I. IMPRESSION AND PLAN: A 57-year-old female with a fall when hiking with Kfimtvm-Dccpx-Kwbll syndrome. She has a nondisplaced left occipital condyle fracture. She has no neurologic complaints or neck p ain. She is neurologically intact. The patient can wear a hard external cervical collar and follow up with me in 4 weeks. There is no need for more imaging. She can be dispositioned from my standpoi nt. She can receive deep venous thrombosis prophylaxis from my standpoint. No further imaging is ne eded. I am following peripherally. I will see the patient in 4 weeks in my office. /[id number]/MODL
[2017-07-20] MEDS: HYDROmorphone HCL/NS 0.5 MG/ML SYR IVP PRN (22:53)
[2017-07-20] MEDS: BACLOFEN 20 MG TAB PO SCH (22:54)
[2017-07-20] MEDS ORDERED: PREGABALIN 100 MG CAP PO ONE (23:00)
[2017-07-20] MEDS: FAMOTIDINE 20 MG/NACL 50 ML IV SCH (23:04)
[2017-07-21] MEDS: oxyCODONE IR 5 MG TAB PO PRN ×5 (00:54→20:43)
[2017-07-21] MEDS: HYDROmorphone HCL/NS 0.5 MG/ML SYR IVP PRN ×5 (01:44→22:29)
[2017-07-21] MEDS: ONDANSETRON 4 MG/2 ML VIAL IVP PRN (02:46)
[2017-07-21] MEDS: BACLOFEN 20 MG TAB PO SCH ×3 (08:10→20:43)
[2017-07-21] MEDS: ESCITALOPRAM OXALATE 10 MG TAB PO SCH (08:11)
[2017-07-21] MEDS: CALCIUM CARB W/VIT D 500 MG TAB PO SCH ×2 (08:11→20:16)
[2017-07-21] MEDS: TOPIRAMATE 100 MG TAB PO SCH (08:11)
[2017-07-21] MEDS: clonazePAM 0.5 MG TAB PO SCH (08:11)
[2017-07-21] MEDS: PREGABALIN 100 MG CAP PO SCH ×2 (08:11→20:15)
[2017-07-21] MEDS: FAMOTIDINE 20 MG/NACL 50 ML IV SCH (08:12)
[2017-07-21] MEDS: ENOXAPARIN 40 MG/0.4 ML SYR SC SCH (08:12)
[2017-07-21] MEDS: FERROUS SULFATE 325 MG TAB PO SCH (08:12)
[2017-07-21] MEDS ORDERED: LOSARTAN/HCTZ 50/12.5 1 TAB PO SCH (09:00)
--- NOTE | 2017-07-21 10:52 | ASMTCMCOM ---
CM Note CM Note Notes: Patient admitted with multiple fractures after sustaining a fall while hiking. She has been admitted to the trauma service and consults for ortho and neurosurgery were placed. Neurosurgery has seen and recommends a hard cervical collar and outpatient follow up in 4 weeks. Orders for PT/OT/TILTING HEAD BAND SAWYER and inpatient rehab evaluations were also placed. Per stripper soft plastic staff, additional information regarding the cause of patient's fall was revealed when she arrived to the floor. Patient was accompanied by her boyfriend/roommate Suleman Musa, and she indicated to staff that she felt unsafe in his presence. Staff called the non-emergent [facility] dispatch line and two officers arrived shortly therafter. Suleman was peacefully escorted out of the room. A case, [id number], was assigned. This morning, Officer Enio Mello was here to speak with patient and informed us that he will be going to patient's home to speak with the boyfriend/roommate. [facility] will stay in touch with us regarding the case. In the meantime, Suleman Musa is not allowed to visit patient in the hospital, nor should we be sharing any information with him over the phone. With patient's permission, I called her son Rc who lives in [place]. He was very concerned since he'd seen a [employer] article that said patient had "life threatening injuries." I assured him that patient was in stable condition and able to communicate with him. He said he will call her and also inform his brother Mark. Both phone numbers were updated in patient's chart and written on the white board in her room. I spoke with patient briefly, she was tearful and complaining of pain. She is frustrated that she does not have her phone or glasses and wondered if Suleman could bring them. I reminded her that she requested that Suleman leave the hopsital and that she is involved in a police investigation. I encouraged her to focus on healing and call her sons for support. Case Management will follow, needs TBD. Date Signed: 07/21/2017 10:52 AM Electronically Signed By:Neyda Leahy RN
--- NOTE | 2017-07-21 12:35 | TRAUMAPN ---
Trauma Progress Note Assessment/Plan: 57 yo with charcot-annette tooth occipital condyle fx - seen by Dr. Kaur, collar for 4 weeks L ulna fracture - splint, seen by Dr. Wallace L clavicle fx - sling for comfort - both non op Has pain down right leg MRI L spine, was scheduled to get MRI c spine as outpatient, will add this Pain on L knee, difficulty with movement and strength. x rays negative. Will get MRI L knee Regular diet tertiary survey performed Pt vocalized concerns that she was [place] the [place]. Has no recollection of event. Specifically denies using drugs or alcohol for 10 years. SW and police involved S: Still in pain. Concerned about r leg, sciatic pain, left knee Objective: Vital Signs Temp Pulse Resp BP Pulse Ox 37.8 C 96 16 111/64 96 07/21/17 11:19 18 11:19 07/21/17 11:19 07/21/17 11:19 07/21/17 11:19 07/20/1718 07/22/17 05:59 05:59 05:59 Intake Total 575 Output Total 200 Balance 375 PT 14.7 SEC (12.0-15.0) 07/20/17 17:00 INR 1.13 (0.83-1.16) 07/20/17 17:00 Physical Exam - Physical Exam General Appearance: WD/WN, alert, no apparent distress EENT: PERRL/EOMI, No scleral icterus (R), No scleral icterus (L), No hearing deficit Neck: other (in collar) Respiratory: lungs clear, normal breath sounds Cardiac/Chest: regular rate, rhythm Abdomen: normal bowel sounds, non-tender, soft Skin: normal color, warm/dry Extremities: other (l arm in splint and sling. Pain with anterior drawer on L knee. No other abnormalities noted) Neuro/Psych: no motor/sensory deficits
[2017-07-21] MEDS: FAMOTIDINE 20 MG TAB PO SCH (20:15)
[2017-07-22] MEDS: oxyCODONE IR 5 MG TAB PO PRN ×5 (03:37→21:54)
[2017-07-22] MEDS: ONDANSETRON 4 MG/2 ML VIAL IVP PRN ×2 (03:46→09:15)
[2017-07-22] MEDS: ACETAMINOPHEN 325 MG TAB PO PRN ×2 (04:06→16:14)
[2017-07-22 04:43] LABS: PLATELET COUNT 172 10^3/uL (150-400)
[2017-07-22] MEDS: FERROUS SULFATE 325 MG TAB PO SCH (08:00)
[2017-07-22] MEDS: BACLOFEN 20 MG TAB PO SCH ×3 (08:00→21:55)
[2017-07-22] MEDS: ESCITALOPRAM OXALATE 10 MG TAB PO SCH (08:00)
[2017-07-22] MEDS: ENOXAPARIN 40 MG/0.4 ML SYR SC SCH (08:00)
[2017-07-22] MEDS: CALCIUM CARB W/VIT D 500 MG TAB PO SCH ×2 (08:00→21:55)
[2017-07-22] MEDS: PREGABALIN 100 MG CAP PO SCH ×2 (08:01→21:55)
[2017-07-22] MEDS: FAMOTIDINE 20 MG TAB PO SCH ×2 (08:01→21:55)
[2017-07-22] MEDS: TOPIRAMATE 100 MG TAB PO SCH (08:01)
[2017-07-22] MEDS: clonazePAM 0.5 MG TAB PO SCH (08:01)
[2017-07-22] MEDS: LOSARTAN POTASSIUM 50 MG TAB PO SCH (08:15)
--- NOTE | 2017-07-22 08:15 | SOAPPROG ---
SOAP Progress Note Assessment/Plan: Assessment: L tibial plateau fx. Pt. previously seen with L ulna and clavicle fx. New c/o L knee pain MRI shows non displaced L tibial plateau fx. Plan: Non op treatment. May be WBAT using hinged knee brace prn for comfort 07/22/17 08:13 Objective: Vital Signs Temp Pulse Resp BP Pulse Ox 36.9 C 81 17 102/68 98 07/22/17 07:59 07/22/17 07:59 07/22/17 07:59 07/22/17 07:59 07/22/17 07:59 Laboratory Results 07/22/17 04:20 07/21/17 07/22/17 07/23/17 05:59 05:59 05:59 Intake Total 575 400 Output Total 200 1550 Balance 375 -1150 PT 14.7 SEC (12.0-15.0) 07/20/17 17:00 INR 1.13 (0.83-1.16) 07/20/17 17:00 ICD10 Worksheet Patient Problems: Problems Problem Status Onset Head injury Acute Scalp laceration Acute Ulnar fracture Acute Alcohol abuse Active Esophagitis Active Gastritis Active Gastrointestinal hemorrhage Active Anemia Acute Metatarsal fracture Acute Pre-syncope Acute Severe anemia Acute Upper GI bleed Acute Urinary tract infection Acute
--- NOTE | 2017-07-22 12:47 | SOAPPROG ---
SOAP Progress Note Assessment/Plan: Assessment: Plan: dc when independant for adl- otherwise will need snf. 07/22/17 12:46 Subjective: pain contro inadequate on only 10 of oxycodone- pt narcotic dependant at home prior to admit. will up to 15 q 4 prn Objective: vss, af lungs clear abd soft forehead lac withoiut erythema. l hinged knee brace in place Vital Signs Temp Pulse Resp BP Pulse Ox 37.4 C 95 17 103/65 97 07/22/17 11:49 07/22/17 11:49 07/22/17 11:49 07/22/17 11:49 07/22/17 11:49 Laboratory Results 07/22/17 04:20 07/21/17 07/22/17 07/23/17 05:59 05:59 05:59 Intake Total 575 400 Output Total 200 1550 Balance 375 -1150 PT 14.7 SEC (12.0-15.0) 07/20/17 17:00 INR 1.13 (0.83-1.16) 07/20/17 17:00 ICD10 Worksheet Patient Problems: Problems Problem Status Onset Head injury Acute Scalp laceration Acute Ulnar fracture Acute Alcohol abuse Active Esophagitis Active Gastritis Active Gastrointestinal hemorrhage Active Anemia Acute Metatarsal fracture Acute Pre-syncope Acute Severe anemia Acute Upper GI bleed Acute Urinary tract infection Acute
[2017-07-22] MEDS: MAGNESIUM HYDROXIDE 30 ML UDCUP PO PRN (12:58)
[2017-07-23] MEDS: ACETAMINOPHEN 325 MG TAB PO PRN ×4 (00:54→20:48)
[2017-07-23] MEDS: oxyCODONE IR 5 MG TAB PO PRN ×4 (01:47→15:54)
[2017-07-23] MEDS ORDERED: BISACODYL 10 MG SUPP PR PRN (07:55)
--- NOTE | 2017-07-23 08:21 | TRAUMAPN ---
Trauma Progress Note Assessment/Plan: 57yo F s/p mech fall c scalp laceration (repaired) Nondisplaced L occipital condyle fx, L clavicle fx, L forearm fx, L tibial plateau fx - Neuro: THRASHER, pain now a 7/10 on increase oxy dose. per NSG collar for 4 weeks for fx - CV: HDS - Pulm, stable on NC, discussed pulm toiler with her again today - Abd: soft, ND, NT. Tolerating diet, bowel regimen added today - Renal: voiding, UOP appropriate - Hb: drifted yesterday, hs hx of chronic anemia and does feel somewhat lightheaded today - Ortho: All fx non op, Arm braced and in sling, brace fitted yesterday for tibial plateau fx. WBAT - Dispo: PT, OT, needs to be more mobile now that her pain is better controlled. Subjective: Pain is 7/10, upset about a lot of things this AM Objective: Vital Signs Temp Pulse Resp BP Pulse Ox 37.8 C 97 16 154/89 H 93 07/23/17 07:34 07/23/17 07:34 07/23/17 07:34 07/23/17 07:34 07/23/17 07:34 Laboratory Results 07/22/17 04:20 07/22/17 07/23/17 07/24/17 05:59 05:59 05:59 Intake Total 400 450 Output Total 1550 875 100 Balance -1150 -425 -100 PT 14.7 SEC (12.0-15.0) 07/20/17 17:00 INR 1.13 (0.83-1.16) 07/20/17 17:00
[2017-07-23] MEDS: BACLOFEN 20 MG TAB PO SCH ×3 (08:45→22:55)
[2017-07-23] MEDS: CALCIUM CARB W/VIT D 500 MG TAB PO SCH ×2 (08:46→20:48)
[2017-07-23] MEDS: ENOXAPARIN 40 MG/0.4 ML SYR SC SCH (08:47)
[2017-07-23] MEDS: clonazePAM 0.5 MG TAB PO SCH (08:47)
[2017-07-23] MEDS: ESCITALOPRAM OXALATE 10 MG TAB PO SCH (08:47)
[2017-07-23] MEDS: FERROUS SULFATE 325 MG TAB PO SCH (08:48)
[2017-07-23] MEDS: FAMOTIDINE 20 MG TAB PO SCH ×2 (08:48→20:48)
[2017-07-23] MEDS: LOSARTAN POTASSIUM 50 MG TAB PO SCH (08:49)
[2017-07-23] MEDS: SENNOSIDES/DOCUSATE SODIUM TAB PO SCH ×2 (08:50→20:53)
[2017-07-23] MEDS: TOPIRAMATE 100 MG TAB PO SCH (08:51)
[2017-07-23] MEDS: PREGABALIN 100 MG CAP PO SCH ×2 (09:10→20:48)
[2017-07-23] MEDS: POLYETHYLENE GLYCOL 3350 17 GM PKT PO PRN (15:15)
--- NOTE | 2017-07-23 16:36 | ASMTCMCOM ---
CM Note CM Note Notes: Pt accepted at [facility] inpatient rehab, anticipate d/c tomorrow. Pt asks this CM to update sons; reached sons Aayush and Rc and provided updates. Pt states she currently has no boyfriend and Suleman Musa is her housemate; she is the primary resident. Pt states she will be safe returning home after rehabilitation. CM to follow. Date Signed: 07/23/2017 04:35 PM Electronically Signed By:TIP Kerr
[2017-07-23] MEDS: MAGNESIUM HYDROXIDE 30 ML UDCUP PO PRN (18:06)
[2017-07-23] MEDS ORDERED: NS 1,000 ML IV ONE (20:20)
[2017-07-23 22:15] VITALS: RESP 16
[2017-07-23] MEDS ORDERED: IBUPROFEN 600 MG TAB PO PRN (22:35)
[2017-07-23] MEDS ORDERED: D5W 1/2 NS W/ 20 KCl/L 1,000 ML IV SCH (22:45)
[2017-07-24 07:40] VITALS: O2SAT 95
[2017-07-24] MEDS: CALCIUM CARB W/VIT D 500 MG TAB PO SCH (08:13)
[2017-07-24] MEDS: BACLOFEN 20 MG TAB PO SCH (08:13)
[2017-07-24] MEDS: PREGABALIN 100 MG CAP PO SCH (08:14)
[2017-07-24] MEDS: TOPIRAMATE 100 MG TAB PO SCH (08:14)
[2017-07-24] MEDS: clonazePAM 0.5 MG TAB PO SCH (08:14)
[2017-07-24] MEDS: ENOXAPARIN 40 MG/0.4 ML SYR SC SCH (08:14)
[2017-07-24] MEDS: SENNOSIDES/DOCUSATE SODIUM TAB PO SCH (08:15)
[2017-07-24] MEDS: FAMOTIDINE 20 MG TAB PO SCH (08:15)
[2017-07-24] MEDS: ESCITALOPRAM OXALATE 10 MG TAB PO SCH (08:15)
[2017-07-24] MEDS: FERROUS SULFATE 325 MG TAB PO SCH (08:15)
[2017-07-24] MEDS: ACETAMINOPHEN 325 MG TAB PO PRN ×2 (08:16→14:35)
[2017-07-24] MEDS: LOSARTAN POTASSIUM 50 MG TAB PO SCH (09:29)
[2017-07-24] MEDS: oxyCODONE IR 5 MG TAB PO PRN ×2 (10:32→14:32)
--- NOTE | 2017-07-24 10:47 | SOAPPROG ---
SOAP Progress Note Assessment/Plan: Assessment/Plan: 57 Y F s/p fall while hiking [place] [address]. +nondisplaced L occipital condyle fracture. NS consulted. In hard collar. NS f/ u in 4 weeks. L ulnar fracture and L distal clavicle fracture. Nonoperative per ortho. Ulnar gutter splint and sling. L tibial plateau fracture, nondisplaced. Seen on MRI, not plain films. Ortho aware. In hinged brace for comfort and may WBAT. Stellate forehead/scalp lac. Repaired and cdi. Possible PNA. WBC's down. +fever overnight. Continue IS. Will repeat CXR. Could be contusion/atelectasis. Continue PT/OT. Adjustment to pain meds. Seen and examined with Dr. Hess. Continue hospital stay. S: smiling this am. pain meds help but dose maybe too high. Just finished walking with therapy. IS hurts clavicle but trying. O: alert nad +scalp lac cdi pupils equal and round in hard collar ctab rrr abd soft ext wwp, +L leg in brace. +L arm in splint. 07/24/17 10:41 Objective: Vital Signs Temp Pulse Resp BP Pulse Ox 36.9 C 75 16 102/65 95 07/24/17 07:38 07/24/17 07:38 07/24/17 07:38 07/24/17 09:29 07/24/17 07:38 Laboratory Results 07/23/17 11:04 07/23/17 07/24/17 07/25/17 05:59 05:59 05:59 Intake Total 450 1600 Output Total 875 1800 Balance -425 -200 PT 14.7 SEC (12.0-15.0) 07/20/17 17:00 INR 1.13 (0.83-1.16) 07/20/17 17:00 ICD10 Worksheet Patient Problems: Problems Problem Status Onset Head injury Acute Scalp laceration Acute Ulnar fracture Acute Alcohol abuse Active Esophagitis Active Gastritis Active Gastrointestinal hemorrhage Active Anemia Acute Metatarsal fracture Acute Pre-syncope Acute Severe anemia Acute Upper GI bleed Acute Urinary tract infection Acute
[2017-07-24 11:53] VITALS: BP 113/66; PULSE 85; TEMP 99.7
--- NOTE | 2017-07-24 13:24 | PDIAF ---
- Diagnosis Diagnosis: trauma, multiple injuries Code Status: Full Code - Medication Management Discharge Medications: Medications to Continue on Transfer Baclofen [Baclofen 10 mg (*)] 30 mg PO TID 09/03/16 [Last Taken 07/20/17 09:00] Escitalopram Oxalate [Lexapro] 20 mg PO DAILY 09/03/16 [Last Taken 07/20/17 09: 00] Topiramate [Topamax 100MG (*)] 200 mg PO DAILY 09/03/16 [Last Taken 07/20/17 09: 00] clonazePAM [Klonopin (*)] 0.5 mg PO DAILY 09/03/16 [Last Taken 07/20/17 09:00] hydrOXYzine HCL [Vistaril 25MG] 25 mg PO QID PRN 09/03/16 [Last Taken 07/19/17 21:00] Calcium Carb W/Vit D [Calcium Carb W/Vit D 500/200 (*)] 500 mg PO BID 07/20/17 [ Last Taken 07/20/17 09:00] Ferrous Sulfate [Ferrous Sulf 325 MG (*)] 325 mg PO DAILY 07/20/17 [Last Taken 07/20/17 09:00] Herbals/Supplements -Info Only 1 tab PO DAILY 07/20/17 [Last Taken Unknown] Multivitamins [Multivitamin (*)] 1 tab PO DAILY 07/20/17 [Last Taken 07/20/17 09 :00] Pregabalin [LYRICA] 200 mg PO BID 07/20/17 [Last Taken 07/20/17 09:00] Losartan Potassium [Cozaar 50 mg (*)] 50 mg PO DAILY 07/21/17 [Last Taken Unknown] Ibuprofen [Motrin (*)] 600 mg PO Q6HRS PRN tab 07/24/17 [Last Taken Unknown] Sennosides/Docusate Sodium [Senokot-S] 1 - 2 tab PO BID tab 07/24/17 [Last Taken Unknown] levOFLOXACIN [levAQUIN (*)] 750 mg PO DAILY #7 tab 07/24/17 [Last Taken Unknown] oxyCODONE IR [Oxycodone Ir (*)] 5 - 15 mg PO Q4HRS PRN #30 tab 07/24/17 [Last Taken Unknown] Discharge Medications: Refer to the Discharge Home Medication list for PRN reason. PICC Care - Routine: N/A - Orders Services needed: Registered Nurse, Physical Therapy, Occupational Therapy, Speech Language Pathologist Isolation Type: None Diet Recommendation: no restrictions on diet Diet Texture: Regular Texture Diet Activity/Weight Bearing Restrictions: Weight bear as tolerated. Continue ulnar gutter splint. Continue L arm sling for comfort. Leg brace for comfort. - Follow Up Care Current Providers and Referrals: Aldo Wallace MD [Medical Doctor] - follow up in 1 week Ian Reyes MD [Medical Doctor] - (follow up 4 weeks ) Patient,NotPresent [Unknown] - As per Instructions Nikolay Hess MD [Medical Doctor] - follow up in 1 week (for staple removal and trauma appointment)
--- NOTE | 2017-07-24 14:32 | GDS ---
[f rep st] DISCHARGE SUMMARY DISCHARGE DIAGNOSES: 1. Trauma activation, fall while hiking. 2. Nondisplaced left occipital condyle fracture. 3. History of Xtnsxxs-Yznkf-Vlkxz. 4. Left ulnar fracture. 5. Left distal clavicle fracture. 6. Left nondisplaced tibial plateau fracture. 7. Stellate forehead laceration. 8. Probable atelectasis. CONSULTATIONS: 1. Dr. Ian Reyes, neurosurgery. 2. Dr. Aldo Wallace, orthopedic surgery. SPECIAL TESTS: Please see results for head CT; shoulder, humerus, knee, and hand x-ray; cervical and lumbar spine MRI; and lower extremity MRI. PROCEDURES: None. HOSPITAL COURSE: The patient is a 57-year-old female who was hiking down the [facility] when she tripped and fell. She was admitted through the emergency room to the trauma service. CT scan o f the head showed the scalp wound in the right frontal and parietal scalp, but no evidence for any in tracranial abnormality or fracture. She was found to have a left ulna and clavicle fracture. She co mplained of knee pain; however, knee x-ray was negative. Orthopedic surgery and Neurosurgery were co nsulted. She was placed in a hard collar to be continued for 4 weeks with outpatient followup with Zoey Reyes. She was placed in a sling and ulnar gutter splint for her upper extremity fractures with followup plan with Dr. Wallace in 1 week as an outpatient. The patient complained of persistent knee pain and so an MRI was obtained, which showed a nondisplace d tibial plateau fracture. Per Orthopedic Surgery's recommendations, she was able to weightbear as t olerated and she wore a hinged knee brace for comfort. She saw Physical Therapy and Occupational The rapy. The patient developed a fever. An x-ray was obtained, showing possible early pneumonia versus atelec tasis. She was set up with an incentive spirometer. She was placed on IV Levaquin. Her white count normalized and she had no more fevers and a followup x-ray showed improvement. DISCHARGE INSTRUCTIONS: The patient was discharged to a subacute nursing facility in [facility] with plans for outpatient followup with Dr. Hess for staple removal for her scalp laceration, as w ell as Dr. Reyes and Dr. Wallace per above. She was given prescriptions for oxycodone to be used as needed. She was also continued on oral Levaquin. /[id number]/MODL
[2017-07-24] MEDS: POLYETHYLENE GLYCOL 3350 17 GM PKT PO PRN (14:45)
--- NOTE | 2017-07-24 15:02 | ASMTCMCOM ---
CM Note CM Note Notes: Pt medically stable for d/c to the [facility] inpatient rehab. [place] Medicaid auth is [id number] for Medicaid wc van. Orders to be obtained via [employer]. Date Signed: 07/24/2017 03:01 PM Electronically Signed By:TIP Kerr
--- NOTE | 2017-07-24 16:36 | ASDISCHSUM ---
Discharge Information Plan Status:Inpatient Rehab Medically Cleared to Leave: Discharge Date:07/24/2017 04:04 PM D/C Disposition:[facility] D/C Disposition:[facility] Facility Projected Discharge Date:07/24/2017 11:00 AM Transportation at D/C:Wheelchair Van Discharge Delay Reason: Follow-Up Date:07/24/2017 11:00 AM Discharge Slot: Final Diagnosis: Placement Information Referral Type:Rehabilitation Hospital Referral ID:[id number] Provider Name:[facility] Inpatient Rehab Address 1:[address] Phone Number: Address 2: Fax Number: [facility] Company:[place] Selection Factors: State:[place] Patient Contact Information Contact Name:PRASHANT Relationship:Son Address: Work Phone: City: [facility] Phone: [facility] Code: Email: Financial Information Financial Class:Medicaid Primary Plan Desc:MEDICAID [facility] Primary Plan Number:[id number] Secondary Plan Desc: Secondary Plan Number: Assessment Information [facility] CM Progress Note CM Note CM Note Notes: Patient admitted with multiple fractures after sustaining a fall while hiking. She has been admitted to the trauma service and consults for ortho and neurosurgery were placed. Neurosurgery has seen and recommends a hard cervical collar and outpatient follow up in 4 weeks. Orders for PT/OT/STEEL DIE ENGRAVER and inpatient rehab evaluations were also placed. Per overnight stocker staff, additional information regarding the cause of patient's fall was revealed when she arrived to the floor. Patient was accompanied by her boyfriend/roommate Suleman Musa, and she indicated to staff that she felt unsafe in his presence. Staff called the non-emergent [facility] dispatch line and two officers arrived shortly therafter. Suleman was peacefully escorted out of the room. A case, [id number], was assigned. This morning, Officer Enio Mello was here to speak with patient and informed us that he will be going to patient's home to speak with the boyfriend/roommate. The [facility] will stay in touch with us regarding the case. In the meantime, Suleman Musa is not allowed to visit patient in the hospital, nor should we be sharing any information with him over the phone. With patient's permission, I called her son Rc who lives in [place]. He was very concerned since he'd seen a [employer] article that said patient had "life threatening injuries." I assured him that patient was in stable condition and able to communicate with him. He said he will call her and also inform his brother Mark. Both phone numbers were updated in patient's chart and written on the white board in her room. I spoke with patient briefly, she was tearful and complaining of pain. She is frustrated that she does not have her phone or glasses and wondered if Suleman could bring them. I reminded her that she requested that Suleman leave the hopsital and that she is involved in a police investigation. I encouraged her to focus on healing and call her sons for support. Case Management will follow, needs TBD. Date Signed: 07/21/2017 10:52 AM Electronically Signed By:Neyda Leahy RN [facility] CM Progress Note CM Note CM Note Notes: Pt accepted at [facility] inpatient rehab, anticipate d/c tomorrow. Pt asks this CM to update sons; reached sons Aayush and Rc and provided updates. Pt states she currently has no boyfriend and Suleman Musa is her housemate; she is the primary resident. Pt states she will be safe returning home after rehabilitation. CM to follow. Date Signed: 07/23/2017 04:35 PM Electronically Signed By:TIP Kerr [facility] CM Progress Note CM Note CM Note Notes: Pt medically stable for d/c to the [facility] inpatient rehab. [place] Medicaid auth is [id number] for Medicaid w[place] van. Orders to be obtained via [employer]. Date Signed: 07/24/2017 03:01 PM Electronically Signed By:TIP Kerr Intervention Information
== END 2017-07-24 16:04 | DRG 86 ==
LOC: EDUNIT# → OBSVTOIN 17:35 → F3N 20:15
PROVIDERS: ADMIT Surgery; ATTEND Surgery
PROC: 0PSLXZZ Reposition Left Ulna, External Approach (ICD-10-PCS; principal; 2017-07-20)
DX: S02.11BA Type I occipital condyle fracture, left side, initial encounter for closed fracture (principal); J98.11 Atelectasis; S52.202A Unspecified fracture of shaft of left ulna, initial encounter for closed fracture; S82.145A Nondisplaced bicondylar fracture of left tibia, initial encounter for closed fracture; S42.032A Displaced fracture of lateral end of left clavicle, initial encounter for closed fracture; S01.81XA Laceration without foreign body of other part of head, initial encounter; G60.0 Hereditary motor and sensory neuropathy; W01.0XXA Fall on same level from slipping, tripping and stumbling without subsequent striking against object, initial encounter; Y93.01 Activity, walking, marching and hiking; Y92.828 Other wilderness area as the place of occurrence of the external cause
CPT/HCPCS: 92507-GN; 92523-GN; 96374; 97116-GP; 97162-GP; 97166-GO; 97530-GP; 97535-GO; A4565; J1170; J1650; J1956; J2405; J3010; L1832

== ENCOUNTER 2017-07-24 16:43 | Inpatient (IN) | payer MEDICAID ==
[2017-07-24] MEDS ORDERED: IBUPROFEN 600 MG TAB PO PRN (17:37)
[2017-07-24] MEDS ORDERED: hydrOXYzine HCL 25 MG TAB PO PRN (17:37)
[2017-07-24] MEDS ORDERED: BISACODYL 10 MG SUPP PR PRN (17:48)
[2017-07-24] MEDS: oxyCODONE IR 5 MG TAB PO PRN ×2 (18:32→22:23)
--- NOTE | 2017-07-24 19:53 | GHP ---
[f rep st] HISTORY AND PHYSICAL POST ADMISSION PHYSICIAN EVALUATION AND REHABILITATION TREATMENT PLAN DATE OF ADMISSION: 07/24/2017 DATE OF EVALUATION: 07/24/2017 TIME OF EVALUATION: 1720 REFERRING FACILITY: [facility]. REFERRING PHYSICIAN: Dr. Palmer IMPAIRMENT GROUP: 14.2. DATE OF ONSET: 07/20/2017. CONSULTING PHYSICIANS: She was seen in consultation by Neurosurgery, Dr. Reyes , and orthopedic surgeon, Dr. Wallace. REHABILITATION DIAGNOSIS: Debility status post fall while hiking with multiple fractures. NEUROLOGIC DIAGNOSIS: Brain plus multiple fractures/amputations. HISTORY OF PRESENT ILLNESS: This patient suffered a fall while walking down a steep trail off [facility] in [place]. She apparently tumbled down a ravine. She is unclear whether she lost consciousness. She suffered a scalp laceration and multiple abrasions and was transported to [facility] for further evaluation. There she was diagnosed with a left nondisplaced occipital condyle fracture, a left ulnar fracture, a left clavicle fracture, a nondisplaced left tibial plateau fracture and possible rib fractures. She was also assessed and treated by Speech and Language Pathology for mild traumatic brain injury. She had nonoperative treatment including a cervical collar for the occipital condyle fracture, an ulnar gutter splint for the left forearm, a sling for comfort regarding the left clavicle fracture, and hinged knee brace. She is allowed weightbearing on the left lower extremity. She is nonweightbearing on the left upper extremity. She had pain control with opiate medications as well as ibuprofen. She was rapidly mobilized and able to ambulate with therapies. She had a fever and had serial chest x-rays, which were suggestive of possible early pneumonia, for which she was begun on levofloxacin. Other studies and labs during her stay, she had anemia on admission with a hemoglobin of 11.7 and hematocrit of 30.8. This stabilized at 8.1 and 24.4. She had a high white blood cell count initially at 17.78, and this resolved with white blood cell count on the day before discharge of 6.96. She was macrocytic with an MCV of 101.2. Coagulation studies revealed normal PT and PTT. Serum chemistry on 07/20/2017, showed an elevated chloride at 112, and a low carbon dioxide at 20. Glucose was somewhat high at 122. Otherwise renal function and electrolytes were within normal limits. PRECAUTIONS: She is a fall risk. She has orthopedic precautions with nonweightbearing on the left upper extremity and need to wear a hinged brace on the left lower extremity. ACTIVE COMORBIDITIES: She has no active tier 1, tier 2 or tier 3 comorbidities. PAST MEDICAL HISTORY: 1. Rtyjtif-Uxhqe-Pyzib disease. 2. Upper GI bleed due to hiatal hernia with Ej ulcers. 3. Herpes zoster. 4. Esophageal stricture. 5. History of alcoholism, but sober for 10 years. 6. Irritable bowel syndrome. 7. Chronic pain. 8. Depression. 9. Anxiety. 10. Obstructive sleep apnea. 11. Cholecystitis. 12. Left patellar fracture. 13. Positive BRCA mutation. PAST SURGICAL HISTORY: 1. Bilateral mastectomies done prophylactically. 2. Breast implants. 3. Laparoscopic repair of hiatal hernia. 4. Laparoscopic cholecystectomy. MEDICATIONS: Prior to admission: 1. Baclofen 30 mg p.o. t.i.d. 2. Escitalopram 20 mg p.o. daily. 3. Losartan/hydrochlorothiazide 100/25 one p.o. daily. 4. Topiramate 200 mg p.o. daily. 5. Clonazepam 0.5 mg p.o. daily. 6. Hydroxyzine 25 mg p.o. q.i.d. p.r.n. 7. Oxycodone immediate release 5 mg p.o. t.i.d. p.r.n. 8. Calcium carbonate with vitamin D 500 mg/200 units p.o. b.i.d. 9. Ferrous sulfate 325 mg p.o. daily. 10. Multivitamin 1 p.o. daily. 11. Pregabalin 200 mg p.o. b.i.d. Admission medications: 1. Baclofen 30 mg p.o. t.i.d. 2. Calcium carbonate with vitamin D 500 mg/200 units p.o. b.i.d. 3. Clonazepam 0.5 mg p.o. daily. 4. Escitalopram 20 mg p.o. daily. 5. Ferrous sulfate 325 mg p.o. daily. 6. Ibuprofen 600 mg p.o. q.6 hours p.r.n. 7. Levofloxacin 750 mg p.o. daily. 8. Losartan 50 mg p.o. daily. 9. Multivitamin 1 p.o. daily. 10. Oxycodone IR 5 to 15 mg p.o. q.4 hours p.r.n. 11. Pregabalin 200 mg p.o. b.i.d. 12. Senna/docusate 1 to 2 tabs p.o. b.i.d. 13. Topiramate 200 mg p.o. daily. ALLERGIES: Listed to penicillin with anaphylaxis; meperidine with a rash, atenolol with wheezing, hydrocodone with itching, morphine with a rash, and bee venom with anaphylaxis. PSYCHOSOCIAL HISTORY: She is . She has 2 adult children. She lives with a roommate. She is a nonsmoker. She has a history of alcoholism, but has been sober for 10 years. She worked in [employer] and [employer], but is retired for disability. FAMILY HISTORY: Her father of cancer and was a carrier of the BRCA mutation. Her sister of breast cancer. REVIEW OF SYSTEMS: She complains of pain, which she does not think is adequately controlled. She has constipation and abdominal bloating, and there are no bowel movements recorded in the chart from her recent hospitalization. She has not felt a cough or dyspnea. She has felt febrile, but not currently. She denies chest pain or palpitations. She denies nausea or vomiting. She denies dysuria or urinary frequency. Other than knee pain, she denies joint pain or joint swelling. She has some loss of sensation, especially in the lower extremities. She has been up and ambulating. She has been sleeping well. She reports that she snores. Otherwise, a 10-point review of systems is negative. PHYSICAL EXAMINATION: VITAL SIGNS: Vitals are not yet available in the chart. This morning at the hospital blood pressure is 113/66, heart rate was 85, respiratory rate was 16, oxygen saturation was 95% on room air, though overnight she was hypoxic and required 2 L of oxygen, temperature is 37.6 degrees centigrade. Her weight in the hospital was recorded at 62.1 kg for a body mass index of 23.5, but either her height is recorded wrong or her weight is recorded wrong, as she is morphologically obese. GENERAL: This is a well- nourished, well-developed, obese-appearing woman, dressed in street clothes, sitting up on the edge of the bed with hard cervical collar. Cooperative, and in no acute distress HEENT: Extraocular movements are intact. Pupils are equal, round, and reactive to light. Mucous membranes are moist. Dentition is in good condition. She has a crowded airway, Mallampati class 3. NECK: In a hard cervical collar and was not further examined. HEART: There is a regular rate and rhythm with no murmurs, rubs, or gallops. LUNGS: Clear to auscultation bilaterally. ABDOMEN: Soft, nontender, somewhat distended, with normoactive bowel sounds and no hepatosplenomegaly. EXTREMITIES: There is no cyanosis or clubbing. There is 1+ edema, bilateral pretibial. There is no calf tenderness. Left knee is in a hinged splint. NEUROLOGIC: She is alert and oriented x3. Cranial nerves 2-12 were overall within normal limits, but she appears to lack movement in the 1st branch of cranial nerve 7 on the right, being unable to raise her right eyebrow. She is able to close the right eye completely. There is no focal weakness. Sensation is present, but reduced to light touch distally in the lower extremities and she reports loss of sensation to light touch on her right forehead, extending up onto her frontal scalp. Deep tendon reflexes are 1+ on the right Achilles, patella, and biceps tendons, and were not tested on the left due to presence of splint and knee immobilizer. She is somewhat perseverative and circumloquacious. There is no tremor. SKIN : She has a laceration on her right scalp, approximately 8 cm. It is stapled and there is no dehiscence, erythema or drainage. CURRENT LEVEL OF FUNCTION: Per the pre-admission screen, regarding diet, feeding, and swallowing, she was independent once she had setup. For toileting she required total assistance for matt care. Toilet transfers were accomplished with minimal assist and voice cues. Bed mobility required minimal assist with voice cues. Transfers were accomplished with minimal to moderate assist with voice cues. Her balance seated required contact guard and standing required minimal to moderate assist. Endurance was fair. She ambulated 5 feet with a gait belt. Regarding cognition, she was noted to have mild to moderate impairment in memory. She was considered to be a fall risk. Per this morning' s physical therapy evaluation in the hospital, she ambulated 12 feet plus 250 feet with minimal assist. On today's physical exam, she appears to be able to maintain seated balance independently. Otherwise, there are no significant changes from the preadmission screen. IMPRESSION: This is a 57-year-old woman with Osfmlez-Yprni-Hpjnu disease which has caused some sensory deficit to the lower extremities, as well as likely some weakness. She reports she has hiked the trails on [facility] 50 or 60 times in her life, but had not done so in about a year and a half when she attempted to climb the [place] or the [facility] and then descend via the very steep [place]. On her way down she reports she was already feeling fatigued and then she lost her footing and had a considerable fall. She reports that she landed in a surya, and this likely cushioned her fall and prevented more serious injury. Injuries she suffered included a scalp laceration which has been stapled, a left clavicle fracture, a left ulnar fracture, a left tibial plateau fracture, and a left occipital condylar fracture. She has been treated conservatively and is in a hard cervical collar for 4 weeks, an ulnar gutter splint, and a hinged left knee brace. Additionally , she has a sling for comfort regarding the clavicle fracture. Hospital course has been complicated by the issues regarding pain control and constipation. Additionally, she had fevers and hypoxia and had serial chest x- rays, which were questionable for pneumonia. However, she was begun on levofloxacin, she has had improved oxygenation through the day today and she denies cough, dyspnea, or sputum production. Other issues include neuropathy and what she referred to as fasciculations, for which she is treated with pregabalin and baclofen. These are presumably related to Ovukjni-Kimdr-Lrvie disease. Additionally, she has depression and anxiety, which have been treated with clonazepam, escitalopram, and topiramate. She does not feel that she gets any benefit from hydroxyzine and says she has not been using it, so it will be discontinued. She is appropriate for inpatient rehabilitation where she will have therapy with Physical Therapy, Occupational Therapy, and Speech and Language Pathology for 60 minutes per day for each discipline on 5-7 days of the week. Her expected duration is 5-7 days. Her goal is to be able to return home. She says that there are steps to enter, but she can also take an elevator. She has a roommate who will be able to provide some help, but she will need to be largely independent with self-care and mobility. For a safe discharge she will need to achieve independence or modified independence with mobility related tasks and with activities of daily living. She will need to understand her precautions and be able to maintain them and she will need to have sufficient cognitive reserve for safety in the home. It is anticipated that after discharge, she will continue to benefit from home health services including Speech and Language Pathology, a nurse's aide, Occupational Therapy, and Physical Therapy. PLAN: 1. Debility, status post fall while hiking and multiple fractures. PT and OT to optimize her mobility and activities of daily living. Pain control with oxycodone. I will increase the dosing frequency from q.4 hours to q.3 hours p.r.n., and the range is 5 to 15 mg. Ibuprofen has been prescribed, but I am going to hold that for now as I believe she continues to need DVT prophylaxis with enoxaparin. 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 2. Mild traumatic brain injury. She appears to be oriented, but is distractible and perseverative. Assessment and treatment per Speech and Language Pathology. 3. Scalp laceration, status post jennifer. Per hospital chart, the jennifer can be removed on July 27, 2017. 4. Anxiety and depression. Continue escitalopram and topiramate. She has requested that the clonazepam be changed to every evening dosing to improve her sleep and this will be initiated tonight. 5. Chronic anemia. Continue iron replacement. Check CBC in the morning, as well as an iron panel to determine her current iron level. 6. Chronic pain, possibly related to neuropathy due to Vzreduz-Phevk-Cejwj disease. Continue pregabalin as well as baclofen. 7. Question of pneumonia. She has received 1 dose of levofloxacin IV yesterday evening. Will provide another dose today p.o. and will consider discontinuation with assessment tomorrow. 8. Prophylaxis. Per report she walked 262 feet today. However, per the preadmission screen, she had only walked 5 feet. With obesity and age and immobility, she is certainly at elevated risk for DVT. We will continue enoxaparin until she demonstrates ambulating 150 feet or more, 3 times a day or more on the rehabilitation unit. Ibuprofen will not be continued with concomitant enoxaparin and history of GI bleeding. Followup: She is to follow up with orthopedic surgeon, Dr. Wallace, in 1 week or approximately July 31; with neurosurgeon, Dr. Reyes in 4 weeks; and with surgeon, Dr. Hess, in 1 week for staple removal and trauma followup. We will discuss with Orthopedics as well as General Surgery regarding whether patient has to go out for these followups if she is to remain on the rehabilitation unit greater than 1 week. /[id number]/MODL MTDD
[2017-07-24] MEDS: ACETAMINOPHEN 325 MG TAB PO PRN ×2 (21:01→22:20)
[2017-07-24] MEDS: PREGABALIN 100 MG CAP PO SCH (21:02)
[2017-07-24] MEDS: CALCIUM CARB W/VIT D 500 MG TAB PO SCH (21:02)
[2017-07-24] MEDS: SENNOSIDES/DOCUSATE SODIUM TAB PO SCH (21:02)
[2017-07-24] MEDS: clonazePAM 0.5 MG TAB PO SCH (21:09)
[2017-07-24] MEDS: BACLOFEN 10 MG TAB PO SCH (21:10)
[2017-07-25] MEDS: oxyCODONE IR 5 MG TAB PO PRN ×4 (05:24→20:26)
[2017-07-25 08:07] LABS: PLATELET COUNT 220 10^3/uL (150-400)
[2017-07-25] MEDS ORDERED: Herbals/Supplements -Info Only PO SCH (09:00)
[2017-07-25] MEDS ORDERED: ENOXAPARIN 40 MG/0.4 ML SYR SC SCH (09:00)
[2017-07-25] MEDS: POLYETHYLENE GLYCOL 3350 17 GM PKT PO SCH (09:00)
[2017-07-25] MEDS ORDERED: clonazePAM 0.5 MG TAB PO SCH (09:00)
[2017-07-25] MEDS: SENNOSIDES/DOCUSATE SODIUM TAB PO SCH ×2 (09:01→20:25)
[2017-07-25] MEDS: PREGABALIN 100 MG CAP PO SCH ×2 (09:03→20:26)
[2017-07-25] MEDS: ESCITALOPRAM OXALATE 10 MG TAB PO SCH (09:04)
[2017-07-25] MEDS: MULTIVITAMINS 1 EACH TAB PO SCH (09:05)
[2017-07-25] MEDS: BACLOFEN 10 MG TAB PO SCH ×3 (09:05→20:25)
[2017-07-25] MEDS: CALCIUM CARB W/VIT D 500 MG TAB PO SCH ×2 (09:07→20:27)
[2017-07-25] MEDS: TOPIRAMATE 100 MG TAB PO SCH (09:07)
[2017-07-25] MEDS: LOSARTAN POTASSIUM 50 MG TAB PO SCH (09:10)
[2017-07-25] MEDS: FERROUS SULFATE 325 MG TAB PO SCH (09:12)
[2017-07-25] MEDS: ACETAMINOPHEN 325 MG TAB PO PRN ×2 (11:27→20:27)
--- NOTE | 2017-07-25 13:52 | SOAPPROG ---
SOAP Progress Note Assessment/Plan: Assessment: * Debility, status post fall while hiking, with multiple fractures. PT and OT to optimize her mobility and activities of daily living. * Pain control. Adequate control with acetaminophen and oxycodone both on a p.r.n. basis. * Azdyduv-Xmwvq-Hbdjx disease. Unclear whether it is impairing her motor abilities as well as sensation and gait. Await assessment per by Physical and Occupational Therapies. * Mild traumatic brain injury. She appears to be oriented, but is distractible and perseverative. Assessment and treatment per Speech and Language Pathology. * Scalp laceration, status post sutures. Per hospital chart, the sutures can be removed on July 27, 2017. Patient is concerned regarding risk for infection and possibility of scarring she. Reviewed notes and verified that she had a loose closure done due to contamination and risk for infection. On exam there is no sign or symptom of infection and no palpable foreign body under the scalp. * Anxiety and depression. Continue escitalopram and topiramate. Per her request, changed clonazepam from the morning to HS. * Chronic anemia. Iron deficient and macrocytic. * Continue iron replacement. * B12 and TSH are normal. Await reticulocyte count and peripheral smear per pathology. * Chronic pain, possibly related to neuropathy due to Ulstzcv-Sesln-Cwaqb disease. Continue pregabalin as well as baclofen. * Question of pneumonia. * Has not had usual symptoms with minimal cough and no sputum. * Chest x-ray x2 were suggestive of possible pneumonia versus atelectasis. Negative tests for for influenza and RSV. * Continues to complain of fevers and chills. Will continue levofloxacin for a total of 5 doses. * Prophylaxis. With obesity and age and immobility, she is certainly at elevated risk for DVT. However she is ambulating well. Will discontinue enoxaparin starting 07/26/2017. Continue SCDs at night. Followup: She is to follow up with orthopedic surgeon, Dr. Wallace, in 1 week or approximately July 31; with neurosurgeon, Dr. Reyes in 4 weeks; and with surgeon, Dr. Hess, in 1 week for staple removal and trauma followup. We will discuss with Orthopedics as well as General Surgery regarding whether patient has to go out for these followups if she is to remain on the rehabilitation unit greater than 1 week. 07/25/17 15:52 Subjective: Reports feeling malaise. She still has had episodes of feeling feverish. She denies significant pain. No cough or dyspnea. She slept well. Objective: Vital Signs Temp Pulse Resp BP Pulse Ox 37.7 C 91 16 101/71 94 07/25/17 11:31 07/25/17 10:19 07/25/17 05:21 07/25/17 10:19 07/25/17 10:19 Laboratory Results 07/25/17 06:00 07/25/17 06:00 07/24/17 07/25/17 07/26/17 05:59 05:59 05:59 Intake Total 675 400 Output Total 550 2075 Balance 125 -1675 Physical Exam - Physical Exam General Appearance: WD/WN, alert, no apparent distress Respiratory: normal breath sounds, crackles (Few fine crackles left lower lung field), No rhonchi, No wheezing Cardiac/Chest: regular rate, rhythm, No edema Skin: normal color, warm/dry, other (Few abrasions over back and left shoulder) Neuro/Psych: no motor/sensory deficits, alert, normal mood/affect, oriented x 3 ICD10 Worksheet Patient Problems: Problems Problem Status Onset Alcohol abuse Active Esophagitis Active Gastritis Active Gastrointestinal hemorrhage Active Anemia Acute Head injury Acute Metatarsal fracture Acute Pre-syncope Acute Scalp laceration Acute Severe anemia Acute Ulnar fracture Acute Upper GI bleed Acute Urinary tract infection Acute
--- NOTE | 2017-07-25 16:33 | PDOREHIP ---
Admission [facility] - Admission - 3 Day Assessment Period Admission Date/Day 1: 07/24/17 Day 2: 07/25/17 Day 3: 07/26/17 - Active Diagnoses Comorbidities and Co-existing Conditions at Admission: 93699. None of the Above - Skin Conditions Unhealed Pressure Ulcer (1 or more/Stage 1 or >)-Admission: 0. No
[2017-07-25] MEDS: clonazePAM 0.5 MG TAB PO SCH (20:25)
[2017-07-26] MEDS: oxyCODONE IR 5 MG TAB PO PRN ×5 (02:43→20:40)
[2017-07-26] MEDS: POLYETHYLENE GLYCOL 3350 17 GM PKT PO SCH (07:31)
[2017-07-26] MEDS: BACLOFEN 10 MG TAB PO SCH ×3 (08:16→20:39)
[2017-07-26] MEDS: CALCIUM CARB W/VIT D 500 MG TAB PO SCH ×2 (08:18→20:43)
[2017-07-26] MEDS: ESCITALOPRAM OXALATE 10 MG TAB PO SCH (08:18)
[2017-07-26] MEDS: FERROUS SULFATE 325 MG TAB PO SCH (08:19)
[2017-07-26] MEDS: MULTIVITAMINS 1 EACH TAB PO SCH (08:19)
[2017-07-26] MEDS: LOSARTAN POTASSIUM 50 MG TAB PO SCH (08:19)
[2017-07-26] MEDS: PREGABALIN 100 MG CAP PO SCH ×2 (08:21→20:43)
[2017-07-26] MEDS: TOPIRAMATE 100 MG TAB PO SCH (08:23)
[2017-07-26] MEDS: SENNOSIDES/DOCUSATE SODIUM TAB PO SCH ×2 (08:24→20:40)
--- NOTE | 2017-07-26 10:57 | SOAPPROG ---
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 * Debility, status post fall while hiking, with multiple fractures. * Initial functional independence measure is 84 on 07/26/2017. She ambulated 150 ft with a cane and minimal assist. Transfers are done with minimal assist. She climbed 6 stairs using 1 rail. She requires total assist for wheelchair mobility. She did grooming and hygiene independently from a seated position. She dresses with minimal assist and cuing. She does shower transfer contact guard assist and base with minimal assist. Toileting requires contact guard assist. * Continue PT and OT to optimize her mobility and activities of daily living. * Pain control. Inadequate pain control overnight 07/25 - 07/26/2017. Will add oxycodone continuous release 10 mg at HS starting 07/26/2017. * Continue acetaminophen and oxycodone both on a p.r.n. basis. * Tltceqs-Jklpi-Yuxid disease. Unclear whether it is impairing her motor abilities as well as sensation and gait. Await assessment per by Physical and Occupational Therapies. * Mild traumatic brain injury. * Has word-finding hesitations but eventually find the word. She is verbose with decreased turn taking. She has decreased attention and executive function and decreased cognitive endurance. Unclear to what extent these deficits are baseline. * Continue Speech and Language Pathology. * Scalp laceration, status post sutures. Per hospital chart, the sutures can be removed on July 27, 2017. Patient is concerned regarding risk for infection and possibility of scarring she. Reviewed notes and verified that she had a loose closure done due to contamination and risk for infection. On exam there is no sign or symptom of infection and no palpable foreign body under the scalp. * Anxiety and depression. Continue escitalopram and topiramate. Per her request, changed clonazepam from the morning to HS. * Chronic anemia. Iron deficient and macrocytic. * Continue iron replacement. * B12 and TSH are normal. Reticulocyte count appropriate. Anemia worse today than yesterday. Hemoccult neg X 1. Repepat H/H in AM. * Chronic pain, possibly related to neuropathy due to Qtkhunq-Pmcox-Kryxb disease. Continue pregabalin as well as baclofen. * Question of pneumonia. * Has not had usual symptoms with minimal cough and no sputum. * Chest x-ray x2 were suggestive of possible pneumonia versus atelectasis. Negative tests for for influenza and RSV. * Continues to complain of fevers and chills. Will continue levofloxacin for a total of 5 doses. * Prophylaxis. With obesity and age and immobility, she is certainly at elevated risk for DVT. However she is ambulating well. Will discontinue enoxaparin starting 07/26/2017. Continue SCDs at night. Followup: She is to follow up with orthopedic surgeon, Dr. Wallace, in 1 week or approximately July 31; with neurosurgeon, Dr. Reyes in 4 weeks; and with surgeon, Dr. Hess, in 1 week for staple removal and trauma followup. We will discuss with Orthopedics as well as General Surgery regarding whether patient has to go out for these followups if she is to remain on the rehabilitation unit greater than 1 week. Attended staffing, 15 min. Discussed with protective services case worker, dietitian, nursing, PT , OT, TECHNICIAN ANATOMIC PATHOLOGY. Lives in 2nd floor apartment with a roommate; has an elevator to access the 2nd floor. Tentative discharge date set for 08/01/2017. 07/26/17 10:57 07/26/17 20:25 Subjective: Reports pain overnight in her neck. Also has left chest wall pain versus breast pain. Pain interfered with sleep and she was up wants to take extra oxycodone. She has had 2 large bowel movements and no longer feels constipated. Otherwise without complaint. No fevers or chills, no cough or dyspnea. Objective: Vital Signs Temp Pulse Resp BP Pulse Ox 37.2 C 68 14 104/60 98 07/26/17 07:37 07/26/17 07:37 07/26/17 07:37 07/26/17 07:37 07/26/17 07:37 Laboratory Results 07/26/17 06:00 07/25/17 06:00 07/25/17 07/26/17 07/27/17 05:59 05:59 05:59 Intake Total 675 1200 480 Output Total 550 2490 Balance 125 -1290 480 - Time Spent With Patient Time Spent With Patient: More than 35 min floor time today, including more than 50% of time in coordination of care during staffing meeting, and counseling patient. Physical Exam - Physical Exam General Appearance: WD/WN, alert, no apparent distress Neck: normal inspection, tender lateral (on left posterior) Respiratory: normal breath sounds, No crackles, No rhonchi, No wheezing Cardiac/Chest: regular rate, rhythm, edema (Trace bilateral pretibial), other ( Tender left anterolateral thorax under breast implant.), No diastolic murmur, No systolic murmur Skin: normal color, warm/dry Neuro/Psych: alert, normal mood/affect, oriented x 3 ICD10 Worksheet Patient Problems: Problems Problem Status Onset Alcohol abuse Active Esophagitis Active Gastritis Active Gastrointestinal hemorrhage Active Anemia Acute Head injury Acute Metatarsal fracture Acute Pre-syncope Acute Scalp laceration Acute Severe anemia Acute Ulnar fracture Acute Upper GI bleed Acute Urinary tract infection Acute
[2017-07-26 11:05] LABS: PLATELET COUNT 266 10^3/uL (150-400)
[2017-07-26] MEDS: clonazePAM 0.5 MG TAB PO SCH (20:44)
[2017-07-27] MEDS: oxyCODONE IR 5 MG TAB PO PRN ×4 (05:28→21:06)
[2017-07-27] MEDS: BACLOFEN 10 MG TAB PO SCH ×4 (08:25→21:06)
[2017-07-27] MEDS: FERROUS SULFATE 325 MG TAB PO SCH (08:26)
[2017-07-27] MEDS: CALCIUM CARB W/VIT D 500 MG TAB PO SCH ×2 (08:26→21:04)
[2017-07-27] MEDS: ESCITALOPRAM OXALATE 10 MG TAB PO SCH (08:26)
[2017-07-27] MEDS: MULTIVITAMINS 1 EACH TAB PO SCH (08:27)
[2017-07-27] MEDS: PREGABALIN 100 MG CAP PO SCH ×2 (08:27→21:04)
[2017-07-27] MEDS: POLYETHYLENE GLYCOL 3350 17 GM PKT PO SCH (08:27)
[2017-07-27] MEDS: SENNOSIDES/DOCUSATE SODIUM TAB PO SCH ×2 (08:28→21:04)
[2017-07-27] MEDS: TOPIRAMATE 100 MG TAB PO SCH (08:28)
[2017-07-27] MEDS: LOSARTAN POTASSIUM 50 MG TAB PO SCH (08:30)
--- NOTE | 2017-07-27 13:39 | HOSPPROG ---
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 Plan: * Debility, status post fall while hiking, with multiple fractures. - cont PT/OT, functional status worsened by collar and sling required fro traumatic fractures * Chronic pain w/ continuous opiate dependency. Acute worsening 2/2 trauma, improving s/p oxy CR HS 10mg, cont PRN oxy IR as well as home baclofen, lyrica, topamax * Yujsfln-Ymoer-Mzlpx disease. Unclear whether it is impairing her motor abilities as well as sensation and gait. Await assessment per by Physical and Occupational Therapies. * Mild traumatic brain injury. - Has word-finding hesitations but eventually find the word. She is verbose with decreased turn taking. She has decreased attention and executive function and decreased cognitive endurance. Unclear to what extent these deficits are baseline. - Continue Speech and Language Pathology. * Scalp laceration, status post sutures. Per hospital chart, the sutures can be removed on July 27, 2017, will assess and consider removal * Anxiety and depression. Continue escitalopram and topiramate. Per her request, changed clonazepam from the morning to HS. * Acute on Chronic anemia. Iron deficient and macrocytic, neg FOB, hx of transfusions - suspect that she has chronic inflam disease w/ current iron studies, and acute worsening 2/2 illness - repeat Hgb this AM, and, if < 8, then she should receive transfusion as she is symptomatic - will need PIV, RN attempting, if unable to get, will need to transport for PICC * Possible pneumonia. Chest x-ray x2 were suggestive of possible pneumonia versus atelectasis. Negative tests for for influenza and RSV. - continue levofloxacin for a total of 5 doses. Diet. Reg PPx. SCDs Code. Full Dispo. Add uncertain, she is to follow up with orthopedic surgeon, Dr. Wallace, in 1 week or approximately July 31; with neurosurgeon, Dr. Reyes in 4 weeks; and with surgeon, Dr. Hess, in 1 week for staple removal and trauma followup. We will discuss with Orthopedics as well as General Surgery regarding whether patient has to go out for these followups if she is to remain on the rehabilitation unit greater than 1 week. Subjective: less pain o/n, feels very fatigued Objective: Vital Signs Temp Pulse Resp BP Pulse Ox 37.4 C 80 16 110/66 91 L 07/27/17 08:00 07/27/17 08:00 07/27/17 08:00 07/27/17 08:30 07/27/17 08:00 Laboratory Results 07/26/17 06:00 07/25/17 06:00 07/26/17 07/27/17 07/28/17 05:59 05:59 05:59 Intake Total 1200 2500 238 Output Total 2490 1000 Balance -1290 1500 238 - Physical Exam Constitutional: no apparent distress, not in pain, chronically ill appearing, uncomfortable Ears, Nose, Mouth, Throat: other (hard collar on) Cardiovascular: regular rate and rhythym, no murmur, rub, or gallop, No edema Respiratory: no respiratory distress, no rales or rhonchi, clear to auscultation Gastrointestinal: normoactive bowel sounds, soft, non-tender abdomen, no palpable masses, No distension Musculoskeletal: other (L arm in sling) Neurologic: AAOx3, sensation intact bilaterally, No weakness, No facial droop Psychiatric: interacting appropriately, not anxious, not encephalopathic, thought process linear ICD10 Worksheet Patient Problems: Problems Problem Status Onset Alcohol abuse Active Gastrointestinal hemorrhage Active Gastritis Active Esophagitis Active Anemia Acute Pre-syncope Acute Metatarsal fracture Acute Urinary tract infection Acute Severe anemia Acute Upper GI bleed Acute Scalp laceration Acute Head injury Acute Ulnar fracture Acute
[2017-07-27] MEDS: clonazePAM 0.5 MG TAB PO SCH (21:05)
[2017-07-28] MEDS: oxyCODONE IR 5 MG TAB PO PRN ×5 (04:07→21:08)
[2017-07-28] MEDS: ESCITALOPRAM OXALATE 10 MG TAB PO SCH (08:27)
[2017-07-28] MEDS: CALCIUM CARB W/VIT D 500 MG TAB PO SCH ×2 (08:27→21:08)
[2017-07-28] MEDS: FERROUS SULFATE 325 MG TAB PO SCH (08:28)
[2017-07-28] MEDS: LOSARTAN POTASSIUM 50 MG TAB PO SCH (08:31)
[2017-07-28] MEDS: MULTIVITAMINS 1 EACH TAB PO SCH (08:31)
[2017-07-28] MEDS: PREGABALIN 100 MG CAP PO SCH ×2 (08:32→21:07)
[2017-07-28] MEDS: POLYETHYLENE GLYCOL 3350 17 GM PKT PO SCH (08:32)
[2017-07-28] MEDS: SENNOSIDES/DOCUSATE SODIUM TAB PO SCH ×2 (08:33→21:08)
[2017-07-28] MEDS: TOPIRAMATE 100 MG TAB PO SCH (08:33)
[2017-07-28] MEDS: BACLOFEN 10 MG TAB PO SCH ×3 (08:35→21:08)
--- NOTE | 2017-07-28 12:26 | HOSPPROG ---
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 Plan: * Debility, status post fall while hiking, with multiple fractures. - cont PT/OT, functional status worsened by collar and sling required for traumatic fractures - patient attempting independent mobility today, and she is distressed by her perceived poor mobility and pain * Chronic pain w/ continuous opiate dependency. Acute worsening 2/2 trauma, improving s/p oxy CR HS 10mg, cont PRN oxy IR as well as home baclofen, lyrica, topamax - patient endorses that she has a high element of emotional pain, and this is likely a significant contributor to her current pain and mobility issues - patient very emotionally distressed this AM; offered her counseling and reassurance that her care team are all working together to provide her w/ the best care * Dslklhh-Tifzk-Qvfhh disease. Unclear whether it is impairing her motor abilities as well as sensation and gait. Await assessment per by Physical and Occupational Therapies. * Mild traumatic brain injury. - Has word-finding hesitations but eventually find the word. She is verbose with decreased turn taking. She has decreased attention and executive function and decreased cognitive endurance. Unclear to what extent these deficits are baseline. - Continue Speech and Language Pathology. * Scalp laceration, status post sutures. Per hospital chart, the sutures can be removed on July 27, 2017, area appears to be well-healing, d/w RN removal today - if patient is overly distressed about other issues today and self-care, OK to defer removal until tomorrow if needed * Anxiety and depression. Continue escitalopram and topiramate. Per her request, changed clonazepam from the morning to HS. * Acute on Chronic anemia. Iron deficient and macrocytic, neg FOB x 2, hx of transfusions - suspect that she has chronic inflam disease w/ current iron studies, and acute worsening 2/2 illness - repeat Hgb 8.9, no indication for transfusion at this juncture - cont PO iron * Possible pneumonia. Chest x-ray x2 were suggestive of possible pneumonia versus atelectasis. Negative tests for for influenza and RSV. - continue levofloxacin for a total of 5 doses. Diet. Reg PPx. SCDs Code. Full Dispo. Add uncertain, she is to follow up with orthopedic surgeon, Dr. Wallace, in 1 week or approximately July 31; with neurosurgeon, Dr. Reyes in 4 weeks; and with surgeon, Dr. Hess, in 1 week for staple removal and trauma followup. We will discuss with Orthopedics as well as General Surgery regarding whether patient has to go out for these followups if she is to remain on the rehabilitation unit greater than 1 week. Subjective: patient distressed about a staff encounter this AM; she is attempting to mobilize independently around room w/ LLE in immobilizer, she feels pain in LUE Objective: Vital Signs Temp Pulse Resp BP Pulse Ox 36.6 C 83 18 98/59 L 94 07/28/17 07:49 07/28/17 07:49 07/28/17 07:49 07/28/17 08:31 07/28/17 07:49 Laboratory Results 07/28/17 09:50 07/25/17 06:00 07/27/17 07/28/17 07/29/17 05:59 05:59 05:59 Intake Total 2500 1646 508 Output Total 1000 850 Balance 1500 796 508 - Physical Exam Constitutional: chronically ill appearing, uncomfortable, No no apparent distress (moderate), No not in pain (moderate) Eyes: other (green w/ brown halo) Ears, Nose, Mouth, Throat: moist mucous membranes, hearing normal, ears appear normal, no oral mucosal ulcers Cardiovascular: regular rate and rhythym, no murmur, rub, or gallop, No edema Respiratory: no respiratory distress, no rales or rhonchi, clear to auscultation Gastrointestinal: normoactive bowel sounds, soft, non-tender abdomen, no palpable masses Skin: other (no significant erythema around anterior R scalp laceration, sutures in place w/o puckering) Musculoskeletal: other (LUE in sling) Psychiatric: not encephalopathic, anxious, other (distressed, tearful), No agitated ICD10 Worksheet Patient Problems: Problems Problem Status Onset Alcohol abuse Active Gastrointestinal hemorrhage Active Gastritis Active Esophagitis Active Anemia Acute Pre-syncope Acute Metatarsal fracture Acute Urinary tract infection Acute Severe anemia Acute Upper GI bleed Acute Scalp laceration Acute Head injury Acute Ulnar fracture Acute
[2017-07-28] MEDS: clonazePAM 0.5 MG TAB PO SCH (21:08)
[2017-07-29] MEDS: POLYETHYLENE GLYCOL 3350 17 GM PKT PO SCH (08:35)
[2017-07-29] MEDS: oxyCODONE IR 5 MG TAB PO PRN ×4 (08:37→19:18)
[2017-07-29] MEDS: BACLOFEN 10 MG TAB PO SCH ×3 (08:38→21:51)
[2017-07-29] MEDS: CALCIUM CARB W/VIT D 500 MG TAB PO SCH ×2 (08:38→21:52)
[2017-07-29] MEDS: LOSARTAN POTASSIUM 50 MG TAB PO SCH (08:39)
[2017-07-29] MEDS: MULTIVITAMINS 1 EACH TAB PO SCH (08:39)
[2017-07-29] MEDS: FERROUS SULFATE 325 MG TAB PO SCH (08:39)
[2017-07-29] MEDS: ESCITALOPRAM OXALATE 10 MG TAB PO SCH (08:39)
[2017-07-29] MEDS: PREGABALIN 100 MG CAP PO SCH ×2 (08:41→21:53)
[2017-07-29] MEDS: TOPIRAMATE 100 MG TAB PO SCH (08:41)
[2017-07-29] MEDS: SENNOSIDES/DOCUSATE SODIUM TAB PO SCH ×2 (08:42→21:51)
--- NOTE | 2017-07-29 14:20 | SOAPPROG ---
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 * Debility, status post fall while hiking, with multiple fractures. * Initial functional independence measure is 84 on 07/26/2017. She ambulated 150 ft with a cane and minimal assist. Transfers are done with minimal assist. She climbed 6 stairs using 1 rail. She requires total assist for wheelchair mobility. She did grooming and hygiene independently from a seated position. She dresses with minimal assist and cuing. She does shower transfer contact guard assist and base with minimal assist. Toileting requires contact guard assist. * Has advanced to independent in her room using a cane. * Continue PT and OT to optimize her mobility and activities of daily living. * Pain control. Much improved with oxycodone continuous release 10 mg at HS starting 07/26/2017. * Using oxycodone immediate release 4 - 5 times a day in the range of 50-70 mg per day. * Rdydybx-Eukio-Itikc disease. Unclear whether it is impairing her motor abilities as well as sensation and gait. Await assessment per by Physical and Occupational Therapies. * Mild traumatic brain injury. * Has word-finding hesitations but eventually find the word. She is verbose with decreased turn taking. She has decreased attention and executive function and decreased cognitive endurance. Unclear to what extent these deficits are baseline. * Continue Speech and Language Pathology. * Scalp laceration, status post sutures. * Remove sutures 07/29/2017. * She is interested in a plastic surgery follow-up after discharge. * Anxiety and depression. Continue escitalopram and topiramate. Per her request, changed clonazepam from the morning to HS. * Chronic anemia. Iron deficient and macrocytic. * Continue iron replacement. * B12 and TSH are normal. Reticulocyte count appropriate. Hemoccult neg X 2. Anemia has stabilized. * Chronic pain, possibly related to neuropathy due to Fskjeqg-Odpnw-Qybkm disease. Continue pregabalin as well as baclofen. * Question of pneumonia. * Has not had usual symptoms with minimal cough and no sputum. * Chest x-ray x2 were suggestive of possible pneumonia versus atelectasis. Negative tests for for influenza and RSV. * Completed levofloxacin for a total of 5 doses. Observe for return of symptoms. * Prophylaxis. With obesity and age and immobility, she is certainly at elevated risk for DVT. However she is ambulating well. Will discontinue enoxaparin starting 07/26/2017. Continue SCDs at night. Followup: She is to follow up with orthopedic surgeon, Dr. Wallace, in 1 week or approximately July 31; with neurosurgeon, Dr. Reyes in 4 weeks; and with surgeon, Dr. Hess, in 1 week for staple removal and trauma followup. We will discuss with Orthopedics as well as General Surgery regarding whether patient has to go out for these followups if she is to remain on the rehabilitation unit greater than 1 week. Lives in 2nd floor apartment with a roommate; has an elevator to access the 2nd floor. Tentative discharge date set for 08/01/2017. 07/29/17 14:11 Subjective: Reports that she is feeling better, pain is controlled, sleeping well. She has been made independent in her room with a cane. Objective: Vital Signs Temp Pulse Resp BP Pulse Ox 37.1 C 70 16 105/60 99 07/29/17 07:28 07/29/17 07:28 07/29/17 07:28 07/29/17 07:28 07/29/17 07:28 Laboratory Results 07/28/17 09:50 07/25/17 06:00 07/28/17 07/29/17 07/30/17 05:59 05:59 05:59 Intake Total 1646 1613 700 Output Total 850 500 550 Balance 796 1113 150 Physical Exam - Physical Exam General Appearance: WD/WN, alert, no apparent distress Respiratory: normal breath sounds, other (Breath sounds slightly diminished at the right lower lung field.), No crackles, No rhonchi, No wheezing Cardiac/Chest: regular rate, rhythm, No edema, No diastolic murmur, No systolic murmur Skin: normal color, warm/dry, other (Right forehead incision well approximated, sutures present, no erythema or drainage.) Neuro/Psych: alert, normal mood/affect, oriented x 3 ICD10 Worksheet Patient Problems: Problems Problem Status Onset Alcohol abuse Active Esophagitis Active Gastritis Active Gastrointestinal hemorrhage Active Anemia Acute Head injury Acute Metatarsal fracture Acute Pre-syncope Acute Scalp laceration Acute Severe anemia Acute Ulnar fracture Acute Upper GI bleed Acute Urinary tract infection Acute
[2017-07-29] MEDS: clonazePAM 0.5 MG TAB PO SCH (21:52)
[2017-07-30] MEDS: oxyCODONE IR 5 MG TAB PO PRN ×5 (01:20→19:33)
[2017-07-30] MEDS: SENNOSIDES/DOCUSATE SODIUM TAB PO SCH ×2 (08:35→20:26)
[2017-07-30] MEDS: TOPIRAMATE 100 MG TAB PO SCH (08:36)
[2017-07-30] MEDS: PREGABALIN 100 MG CAP PO SCH ×2 (08:36→20:25)
[2017-07-30] MEDS: LOSARTAN POTASSIUM 50 MG TAB PO SCH (08:36)
[2017-07-30] MEDS: BACLOFEN 10 MG TAB PO SCH ×3 (08:36→20:25)
[2017-07-30] MEDS: ESCITALOPRAM OXALATE 10 MG TAB PO SCH (08:36)
[2017-07-30] MEDS: CALCIUM CARB W/VIT D 500 MG TAB PO SCH ×2 (08:37→20:24)
[2017-07-30] MEDS: POLYETHYLENE GLYCOL 3350 17 GM PKT PO SCH (08:37)
[2017-07-30] MEDS: MULTIVITAMINS 1 EACH TAB PO SCH (08:37)
[2017-07-30] MEDS: FERROUS SULFATE 325 MG TAB PO SCH (08:37)
--- NOTE | 2017-07-30 15:27 | SOAPPROG ---
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 * Debility, status post fall while hiking, with multiple fractures. * Initial functional independence measure is 84 on 07/26/2017. She ambulated 150 ft with a cane and minimal assist. Transfers are done with minimal assist. She climbed 6 stairs using 1 rail. She requires total assist for wheelchair mobility. She did grooming and hygiene independently from a seated position. She dresses with minimal assist and cuing. She does shower transfer contact guard assist and base with minimal assist. Toileting requires contact guard assist. * Has advanced to independent in her room using a cane. * Continue PT and OT to optimize her mobility and activities of daily living. * Pain control. Much improved with oxycodone continuous release 10 mg at HS starting 07/26/2017. * Using oxycodone immediate release 4 - 5 times a day in the range of 50-70 mg per day. * Opqfhdl-Csguq-Rigwe disease. Unclear whether it is impairing her motor abilities as well as sensation and gait. Await assessment per by Physical and Occupational Therapies. * Mild traumatic brain injury. * Has word-finding hesitations but eventually finds the word. She is verbose with decreased turn taking. She has decreased attention and executive function and decreased cognitive endurance. Unclear to what extent these deficits are baseline. * Continue Speech and Language Pathology. * Scalp laceration, status post sutures. * Removed sutures 07/29/2017. * She is interested in a plastic surgery follow-up after discharge. * Anxiety and depression. Continue escitalopram and topiramate. Per her request, changed clonazepam from the morning to HS. * Chronic anemia. Iron deficient and macrocytic. * Continue iron replacement. * B12 and TSH are normal. Reticulocyte count appropriate. Hemoccult neg X 2. Anemia has stabilized. * Chronic pain, possibly related to neuropathy due to Mleapqk-Cerxc-Zgjsb disease. Continue pregabalin as well as baclofen. * Question of pneumonia. * Has not had usual symptoms with minimal cough and no sputum. * Chest x-ray x2 were suggestive of possible pneumonia versus atelectasis. Negative tests for for influenza and RSV. * Completed levofloxacin for a total of 5 doses. Observe for return of symptoms. * Prophylaxis. With obesity and age and immobility, she is certainly at elevated risk for DVT. However she is ambulating well. Will discontinue enoxaparin starting 07/26/2017. Continue SCDs at night. Followup: She is to follow up with orthopedic surgeon, Dr. Wallace, in 1 week or approximately July 31; with neurosurgeon, Dr. Reyes in 4 weeks; and with surgeon, Dr. Hessfor trauma followup. We will discuss with Orthopedics as well as General Surgery regarding whether patient has to go out for these followups if she is to remain on the rehabilitation unit greater than 1 week. Lives in 2nd floor apartment with a roommate; has an elevator to access the 2nd floor. Tentative discharge date set for 08/01/2017. 07/30/17 15:23 Subjective: Sleeping well. Pain adequately controlled. Bowels moving. No fevers or chills , no cough or dyspnea. Objective: Vital Signs Temp Pulse Resp BP Pulse Ox 36.9 C 75 18 113/75 94 07/30/17 15:18 07/30/17 08:00 07/30/17 08:00 07/30/17 08:36 07/30/17 08:00 Laboratory Results 07/28/17 09:50 07/25/17 06:00 07/29/17 07/30/17 07/31/17 05:59 05:59 05:59 Intake Total 1613 1800 240 Output Total 500 550 Balance 1113 1250 240 Physical Exam - Physical Exam General Appearance: WD/WN, alert, no apparent distress Respiratory: No respiratory distress, No accessory muscle use Skin: normal color, warm/dry Extremities: other (Left knee with swelling and tenderness.) Neuro/Psych: alert, normal mood/affect, oriented x 3 ICD10 Worksheet Patient Problems: Problems Problem Status Onset Alcohol abuse Active Esophagitis Active Gastritis Active Gastrointestinal hemorrhage Active Anemia Acute Head injury Acute Metatarsal fracture Acute Pre-syncope Acute Scalp laceration Acute Severe anemia Acute Ulnar fracture Acute Upper GI bleed Acute Urinary tract infection Acute
[2017-07-30] MEDS: ACETAMINOPHEN 325 MG TAB PO PRN (19:58)
[2017-07-30] MEDS: clonazePAM 0.5 MG TAB PO SCH (20:25)
[2017-07-31] MEDS: oxyCODONE IR 5 MG TAB PO PRN ×5 (04:22→21:04)
[2017-07-31] MEDS: TOPIRAMATE 100 MG TAB PO SCH (08:20)
[2017-07-31] MEDS: POLYETHYLENE GLYCOL 3350 17 GM PKT PO SCH (08:22)
[2017-07-31] MEDS: MULTIVITAMINS 1 EACH TAB PO SCH (08:22)
[2017-07-31] MEDS: PREGABALIN 100 MG CAP PO SCH ×2 (08:22→21:06)
[2017-07-31] MEDS: SENNOSIDES/DOCUSATE SODIUM TAB PO SCH ×2 (08:22→21:00)
[2017-07-31] MEDS: CALCIUM CARB W/VIT D 500 MG TAB PO SCH ×2 (08:23→21:06)
[2017-07-31] MEDS: BACLOFEN 10 MG TAB PO SCH ×3 (08:23→21:04)
[2017-07-31] MEDS: LOSARTAN POTASSIUM 50 MG TAB PO SCH (08:23)
[2017-07-31] MEDS: ESCITALOPRAM OXALATE 10 MG TAB PO SCH (08:23)
[2017-07-31] MEDS: FERROUS SULFATE 325 MG TAB PO SCH (08:24)
[2017-07-31] MEDS: ACETAMINOPHEN 325 MG TAB PO PRN (10:03)
--- NOTE | 2017-07-31 12:12 | SOAPPROG ---
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 * Debility, status post fall while hiking, with multiple fractures. * Initial functional independence measure is 84 on 07/26/2017; improved to 103 as of 07/31/2017. Independent 7:00 a.m. to 10:00 p.m. In her room with a cane. Modified independent for upper and lower body dressing. * Continue PT and OT to optimize her mobility and activities of daily living. * Pain control. Much improved with oxycodone continuous release 10 mg at HS starting 07/26/2017. * Using oxycodone immediate release 4 - 5 times a day in the range of 50-70 mg per day. * Mild traumatic brain injury. * Has word-finding hesitations but eventually finds the word. She is verbose with decreased turn taking. She has decreased attention and executive function and decreased cognitive endurance. Likely at baseline. * Continue Speech and Language Pathology. * Sensation of bloating. * Bladder scan with negligible post-void residual. * Urinalysis normal. CBC without leukocytosis. * Scalp laceration, status post sutures. * Removed sutures 07/29/2017. * She is interested in a plastic surgery follow-up after discharge. * Anxiety and depression. Continue escitalopram and topiramate. Per her request, changed clonazepam from the morning to HS. * Chronic anemia. Iron deficient and macrocytic. * Continue iron replacement. * B12 and TSH are normal. Reticulocyte count appropriate. Hemoccult neg X 2. Anemia improving on CBC 07/31/2017. * Chronic pain, possibly related to neuropathy due to Fsutqci-Yrrsw-Xzmyc disease. Also has sciatica. Continue pregabalin, topiramate and baclofen. * Question of pneumonia. * Has not had usual symptoms with minimal cough and no sputum. * Chest x-ray x2 were suggestive of possible pneumonia versus atelectasis. Negative tests for for influenza and RSV. * Completed levofloxacin for a total of 5 doses. Observe for return of symptoms. * Prophylaxis. With obesity and age and immobility, she is certainly at elevated risk for DVT. However she is ambulating well. Will discontinue enoxaparin starting 07/26/2017. Continue SCDs at night. Followup: She is to follow up with orthopedic surgeon, Dr. Wallace, in 1 week or approximately July 31; with neurosurgeon, Dr. Reyes in 4 weeks; and with surgeon, Dr. Hessfor trauma followup. We will discuss with Orthopedics as well as General Surgery regarding whether patient has to go out for these followups if she is to remain on the rehabilitation unit greater than 1 week. Lives in 2nd floor apartment with a roommate; has an elevator to access the 2nd floor. Discharge tomorrow 08/01/2017. 08/01/17 13:57 Subjective: Complains of feeling bloated. Gestures over lower pelvis. Unsure that she has emptying her bladder completely. Bowels are moving. Good appetite. Objective: Vital Signs Temp Pulse Resp BP Pulse Ox 37.3 C 73 16 115/79 93 07/31/17 09:58 07/31/17 07:52 07/31/17 07:52 07/31/17 08:23 07/31/17 07:52 Laboratory Results 07/28/17 09:50 07/25/17 06:00 07/30/17 07/31/17 08/01/17 05:59 05:59 05:59 Intake Total 1800 980 400 Output Total 550 Balance 1250 980 400 Physical Exam - Physical Exam General Appearance: WD/WN, alert, no apparent distress Respiratory: normal breath sounds, No crackles, No rhonchi, No wheezing Cardiac/Chest: regular rate, rhythm, No edema, No diastolic murmur, No systolic murmur Abdomen: normal bowel sounds, non-tender, soft, No distended Skin: normal color, warm/dry Neuro/Psych: alert, normal mood/affect, oriented x 3 ICD10 Worksheet Patient Problems: Problems Problem Status Onset Alcohol abuse Active Esophagitis Active Gastritis Active Gastrointestinal hemorrhage Active Anemia Acute Head injury Acute Metatarsal fracture Acute Pre-syncope Acute Scalp laceration Acute Severe anemia Acute Ulnar fracture Acute Upper GI bleed Acute Urinary tract infection Acute
--- NOTE | 2017-07-31 13:13 | PDOREHIP ---
Admission [facility] - Admission - 3 Day Assessment Period Admission Date/Day 1: 07/24/17 Day 2: 07/25/17 Day 3: 07/26/17 Discharge [facility] - Discharge - 3 Day Assessment Period 2 Days Prior to Anticipated Discharge Date: 07/30/17 1 Day Prior to Anticipated Discharge Date: 07/31/17 Anticipated Discharge Date: 08/01/17 - Discharge Skin Conditions Unhealed Pressure Ulcer (1 or more/Stage 1 or >)-Discharge: 0. No
[2017-07-31 17:20] LABS: PLATELET COUNT 421 10^3/uL (150-400)
[2017-07-31] MEDS: clonazePAM 0.5 MG TAB PO SCH (21:06)
[2017-08-01] MEDS: oxyCODONE IR 5 MG TAB PO PRN ×4 (00:26→12:12)
[2017-08-01] MEDS: FERROUS SULFATE 325 MG TAB PO SCH (08:23)
[2017-08-01] MEDS: PREGABALIN 100 MG CAP PO SCH (08:23)
[2017-08-01] MEDS: ESCITALOPRAM OXALATE 10 MG TAB PO SCH (08:23)
[2017-08-01] MEDS: POLYETHYLENE GLYCOL 3350 17 GM PKT PO SCH (08:23)
[2017-08-01] MEDS: BACLOFEN 10 MG TAB PO SCH (08:23)
[2017-08-01] MEDS: TOPIRAMATE 100 MG TAB PO SCH (08:24)
[2017-08-01] MEDS: SENNOSIDES/DOCUSATE SODIUM TAB PO SCH (08:24)
[2017-08-01] MEDS: LOSARTAN POTASSIUM 50 MG TAB PO SCH (08:24)
[2017-08-01] MEDS: MULTIVITAMINS 1 EACH TAB PO SCH (08:24)
[2017-08-01] MEDS: CALCIUM CARB W/VIT D 500 MG TAB PO SCH (08:24)
[2017-08-01 08:29] VITALS: BP 103/65
--- NOTE | 2017-08-01 14:28 | GDS ---
[f rep st] DISCHARGE SUMMARY ADMITTING DIAGNOSIS: Multiple trauma and concussion from a fall. DISCHARGE DIAGNOSIS: Multiple trauma and concussion from a fall. OTHER DISCHARGE DIAGNOSES: Scalp laceration, chronic anemia, chronic pain. CONSULTATIONS: There were none. PROCEDURES: There were none. COMPLICATIONS: There were none. HISTORY AND HOSPITAL COURSE: This patient was admitted from [facility]. She had suffered a fall while hiking on 07/20/2017, and suffered fractures to the left occipital condyle, the left clavicle, the left ulna, left ribs and left tibial plateau, and had a concussion. She was stabilized and sent to rehabilitation where she did well. Her initial functional independence measure was 84 on 07/26/2017, which is consistent with assisted living level of function. She improved to 103 on 07/31, which is consistent with independent function. She was allowed to be independent in her room using a cane. She had achieved modified independence with assistive devices for upper and lower body dressing. She initially had issues with pain control. Oxycodone continuous release was added, 10 mg at bedtime starting 07/26/2017. Subsequently, she had improved pain control, though she was typically using oxycodone immediate release 4-5 times a day in the range of 50 to 70 mg per day. Regarding concussion, she was evaluated and treated by Speech and Language Pathology. She was found to have verbosity and decreased turn-taking in conversation, and decreased attention and executive function. These conditions were thought to be at baseline. A scalp laceration had been sutured in the hospital. Sutures were removed on , and there was no dehiscence, drainage, or signs or symptoms of infection. She had chronic anemia. It was both iron-deficient and macrocytic. B12 and TSH were normal, so there was no specific explanation for the macrocytosis. Reticulocyte count was appropriately elevated, and Hemoccult was negative X 3. Nurse noted a low fever of approximately between 99 and 100 on the day before discharge. She also had a sensation of bloating, which was specifically located in the pelvis. Bladder scan was done for a postvoid residual which was negligible. She had a urinalysis which was normal. She had CBC with no elevated white blood cell count, so there was no further evaluation regarding infectious disease done. History of Ojnngpv-Ulcao-Cnkqg disease. It was unclear to what extent this may have contributed toward her fall while hiking. She continued to have adequate symptom control with pregabalin, topiramate and baclofen. LABS AND STUDIES: During her stay, CBC on admission showed anemia with a hemoglobin of 8.2 and hematocrit of 26.8. These declined to 7.5 in 23.3 on . On 07/31 they had improved to 8.9 and 27.3. Macrocytosis that was present previously was not present on the CBC of 07/31/2017. Serum chemistry showed normal renal function and electrolytes on 07/25/2017. Her iron was 23, which was low. Her total iron-binding capacity was normal at 274, and her percent saturation of iron was at 8%. Vitamin B12 was normal at 265. TSH was normal at 1.55. Urinalysis was completely within normal limits. She had evaluation for influenza and was negative for influenza A or B by PCR. She was Hemoccult negative x3. She was also found to be negative for RSV by PCR. DISCHARGE PLAN: Condition upon discharge is good. Activity is ad suma but she is to maintain nonweightbearing of the left upper extremity due to ulnar fracture, until after followup with Orthopedic Surgery. Diet is regular. Next appointments: She has follow up with primary care provider, Imer Saleh on 08/06/2017; with orthopedic surgeon, Dr. Aldo Wallace on 08/07/2017; and with neurosurgeon, Dr. Ian Reyes on 08/28/2017. MEDICATIONS AT DISCHARGE: 1. Acetaminophen 650 mg p.o. q.4 hours p.r.n. 2. Baclofen 30 mg p.o. t.i.d. 3. Calcium carbonate/vitamin D 500 mg/200 international units 1 p.o. b.i.d. 4. Escitalopram 20 mg p.o. q. day. 5. Ferrous sulfate 325 mg p.o. q. day. 6. Losartan 50 mg p.o. q. day. 7. Multivitamin 1 p.o. q. day. 8. Oxycodone CR 10 mg p.o. at q.h.s. 9. Oxycodone IR 5-15 mg p.o. q.4 hours p.r.n. 10. Polyethylene glycol 17 g in water p.o. q. day. 11. Pregabalin 200 mg p.o. b.i.d. 12. Senna/docusate 1-2 tablets p.o. b.i.d. 13. Topiramate 200 mg p.o. q. day. 14. Clonazepam 0.5 mg PO QHS. ISSUES TO BE ADDRESSED AT FOLLOWUP: 1. Functional status. She will continue outpatient physical therapy and she can follow up with her primary care provider. Once weight-bearing is allowed on the left upper extremity she might benefit from occupational therapy. 2. Anemia. She should have routine followup in several weeks regarding anemia and iron stores. 3. Left ulnar fracture. Continue nonweightbearing until cleared by orthopedic surgeon, Dr. aWllace. She will continue in a gutter splint, which was applied in the hospital as well. 4. Occipital condylar fracture, to follow up with neurosurgeon, Dr. Reyes, and to continue wearing hard cervical collar until followup. Greater than 30 min were spent on this discharge summary including coordination of care, medication reconciliation, and counseling patient. /[id number]/MODL MTDD
== END 2017-08-01 14:00 | disposition home or self-care (01) | DRG 945 ==
LOC: BREH 16:43
PROVIDERS: ADMIT Internal Medicine Hospice and Palliative Medicine; ATTEND Internal Medicine Hospice and Palliative Medicine
PROC: F0636ZZ Communicative/Cognitive Integration Skills Treatment of Neurological System - Whole Body (ICD-10-PCS; principal; 2017-07-24)
PROC: F07M3ZZ Motor Function Treatment of Musculoskeletal System - Whole Body (ICD-10-PCS; principal; 2017-07-24)
PROC: F08Z7ZZ Vocational Activities and Functional Community or Work Reintegration Skills Treatment (ICD-10-PCS; principal; 2017-07-24)
DX: R53.81 Other malaise (principal); S06.9X9D Unspecified intracranial injury with loss of consciousness of unspecified duration, subsequent encounter; S02.113D Unspecified occipital condyle fracture, subsequent encounter for fracture with routine healing; S52.202D Unspecified fracture of shaft of left ulna, subsequent encounter for closed fracture with routine healing; S42.002D Fracture of unspecified part of left clavicle, subsequent encounter for fracture with routine healing; S82.142D Displaced bicondylar fracture of left tibia, subsequent encounter for closed fracture with routine healing; G60.0 Hereditary motor and sensory neuropathy; G89.29 Other chronic pain; J18.9 Pneumonia, unspecified organism; D53.9 Nutritional anemia, unspecified; G47.33 Obstructive sleep apnea (adult) (pediatric); Z87.11 Personal history of peptic ulcer disease; Z90.13 Acquired absence of bilateral breasts and nipples; E66.9 Obesity, unspecified
CPT/HCPCS: 82607-90; 92507-GN; 92522-GN; 97110-GP; 97116-GP; 97162-GP; 97166-GO; 97530-GO; 97530-GP; 97535-GO; J1650

== ENCOUNTER → 2017-08-30 | Outpatient (CLI) | payer MEDICAID | LOC: FLAB 13:40 → FIMAGING 13:40 → EDSTATUS 13:43 | PROVIDERS: ATTEND Psychiatry & Neurology Neurology | DX: R42 Dizziness and giddiness (principal); S02.113D Unspecified occipital condyle fracture, subsequent encounter for fracture with routine healing ==

== ENCOUNTER → 2017-10-09 | Outpatient (CLI) | payer MEDICAID | LOC: FIMAGING 06:39 | PROVIDERS: ATTEND Neurological Surgery | DX: S02.113D Unspecified occipital condyle fracture, subsequent encounter for fracture with routine healing (principal); M50.33 Other cervical disc degeneration, cervicothoracic region; M48.02 Spinal stenosis, cervical region; M53.83 Other specified dorsopathies, cervicothoracic region ==

== ENCOUNTER 2018-10-11 11:10 | Emergency (ER) | payer MEDICAID | END 2018-10-11 13:23 | disposition home or self-care (01) ==